=== PATIENT | male | born 1935 | race Two or more races ===

== ENCOUNTER 2018-10-06 19:01 | Inpatient (IN) | payer MEDICARE, MEDICAID ==
[~2018-10-06] VITALS: Ht 182.9 cm; Wt 74.4 kg
--- NOTE | 2018-10-06 19:19 | NUR ---
ED Nurse Note: PAtient BIBA from SNF, with complaints of low HGB.
[2018-10-06] MEDS ORDERED: DEPAKOTE250 MG PO (19:25)
[2018-10-06] MEDS ORDERED: CYMBALTA60 MG ORAL (19:25)
[2018-10-06] MEDS ORDERED: CATAPRES0.1 MG ORAL (19:25)
[2018-10-06] MEDS ORDERED: LEVOTHYROXINE125 MCG ORAL (19:25)
[2018-10-06] MEDS ORDERED: SALINE NOSE SPR45 ML NASAL (19:25)
[2018-10-06] MEDS ORDERED: LOSARTAN POTASS50 MG ORAL (19:25)
[2018-10-06] MEDS ORDERED: DOCUSIL100 M1 ORAL (19:25)
[2018-10-06] MEDS ORDERED: MIRALAX17 G2 ORAL (19:25)
[2018-10-06] MEDS ORDERED: VITAMIN D-32000 UNI1 PO (19:25)
[2018-10-06 19:42] LABS: HEMATOCRIT 17.7 % (42.0-52.0); MEAN CORPUSCULAR VOLUME 75 FL (80-99); PLATELET COUNT 270 K/UL (150-450); RED BLOOD COUNT 2.36 M/UL (4.70-6.10); RED CELL DISTRIBUTION WIDTH 16.3 % (11.6-14.8); WHITE BLOOD COUNT 5.1 K/UL (4.8-10.8)
[2018-10-06 19:52] LABS: HEMOGLOBIN 5.5 G/DL (14.2-18.0)
[2018-10-06 19:54] LABS: ANION GAP 7 mmol/L (5-15); BLOOD UREA NITROGEN 22 mg/dL (7-18); CALCIUM 8.3 MG/DL (8.5-10.1); CARBON DIOXIDE 29 MMOL/L (21-32); CHLORIDE 104 MMOL/L (98-107); CREATININE 0.7 MG/DL (0.55-1.30); SODIUM 140 MMOL/L (136-145)
[2018-10-06 19:58] LABS: ALANINE AMINOTRANSFERASE 34 U/L (12-78); ALBUMIN 2.7 G/DL (3.4-5.0); ALBUMIN/GLOBULIN RATIO 0.8 (1.0-2.7); ALKALINE PHOSPHATASE 77 U/L (46-116); ASPARTATE AMINO TRANSFERASE 30 U/L (15-37); BILIRUBIN,TOTAL 0.2 MG/DL (0.2-1.0)
[2018-10-06 20:01] VITALS: BP 124/62
--- NOTE | 2018-10-06 20:19 | NUR ---
ED Nurse Note: PATIENT RELAXING, APPEARS PALE, WITH LITTLE ENERGY. VITAL SIGNS STABLE.
[2018-10-06 20:23] LABS: % IRON SATURATION 3 % (15-50); IRON 12 ug/dL (50-175); TOTAL IRON BINDING CAPACITY 350 ug/dL (250-450)
[2018-10-06 20:38] LABS: FERRITIN 5 NG/ML (8-388)
--- NOTE | 2018-10-06 21:36 | Emergency Room Report ---
History of Present Illness General Chief Complaint: Abnormal Labs Source: Patient Present Illness HPI 83-year-old male presents ED for evaluation. Brought in by EMS from long term facility for abnormal labs. Noted to have low hemoglobin on recent lab draw. Patient has history of prostate problems and is says he is having profound hematuria. Denies fevers or chills. States he feels weak. Denies blood in stool. Denies any blood thinners. No other aggravating relieving factors. Denies any other associated symptoms Allergies: Coded Allergies: No Known Allergies (Unverified , 10/06/18) Patient History Past Medical History: HTN Past Surgical History: none Pertinent Family History: none Social History: Denies: smoking, alcohol use, drug use Immunizations: UTD Reviewed Nursing Documentation: PMH: Agreed; PSxH: Agreed Nursing Documentation-PMH Hx Hypertension: Yes Review of Systems All Other Systems: negative except mentioned in HPI Physical Exam Vital Signs Date Time Temp Pulse Resp B/P (MAP) Pulse Ox O2 Delivery O2 Flow Rate FiO2 10/06/18 19:09 98.2 75 24 132/72 (92) 94 Room Air Sp02 EP Interpretation: reviewed, normal General Appearance: cachetic, thin Head: normocephalic, atraumatic Eyes: bilateral eye normal inspection, bilateral eye PERRL ENT: hearing grossly normal, normal pharynx, no angioedema, normal voice Neck: full range of motion, supple/symm/no masses Respiratory: chest non-tender, lungs clear, normal breath sounds, speaking full sentences Cardiovascular #1: regular rate, rhythm, no edema Cardiovascular #2: 2+ carotid (R), 2+ carotid (L), 2+ radial (R), 2+ radial (L) , 2+ dorsalis pedis (R), 2+ dorsalis pedis (L) Gastrointestinal: normal bowel sounds, non tender, soft, non-distended, no guarding, no rebound Rectal: deferred Genitourinary: normal inspection, no CVA tenderness Musculoskeletal: back normal, gait/station normal, normal range of motion, non- tender Neurologic: alert, oriented x3, responsive, motor strength/tone normal, sensory intact, speech normal Psychiatric: judgement/insight normal, memory normal, mood/affect normal, no suicidal/homicidal ideation Reflexes: 3+ bicep (R), 3+ bicep (L), 3+ tricep (R), 3+ tricep (L), 3+ knee (R) , 3+ knee (L) Skin: no rash, warm/dry, well hydrated, pallor Lymphatic: no adenopathy Medical Decision Making Diagnostic Impression: Primary Impression: Hematuria Qualified Codes: R31.9 - Hematuria, unspecified Additional Impression: Anemia Qualified Codes: D64.9 - Anemia, unspecified ER Course Hospital Course 83 yo M presents to ED for continued hematuria. low hb on recent labs. Differential diagnoses include: anemia requiring transfusion, microcytic anemia , macrocytic anemia, heavy blood loss Clinical course Patient placed on stretcher. After initial history and physical I ordered labs including CBC and type and screen. Labs- hemoglobin/hematocrit 5.5/17.7. Electrolytes okay, no leukocytosis. coags ok 2 units PRBCs ordered. patient will be admitted to Dr Temple for further care and support Diagnosis - hematuria, anemia Admitted to floor in serious condition Labs Test 10/06/18 19:20 White Blood Count 5.1 K/UL (4.8-10.8) Red Blood Count 2.36 M/UL (4.70-6.10) Hemoglobin 5.5 G/DL (14.2-18.0) Hematocrit 17.7 % (42.0-52.0) Mean Corpuscular Volume 75 FL (80-99) Mean Corpuscular Hemoglobin 23.3 PG (27.0-31.0) Mean Corpuscular Hemoglobin Concent 31.1 G/DL (32.0-36.0) Red Cell Distribution Width 16.3 % (11.6-14.8) Platelet Count 270 K/UL (150-450) Mean Platelet Volume 4.9 FL (6.5-10.1) Neutrophils (%) (Auto) % (45.0-75.0) Lymphocytes (%) (Auto) % (20.0-45.0) Monocytes (%) (Auto) % (1.0-10.0) Eosinophils (%) (Auto) % (0.0-3.0) Basophils (%) (Auto) % (0.0-2.0) Differential Total Cells Counted 100 Neutrophils % (Manual) 68 % (45-75) Lymphocytes % (Manual) 30 % (20-45) Monocytes % (Manual) 1 % (1-10) Eosinophils % (Manual) 1 % (0-3) Basophils % (Manual) 0 % (0-2) Band Neutrophils 0 % (0-8) Platelet Estimate Adequate Platelet Morphology Normal Hypochromasia 3+ Anisocytosis 1+ Prothrombin Time 10.6 SEC (9.30-11.50) Prothromb Time International Ratio 1.0 (0.9-1.1) Activated Partial Thromboplast Time 22 SEC (23-33) Sodium Level 140 MMOL/L (136-145) Potassium Level 4.0 MMOL/L (3.5-5.1) Chloride Level 104 MMOL/L (98-107) Carbon Dioxide Level 29 MMOL/L (21-32) Anion Gap 7 mmol/L (5-15) Blood Urea Nitrogen 22 mg/dL (7-18) Creatinine 0.7 MG/DL (0.55-1.30) Estimat Glomerular Filtration Rate mL/min (>60) Glucose Level 113 MG/DL (74-106) Calcium Level 8.3 MG/DL (8.5-10.1) Iron Level 12 ug/dL (50-175) Total Iron Binding Capacity 350 ug/dL (250-450) Percent Iron Saturation 3 % (15-50) Unsaturated Iron Binding 338 ug/dL (112-346) Ferritin 5 NG/ML (8-388) Total Bilirubin 0.2 MG/DL (0.2-1.0) Aspartate Amino Transf (AST/SGOT) 30 U/L (15-37) Alanine Aminotransferase (ALT/SGPT) 34 U/L (12-78) Alkaline Phosphatase 77 U/L (46-116) Total Protein 6.1 G/DL (6.4-8.2) Albumin 2.7 G/DL (3.4-5.0) Globulin 3.4 g/dL Albumin/Globulin Ratio 0.8 (1.0-2.7) Lipase 202 U/L (73-393) Last Vital Signs Date Time Temp Pulse Resp B/P (MAP) Pulse Ox O2 Delivery O2 Flow Rate FiO2 10/06/18 20:01 98.2 75 28 124/62 94 Room Air Status: improved Disposition: ADMITTED INPATIENT Condition: Serious Referrals: Alban Temple MD (PCP) Mariano Sykes MD October 06, 2018 21:35
[2018-10-06 22:18] VITALS: BP 150/65
--- NOTE | 2018-10-06 22:18 | NUR ---
ED Nurse Note: PATIENT BEGINNING BLOOD TRANSFUSION AT THIS TIME. VITAL SIGNS STABLE PATIENT HAS NO COMPLAINTS.
[2018-10-06 22:33] VITALS: BP 129/49
--- NOTE | 2018-10-07 00:35 | NUR ---
ED Nurse Note: Patient ready for transport to floor following transfusion of PRBCs. Patient A&Ox4, no s/s of transfusion reaction. [facility]
[2018-10-07 01:00] VITALS: BP 198/88
--- NOTE | 2018-10-07 01:00 | NUR ---
NURSE NOTES: received pt from ER, pt AOx4, no acute distress noted, pt with BP 198/88, will call dr miles for BP prn. bed locked and lowest position, bed side rail upx2. call light within reach. will continue to monitor for any change in condition.
[2018-10-07] MEDS ORDERED: Ocean Nasal Spray 45ml NASAL PRN (02:00)
--- NOTE | 2018-10-07 02:30 | NUR ---
NURSE NOTES: received Dr miles orders, orders noted and carried out. pt in bed resting comfortable.
--- NOTE | 2018-10-07 02:35 | History & Physical ---
History and Physical History & Physicial Date of Admission: October 06, 2018. Seen in Emergency Department, 20:00, October 06, 2018. Patient Identification: Mr. Gipson is an 83-year-old gentleman with persistent hematuria who was found to have a hematocrit of 17% at his shelter facility. He was transferred to [facility] for further evaluation and treatment and is being admitted to the medical floor for transfusion and work-up. History of Present Illness: Mr. Gipson was admitted to the [facility] in the latter part of 2017 after hospitalization for altered mental status and adult failure to thrive. The details of his history and physical examination were not available because of his poor history and limited medical records. Patient himself gives a history of prostate cancer and back pain, but his mental status prevented him from naming his physicians and what type of care he had received previously. 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 While at the [facility], the benzodiazepines and narcotics were tapered, the patient was started on Cymbalta for neuropathic chronic pain symptoms, and the patient was stabilized on appropriate diet. He also received physical therapy to initiate remobilization. Patient improved somewhat, and then was transferred to [facility] for [facility] reasons, in May of this year. His medications were further titrated and the patient continued to improve, with clearer mentation, more consistent oral intake, as well as the ability to ambulate with a walker and self propel in a wheelchair for significant distances. Despite these improvements, Mr. Gipson continued to exhibit evidence of patchy cognitive loss, including amnestic deficits, and poor judgment. He continued to wish to return to his own apartment, which was precluded by his inability to actually safely care for himself. His son Ender Gipson is his surrogate decision maker at this time, although the patient episodically disputes his need for such surrogacy. Patient was known to have a history of prostate cancer with metastases, and apparently has had some radiation therapy and/or hormonal manipulation, although the details are uncertain. When he was first admitted to [facility], he had an indwelling Bray catheter, with episodic hematuria. As the patient's mobility improved it was determined that he did not appear to have urinary retention. The Bray catheter was removed and the hematuria appeared to resolve. Over the last 4 to 6 weeks, the patient has developed persistent hematuria. Initial urinalysis and culture failed to provide evidence for an underlying urinary tract infection. The patient was referred to his urologist at [facility], who apparently placed the patient on empiric antibiotics for a 2-week. It is uncertain but it does not appear that cystoscopic evaluation was done to evaluate the cause of the bleeding. As the hematuria persisted the urologist apparently referred the patient to an oncologist who would seen the patient previously. However this appointment was scheduled for the middle of October. Attempts to get phone contact with either the urologist or the oncologist have been unsuccessful. The patient's son was able to get a minimal amount of records from [facility]. These included blood work from August 02 of this year which included a white count of 4.95, hematocrit of 39.6%, MCV of 83.5, platelet count 318, BUN of 20, creatinine of 0.7, PSA of 6.36, and total testosterone of 48. CT of abdomen pelvis done same day revealed a small hypodensity in segment 7 of the liver felt to be an unchanged hemangioma as well as a few unchanged left hepatic cysts, a 1.9 cm left adrenal nodule unchanged, bilateral small renal cysts and tiny nonspecific hypodense lesions, diffuse gallbladder thickening as before, a heterogeneous prostate not significantly enlarged, diffuse osteopenia with a severe compression fracture of L4, a fracture deformity the right each and S3 vertebral body fracture, all of which were new from August 2015 which appeared to be old healed fractures, there was also a left external iliac 10 mm lymph node and severe atherosclerotic changes of the aorta and branches. A CT of the chest revealed severe aortic valve leaflet calcifications and moderate left anterior descending coronary calcifications, severe emphysema with diffuse bronchial wall thickening, a 4mm millimeter right middle lobe nodule, left upper lobe micronodules, a 6 mm left basilar nodule, and a 7 mm right lower lobe nodule which all appear to be new since 2013. A few 7 mm peripheral left lower lobe nodules appear to be unchanged. Bone scan revealed a new L4 compression fracture possibly osteoporotic possibly pathological, uptake in multiple bilateral ribs which may correspond to healing fractures but may represent pathologic changes, and focal uptake in the posterior left ninth rib suspicious for metastasis. Because of persistent hematuria, a CBC was ordered today and returned with hematocrit of 17% resulting in his transfer to the emergency department. Currently Mr. Gipson reports that he has back pain, and that he is quite fatigued, otherwise he denies specific complaints including chest pain or shortness of breath. Neither he nor his son, by telephone, are able to provide details of any evaluation done at [facility], or any detailed pathologic information except as described above. DNR/DNI status was confirmed with the patient's son. Past Medical History: 1. Hematuria as described above. 2. Metastatic prostate cancer of uncertain severity with unclear treatment history. 3. Adult failure to thrive due to poor self-care, resolving with shelter facility treatment. 4. 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 5. History of spinal compression fractures, foraminal stenosis, and recurrent complaints of low back pain. 6. Bony pathology suggestive of rib fracture versus pathologic fractures. 7. Chronic pain syndrome. 8. Idiopathic peripheral neuropathy with neuropathic pain. 9. 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 10. Depressive syndrome with anxiety improved after discontinuation of benzodiazepines, narcotics, and initiation of Cymbalta. 11. Resolved encephalopathy associated with inappropriate use of benzodiazepines and narcotics. 12. Status post right lung surgery for cancer. 13. Possible history of cirrhosis. 14. Chronic obstructive lung disease. 15. History of proptosis status post surgery. 16. History of thyrotoxicosis status post radioactive iodine ablation. 17. History of shingles. 18. 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 19. Osteoarthritis. 20. Osteoporosis. Current Medications: 1. Acetaminophen 500 mg every 4 hours as needed. 2. Advair Diskus 100/51 puff twice daily. 3. Aricept 10 mg nightly. 4. Clonidine 0.1 mg every morning. 5. Depakote extended release 250 mg twice daily. 6. Docusate 100 mg twice daily. 7. Levothyroxine 150 mcg daily. 8. Losartan 50 mg daily. 9. MiraLAX 17 g every 24 hours as needed. 10. Saline nasal spray 2 sprays each nostril twice daily as needed. 11. Vitamin D3 3000 units daily. Allergies: NKDA. Social History: Mr. Gipson was living in his own apartment prior to his hospitalization and shelter facility admissions. 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 According to his son he had been uncooperative with attempts to clean the apartment or to have help. Mr. Gipson was previously smoker and may have also consumed alcohol but the details are uncertain. Family History: Noncontributory. Review of Systems: As noted above Mr. Gipson does complain of some low back pain, which she appears to characterize his chronic. He specifically denies shortness of breath or chest pain or palpitations at this time. Otherwise his responses are vague, and at times tangential or confabulatory. He does note fatigue. No other reliable details can be obtained. The shelter facility staff reports that the patient has been functionally relatively stable otherwise. Physical Examination: Blood pressure 124/62, heart rate 75 and regular, respiratory rate 28, temperature 98.2, oxygen saturation 94% on room air. Subsequently on arriving to the medical floor patient was noted to have a systolic blood pressure as high as 190 with otherwise stable vital signs and no evidence of distress. Generally: Patient is lying on his side on the gurney in the emergency department appearing somewhat subdued but in no acute distress. His speech is fluent consistent with his baseline. He does not appear encephalopathic. Head and neck: Sclera and conjunctive are pale. The oropharynx appears slightly dry. No cervical masses are noted. Cervical range of motion appears normal. Chest: Distant breath sounds but clear with no wheezing or rales. Cardiovascular: The rhythm appears to be regular without overt gallops murmurs or rubs. Abdomen: Normal bowel sounds, soft, nontender, without masses or organomegaly apparent. There may be some mild tenderness without guarding or rebound in the suprapubic area. Extremities: Moderate changes of degenerative joint disease. No calf tenderness or edema. Neurologic: Moves all extremities, limited strength testing because of the patient's fatigue. Laboratories: Sodium 140, potassium 4.0, chloride 104, BUN 22, creatinine 0.7, glucose 113, calcium 8.3, total bilirubin 0.2, AST 30, ALT 34, alkaline phosphatase 77, albumin 2.7, lipase 202, iron 12, iron binding capacity 350, ferritin 5. WBC 5.1, hematocrit 17.7%, MCV 75, platelet count 270, unremarkable differential with 3+ hypochromasia 1+ anisocytosis. INR 1.0 PTT 22. Impression/Plan: 1. Mr. Gipson presents with a significant anemia progressive over several months period, associated with gross hematuria. He will require transfusion at least 2 units for cardiovascular stabilization. The blood is been started by Dr. Sykes in the emergency department. Oral consent was obtained from the patient's son Scot over the phone. Given the marked iron deficiency the patient likely would require Venofer infusions as well for further stabilization. 2. The etiology of the hematuria is unclear. Despite the history of metastatic prostate cancer, the available data does not suggest widespread metastases, with the most likely metastatic disease in the bone. Patient has been treated for possible urinary tract infection, but persistent hematuria of this degree seems unlikely from that cause. It is unclear whether the primary pathology involves the prostate the bladder or even the kidneys. A urology consult has been requested from Dr. Mendoza, with the possibility of cystoscopy. In the meantime renal and pelvic ultrasound will be obtained. 3. Patient's electrocardiogram will be rechecked for possible QT interval prolongation because of the significant dose of Cymbalta. 4. If in fact, cystoscopy is to be considered, cardiac echo and possible cardiology evaluation may be warranted. 5. Once the pathology underlying the bleeding is better defined a more definitive decision can be made about the patient's prognosis and the risk benefit of various types of intervention for the prostate cancer. In any event the patient and the patient's son have indicated that palliation is likely the primary goal, so that invasive therapy should be avoided unless there is significant discomfort that can be treated. 6. Repeat laboratory studies including a PSA and thyroid function tests will be obtained. 7. Because of the subsequent elevation in blood pressure on the medical floor a one-time dose of clonidine 0.1 mg is also been ordered. Additional interventions to be considered depending on the patient's initial response to therapy and further diagnostic evaluation. Alban Temple MD October 07, 2018 02:35
[2018-10-07 04:00] VITALS: BP 117/59
--- NOTE | 2018-10-07 04:45 | NUR ---
NURSE NOTES: second unit blood being transfused, VS stable, will continue to monitor for any blood reaction during transfusion.
[2018-10-07] MEDS ORDERED: Levothyroxine 125mcg tab ORAL SCH (06:30)
--- NOTE | 2018-10-07 06:57 | NUR ---
NURSE NOTES: pt receiving blood transfusion, no transfusion reaction, pt remains stable, no change in condition, bed locked and lowest position, bed rail up x2 and padded for seizures precautions. will endorse care to incoming nurse.
--- NOTE | 2018-10-07 07:45 | NUR ---
NURSE NOTES: Report received from Poly RN, rounds made. Patient resting in supine position in bed. Alert, oriented x4, calm. Denies SOB on RA, pain, NV. PRBCs completed, no reaction noted, clamped blood and opened NS to infuse through line via LAC (site asymptomatic). Vitals obtained, stable. T 97.7 P 69 R 18 BP 163/73 mmHg 97% RA. Patient incontinent of urine, bright red urine with small clots noted. Call light in reach, bed in lowest position, will continue to monitor.
--- NOTE | 2018-10-07 07:45 | NUR ---
HAND-OFF: Report given to mercedez Diaz.
[2018-10-07 08:00] VITALS: BP 163/73
[2018-10-07] MEDS: Docusate 100mg cap ORAL SCH ×2 (08:51→17:58)
[2018-10-07] MEDS: Losartan 50mg tab ORAL SCH (08:52)
[2018-10-07] MEDS: Miralax 17gm pkt ORAL SCH (08:52)
--- NOTE | 2018-10-07 10:50 | NUR ---
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 HEMATURIA VS: BP 150/65, P 75, T 98.2, RR 28, SpO2 94 RBC 2.36, H&H 5.5/17.7, BUN 22, IRON 12, %SATURATION 3 IS:NS 500ml IV CLONIDINE 0.1mg TRANSFUSED 1 UNIT OF PRBC MED/SURG STATUS
[2018-10-07] MEDS: Wixela 100/50 Inhaler - 60 dose INH SCH ×2 (11:01→18:00)
[2018-10-07 12:00] VITALS: BP 130/58
--- NOTE | 2018-10-07 12:06 | Cardiology Report ---
APPROVED REPORT EKG Measurement Heart [id number] Normal sinus rhythm Nonspecific ST and T wave abnormality Abnormal ECG
--- NOTE | 2018-10-07 12:15 | Diagnostic Imaging Report ---
Indication: Hematuria, abnormal be within Technique: Grayscale and duplex images of the kidneys, retroperitoneum, and bladder were obtained. Comparison: none Findings: Right kidney measures 11.4 cm in length. Left kidney measures 11.3 cm in length. Both kidneys demonstrate normal echogenicity. No hydronephrosis. There are small cysts bilaterally. Echogenic foci are seen in the renal sinuses bilaterally. Partially obscured inferior vena cava. Bladder is trabeculated and thick-walled there may be some debris. Plaque-like posterior soft tissue probably just represents wall thickening, but mass also possible.. Prostate volume is 15 mL Impression: Abnormal bladder, with trabeculation likely indicating chronic bladder outlet obstruction. Posterior plaque-like soft tissue most likely represents trabeculation but mass also possible. Correlate with clinical findings, consider cystoscopy if indicated Negative for hydronephrosis Incidental finding bilateral renal cysts Echogenic renal sinus foci bilaterally, could indicate nonobstructive calculi. .
[2018-10-07] MEDS ORDERED: Isovue-300 100ml vial INJ PRN (13:15)
--- NOTE | 2018-10-07 14:24 | Anethesia Preoperative Eval ---
Anesthesia Pre-op PMH/ROS General Date of Evaluation: October 07, 2018 Time of Evaluation: 14:46 Anesthesiologist: Hanh ASA Score: ASA 4 Mallampati Score Class I : Soft palate, uvula, fauces, pillars visible Class II: Soft palate, uvula, fauces visible Class III: Soft palate, base of uvula visible Class IV: Only hard plate visible Mallampati Classification: Class III Surgeon: Reji Diagnosis: Hematuria Surgical Procedure: Cystoscopy with Fulgaration , Posssible TURB Anesthesia History: none Family History: no anesthesia problems Allergies: Coded Allergies: No Known Allergies (Unverified , 10/06/18) Medications: see eMAR Patient NPO?: Yes Past Medical History Cardiovascular: Reports: HTN Pulmonary: Reports: COPD Gastrointestinal/Genitourinary: Reports: GERD, other - Prostate CA, Hematuria Neurologic/Psychiatric: Reports: dementia Endocrine: Reports: hypothyroidism Hematology/Immune: Reports: anemia Musculoskeletal/Integumentary: Reports: other - Fracture of 4th Vertebrae Anesthesia Pre-op Phys. Exam Physician Exam Last Vital Signs Date Time Temp Pulse Resp B/P (MAP) Pulse Ox O2 Delivery O2 Flow Rate FiO2 10/07/18 12:00 98.7 61 20 130/58 (82) 94 10/07/18 11:02 Room Air 21 Constitutional: NAD Neurologic: CN 2-12 intact Cardiovascular: RRR Respiratory: CTA Gastrointestinal: S/NT/ND Airway Exam Mallampati Score: Class III MO: limited ROM: limited Teeth: missing Anesthesia Pre-op A/P Labs Hematology Test 10/06/18 19:20 White Blood Count 5.1 K/UL (4.8-10.8) Red Blood Count 2.36 M/UL (4.70-6.10) L Hemoglobin 5.5 G/DL (14.2-18.0) *L Hematocrit 17.7 % (42.0-52.0) L Mean Corpuscular Volume 75 FL (80-99) L Mean Corpuscular Hemoglobin 23.3 PG (27.0-31.0) L Mean Corpuscular Hemoglobin Concent 31.1 G/DL (32.0-36.0) L Red Cell Distribution Width 16.3 % (11.6-14.8) H Platelet Count 270 K/UL (150-450) Mean Platelet Volume 4.9 FL (6.5-10.1) L Neutrophils (%) (Auto) % (45.0-75.0) Lymphocytes (%) (Auto) % (20.0-45.0) Monocytes (%) (Auto) % (1.0-10.0) Eosinophils (%) (Auto) % (0.0-3.0) Basophils (%) (Auto) % (0.0-2.0) Differential Total Cells Counted 100 Neutrophils % (Manual) 68 % (45-75) Lymphocytes % (Manual) 30 % (20-45) Monocytes % (Manual) 1 % (1-10) Eosinophils % (Manual) 1 % (0-3) Basophils % (Manual) 0 % (0-2) Band Neutrophils 0 % (0-8) Platelet Estimate Adequate Platelet Morphology Normal Hypochromasia 3+ Anisocytosis 1+ Coagulation Test 10/06/18 19:20 Prothrombin Time 10.6 SEC (9.30-11.50) Prothromb Time International Ratio 1.0 (0.9-1.1) Activated Partial Thromboplast Time 22 SEC (23-33) L Chemistry Test 10/06/18 19:20 Sodium Level 140 MMOL/L (136-145) Potassium Level 4.0 MMOL/L (3.5-5.1) Chloride Level 104 MMOL/L (98-107) Carbon Dioxide Level 29 MMOL/L (21-32) Anion Gap 7 mmol/L (5-15) Blood Urea Nitrogen 22 mg/dL (7-18) H Creatinine 0.7 MG/DL (0.55-1.30) Estimat Glomerular Filtration Rate mL/min (>60) Glucose Level 113 MG/DL (74-106) H Calcium Level 8.3 MG/DL (8.5-10.1) L Iron Level 12 ug/dL (50-175) L Total Iron Binding Capacity 350 ug/dL (250-450) Percent Iron Saturation 3 % (15-50) L Unsaturated Iron Binding 338 ug/dL (112-346) Ferritin 5 NG/ML (8-388) L Total Bilirubin 0.2 MG/DL (0.2-1.0) Aspartate Amino Transf (AST/SGOT) 30 U/L (15-37) Alanine Aminotransferase (ALT/SGPT) 34 U/L (12-78) Alkaline Phosphatase 77 U/L (46-116) Total Protein 6.1 G/DL (6.4-8.2) L Albumin 2.7 G/DL (3.4-5.0) L Globulin 3.4 g/dL Albumin/Globulin Ratio 0.8 (1.0-2.7) L Lipase 202 U/L (73-393) Risk Assessment & Plan Assessment: ASA 4 Plan: GA Status Change Before Surgery: No Pre-Antibiotics Drug: Dyllan Westbrook MD October 07, 2018 14:24
--- NOTE | 2018-10-07 14:33 | NUR ---
CT abdomen/pelvis w/wo completed.
[2018-10-07] MEDS: cefTRIAXone 1gm/D5W 55ml IVPB SCH ×2 (15:34)
[2018-10-07 16:00] VITALS: BP 141/64
--- NOTE | 2018-10-07 16:26 | Diagnostic Imaging Report ---
Indication: Hematuria Technique: Precontrast spiral acquisitions obtained through the abdomen and pelvis. IV administration nonionic contrast. Multiphasic spiral acquisitions obtained through the abdomen and pelvis Multiplanar reconstructions were generated. Total dose length product 2530 mGycm. CTDIvol(s) 13, 8, 113, 13, 13, 13 mGy. Radiation dose was minimized using automated exposure control Comparison: No comparison CT scans. Reference made to renal and bladder of earlier the same day Findings: In the posterior aspect of the bladder lumen, there is an irregular polypoid appearing lesion which measures 3.6 cm transverse by 1.2 cm AP by 3.5 cm craniocaudad. This corresponds to the plaque-like abnormality described on recent ultrasound, appears much more polypoid on the current CT. The lesion is endophytic, and there is not appear to be invasion of the perivesical fat. No retroperitoneal lymphadenopathy. There is a single prominent left iliac chain node which measures 15 mm long axis dimension. The remainder of the bladder wall is somewhat irregular and trabeculated, borderline thickened. There is a cyst in the lower pole right kidney. There are bilateral subcentimeter low-attenuation renal lesions which are too small to characterize. No definite solid renal mass. There is a retroaortic left renal vein incidentally noted. No renal or ureteral calculi, hydronephrosis, or hydroureter demonstrated. On the delayed phase images, the collecting systems and ureters appear unremarkable, and a small amount of contrast is seen in the posterior bladder lumen. The liver demonstrates what appears to be a very small left hepatic lobe. No surgical clips are evident, however. Multiple cysts are seen in the liver, as well as subcentimeter low-attenuation lesions which are too small to characterize. The gallbladder is unremarkable. There is dilatation of the extra hepatic bile ducts, common bile duct measuring up to 12 mm in diameter. No definite downstream obstructive lesion is demonstrated. The pancreas and spleen are unremarkable. The right adrenal is unremarkable. The left adrenal demonstrates a 17 mm diameter mass. This demonstrates nonspecific soft tissue attenuation and nonspecific contrast opacification and washout characteristics. No retroperitoneal or mesenteric mass or adenopathy. No pelvic mass or adenopathy. The appendix is not definitely demonstrated, but no findings to suggest acute appendicitis are evident. There is no evidence of diverticulosis or diverticulitis. Moderate amount of retained stool is seen distally in the colon. Small bowel loops are prominent, nonspecifically fluid-filled. The distal esophagus, stomach, duodenum are unremarkable. There is a vertebra plana burst/compression fracture deformity of the L4 vertebral body, with approximately 70% height loss centrally. There is slight posterior retropulsion. There is what is probably a large hemangioma within the T11 vertebral body. The included lung bases demonstrate extensive bullous changes, hyperinflation, and scarring. There is some posterior compressive atelectasis or cicatrization of the right lower lobe, with some associated calcification. A calcified pleural plaque is seen over the dome of the right hemidiaphragm. 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 No evidence of extravesicular invasion Single prominent 15 mm left iliac chain node, nonspecific Bilateral renal cysts. No definite solid renal mass Unusually small left hepatic lobe. Possibly developmental, but could also indicate prior partial left hepatectomy. Correlate with surgical history. Extra hepatic biliary ductal dilatation, without downstream obstructing lesion. Likely on the basis of senescent changes, but occult downstream obstructive lesion not completely excludable. Correlate with liver function tests, consider MRCP if clinically indicated 17 mm left adrenal nodule. This demonstrates nonspecific contrast enhancement and attenuation; statistically most likely benign adenoma but malignancy also possible. Possibilities for follow-up include short interval follow-up imaging, biopsy, or PET/CT, dependent on clinical/oncological considerations Vertebra plana burst/compression fracture deformity of the L4 vertebral body. Age indeterminate although suspect old. Consider MRI for better characterization if clinically relevant Evidence of bullous COPD. Calcified pleural plaque and parenchymal calcification also noted on the right Incidental finding of hepatic cysts The CT scanner at [facility] is accredited by the [employer] and the scans are performed using protocols designed to limit radiation exposure to as low as reasonably achievable to attain images of sufficient resolution adequate for diagnostic evaluation.
--- NOTE | 2018-10-07 16:57 | Geriatric Progress Note ---
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 Likely will require additional rbc or Venofer, await repeat labs. Mobilize with P.T. Await CT results, cystoscopy to determine future intervention. Given lack of severe neuropathic sxs, maintain present Cymbalta dose. Discussed with: patient, hospital staff Subjective Interval Events Patient appears to be lying comfortably in bed, equivocates when asked if he is feeling OK, but without specific sxs. Staff reports no specific new issues. Tolerated transfusion, but repeat labs not done this am, so post transfusion Hct not available. Apparently seen by Dr. Mendoza in interim, started on Tamsulosin, Finasteride, empiric Ceftriaxone. Cystoscopy scheduled for am. Staff reports procedure discussed by Dr. Mendoza with son. U/s with evidence of suspicious bladder area, ? renal stones, but no definite etiology for bleeding. CT abd/pelvis done per Dr. Mendoza, but results not available at this time. Patient reports numbness to feet, but does not endorse definite discomfort. Constitutional: Denies: chills, sweats, fever Respiratory: Denies: cough, shortness of breath Cardiovascular: Denies: chest pain, palpitations Gastrointestinal/Abdominal: Denies: abdominal pain Genitourinary: Denies: dysuria Musculoskeletal: Reports: back pain Geriatric Geriatric Last 24 Hour Vital Signs Date Time Temp Pulse Resp B/P (MAP) Pulse Ox O2 Delivery O2 Flow Rate FiO2 10/07/18 12:00 98.7 61 20 130/58 (82) 94 10/07/18 11:02 67 16 97 Room Air 21 10/07/18 11:01 66 15 97 Room Air 21 10/07/18 09:00 Room Air 10/07/18 08:52 163/73 10/07/18 08:52 163/73 10/07/18 08:00 97.7 69 18 163/73 (103) 97 10/07/18 04:00 98.4 78 20 117/59 (78) 98 10/07/18 02:00 198/88 5/30/19 01:10 Room Air 10/07/18 01:00 98.0 72 20 198/88 (124) 95 10/07/18 00:35 97.4 64 15 129/49 95 Room Air 10/06/18 22:33 97.4 64 16 10/06/18 22:33 97.4 64 15 129/49 95 Room Air 10/06/18 22:18 97.4 70 18 150/65 96 Room Air 10/06/18 22:18 97.9 70 15 10/06/18 20:01 98.2 75 28 124/62 94 Room Air 10/06/18 19:09 98.2 75 24 132/72 (92) 94 Room Air Intake and Output 10/06/18 10/07/18 19:00 07:00 Intake Total 250 ml Balance 250 ml Intake Oral 0 ml Blood Product 250 ml # Voids 1 Laboratory Tests Test 10/06/18 19:20 White Blood Count 5.1 K/UL (4.8-10.8) Red Blood Count 2.36 M/UL (4.70-6.10) L Hemoglobin 5.5 G/DL (14.2-18.0) *L Hematocrit 17.7 % (42.0-52.0) L Mean Corpuscular Volume 75 FL (80-99) L Mean Corpuscular Hemoglobin 23.3 PG (27.0-31.0) L Mean Corpuscular Hemoglobin Concent 31.1 G/DL (32.0-36.0) L Red Cell Distribution Width 16.3 % (11.6-14.8) H Platelet Count 270 K/UL (150-450) Mean Platelet Volume 4.9 FL (6.5-10.1) L Neutrophils (%) (Auto) % (45.0-75.0) Lymphocytes (%) (Auto) % (20.0-45.0) Monocytes (%) (Auto) % (1.0-10.0) Eosinophils (%) (Auto) % (0.0-3.0) Basophils (%) (Auto) % (0.0-2.0) Differential Total Cells Counted 100 Neutrophils % (Manual) 68 % (45-75) Lymphocytes % (Manual) 30 % (20-45) Monocytes % (Manual) 1 % (1-10) Eosinophils % (Manual) 1 % (0-3) Basophils % (Manual) 0 % (0-2) Band Neutrophils 0 % (0-8) Platelet Estimate Adequate Platelet Morphology Normal Hypochromasia 3+ Anisocytosis 1+ Prothrombin Time 10.6 SEC (9.30-11.50) Prothromb Time International Ratio 1.0 (0.9-1.1) Activated Partial Thromboplast Time 22 SEC (23-33) L Sodium Level 140 MMOL/L (136-145) Potassium Level 4.0 MMOL/L (3.5-5.1) Chloride Level 104 MMOL/L (98-107) Carbon Dioxide Level 29 MMOL/L (21-32) Anion Gap 7 mmol/L (5-15) Blood Urea Nitrogen 22 mg/dL (7-18) H Creatinine 0.7 MG/DL (0.55-1.30) Estimat Glomerular Filtration Rate mL/min (>60) Glucose Level 113 MG/DL (74-106) H Calcium Level 8.3 MG/DL (8.5-10.1) L Iron Level 12 ug/dL (50-175) L Total Iron Binding Capacity 350 ug/dL (250-450) Percent Iron Saturation 3 % (15-50) L Unsaturated Iron Binding 338 ug/dL (112-346) Ferritin 5 NG/ML (8-388) L Total Bilirubin 0.2 MG/DL (0.2-1.0) Aspartate Amino Transf (AST/SGOT) 30 U/L (15-37) Alanine Aminotransferase (ALT/SGPT) 34 U/L (12-78) Alkaline Phosphatase 77 U/L (46-116) Total Protein 6.1 G/DL (6.4-8.2) L Albumin 2.7 G/DL (3.4-5.0) L Globulin 3.4 g/dL Albumin/Globulin Ratio 0.8 (1.0-2.7) L Lipase 202 U/L (73-393) Current Medications Medications (Trade) Dose Ordered Sig/Alecia Route PRN Reason Start Time Stop Time Status Last Admin Dose Admin Acetaminophen (Tylenol) 500 mg Q4H PRN ORAL For Pain Level <=5 10/07/18 02:30 11/06/18 02:29 Ceftriaxone Sodium 1 gm/ Dextrose 55 ml @ 110 mls/hr Q24H IVPB 10/07/18 15:00 10/14/18 14:59 10/07/18 15:34 Clonidine HCl (Catapres Tab) 0.1 mg DAILY ORAL 10/07/18 09:00 11/06/18 08:59 10/07/18 08:52 Divalproex Sodium (Depakote) 250 mg Q12HR ORAL 10/07/18 09:00 11/06/18 08:59 10/07/18 08:51 Docusate Sodium (Colace) 100 mg TWICE A DAY ORAL 10/07/18 09:00 11/06/18 08:59 10/07/18 08:51 Donepezil HCl (Aricept) 10 mg QHS ORAL 10/07/18 21:00 11/06/18 20:59 Duloxetine HCl (Cymbalta) 80 mg DAILY ORAL 10/07/18 09:00 11/06/18 08:59 10/07/18 08:51 Finasteride (Proscar) 5 mg DAILY ORAL 10/07/18 13:15 11/06/18 13:14 10/07/18 13:55 Iopamidol (Isovue-300 100ml) 100 ml NOW PRN INJ Radiology Procedure 10/07/18 13:15 10/08/18 23:59 Levothyroxine Sodium (Synthroid) 150 mcg DAILY@0630 ORAL 10/07/18 06:30 11/06/18 06:29 10/07/18 06:36 Losartan Potassium (Cozaar) 50 mg DAILY ORAL 10/07/18 09:00 11/06/18 08:59 10/07/18 08:52 Polyethylene Glycol (Miralax) 17 gm DAILY ORAL 10/07/18 09:00 11/06/18 08:59 10/07/18 08:52 Salmeterol Xinafoate/ Fluticasone (Advair 100/50 Diskus) 1 puffs TWICE A DAY INH 10/07/18 09:00 11/06/18 08:59 10/07/18 11:01 Sodium Chloride (Weld Nasal [place]) 2 spray DAILY PRN NASAL Dryness 10/07/18 02:00 11/06/18 01:59 Tamsulosin HCl (Flomax) 0.4 mg BEDTIME ORAL 10/07/18 21:00 11/06/18 20:59 Height (Feet): 6 Weight (Pounds): 145 General Appearance: no apparent distress, alert, non-toxic Head: normocephalic, atraumatic Eyes: bilateral anicteric ENT: normal voice Neck: full range of motion, no mass Respiratory: lungs clear, decreased breath sounds Cardiovascular: regular rate, rhythm Gastrointestinal: normal bowel sounds, non tender, soft, no mass, no organomegaly, non-distended Musculoskeletal: no calf tenderness Edema: no edema noted Generalized Neurologic: alert, responsive, no new focality Alban Temple MD October 07, 2018 16:57
--- NOTE | 2018-10-07 17:00 | NUR ---
NURSE NOTES: Reviewed consent and plans for OR with patient, informed of NPO after MDN. Consent signed. Dr. Mendoza discussed Plan of Care with patient's son.
[2018-10-07 17:24] LABS: HEMATOCRIT 20.9 % (42.0-52.0); MEAN CORPUSCULAR VOLUME 77 FL (80-99); PLATELET COUNT 208 K/UL (150-450); RED BLOOD COUNT 2.71 M/UL (4.70-6.10); RED CELL DISTRIBUTION WIDTH 15.7 % (11.6-14.8); WHITE BLOOD COUNT 4.8 K/UL (4.8-10.8)
[2018-10-07 17:26] LABS: HEMOGLOBIN 6.9 G/DL (14.2-18.0)
[2018-10-07 17:40] LABS: ANION GAP 6 mmol/L (5-15); BLOOD UREA NITROGEN 20 mg/dL (7-18); CALCIUM 8.1 MG/DL (8.5-10.1); CARBON DIOXIDE 27 MMOL/L (21-32); CHLORIDE 106 MMOL/L (98-107); CREATININE 0.7 MG/DL (0.55-1.30); POTASSIUM 4.1 MMOL/L (3.5-5.1); SODIUM 139 MMOL/L (136-145)
[2018-10-07 18:01] LABS: ALANINE AMINOTRANSFERASE 31 U/L (12-78); ALBUMIN 2.5 G/DL (3.4-5.0); ALBUMIN/GLOBULIN RATIO 0.8 (1.0-2.7); ALKALINE PHOSPHATASE 70 U/L (46-116); ASPARTATE AMINO TRANSFERASE 24 U/L (15-37); BILIRUBIN,TOTAL 0.3 MG/DL (0.2-1.0)
--- NOTE | 2018-10-07 18:15 | Consultation ---
DATE OF CONSULTATION: 10/07/2018 UROLOGY CONSULTATION ATTENDING/CONSULTING PHYSICIAN: Alban Temple M.D. CHIEF COMPLAINT/HISTORY OF PRESENT ILLNESS: I was asked asked by Dr. Temple to evaluate this 83-year-old gentleman regarding a history of ongoing gross hematuria. Briefly, the patient has a history of prostate cancer. He has previously received treatment for the same with radiation therapy and androgen deprivation. Apparently, he also has a history of metastasis for the same. He has been followed at [facility] for some intermittent episodic hematuria. More recently, he developed ongoing hematuria despite a course of extensive antibiotics. It does not appear that cystoscopy was done to evaluate the same. The patient was brought to the hospital for transfusion and further evaluation of the same. His most recent PSA was 6.3 in July of this year. A CT scan of the abdomen and pelvis done elsewhere, heterogenous prostate, but no evidence of significant renal masses or other sources of bleeding. There was evidence of compression fractures of the spine perhaps consistent with his history of metastatic prostate cancer. Given the above, I was asked to evaluate the patient. PAST MEDICAL HISTORY: 1. Metastatic prostate cancer. 2. Gross hematuria. 3. Mild dementia. 4. Peripheral neuropathy. 5. Chronic obstructive pulmonary disease. 6. Thyrotoxicosis. 7. Proptosis. 8. Shingles. 9. Osteoarthritis. 10. Osteoporosis. 11. Chronic pain syndrome. PAST SURGICAL HISTORY: 1. Prostate needle biopsy. 2. Surgery for proptosis. 3. Radioactive iodine ablation for thyrotoxicosis. MEDICATIONS: Please see the chart for current medications and administration details. ALLERGIES: No known drug allergies. SOCIAL HISTORY: Unremarkable for current tobacco, alcohol, or drug use. He apparently used to smoke and may have consumed alcohol in a significant fashion in the past. PAST FAMILY HISTORY: Noncontributory. REVIEW OF SYSTEMS: A 14-system review of systems was difficult to do as the patient cannot cooperate fully with questioning. PHYSICAL EXAMINATION: GENERAL: The patient is an older gentleman, awake and alert, not fully oriented, in no obvious distress. HEENT: NC/AT. Neck is supple. Oropharynx clear. CHEST: Within normal limits. ABDOMEN: Soft, nontender, and nondistended. EXTREMITIES: Warm and well perfused. No cyanosis, clubbing, or edema. BACK: No CVA tenderness to percussion. NEUROLOGIC: Notable for mild cognitive impairment. The remainder of the exam is grossly nonfocal. LABORATORY DATA: Sodium 140, potassium 4.0, chloride 104, bicarbonate 29, BUN 22, creatinine 0.7, and glucose 113. Calcium 8.3. LFTs within normal limits. PT 10.6, INR 1.0, and PTT 22. White blood cell count 5.1, hematocrit 17.7, and platelets 270,000. DIAGNOSTIC IMAGING: Renal ultrasound with abnormal bladder and trabeculation. There is a posterior plaque like soft tissue, which may represent trabeculation but a mass is also possible. There is no evidence of hydronephrosis. There is incidental bilateral renal cysts. ASSESSMENT AND PLAN: In summary, the patient is an 83-year-old with a history of metastatic prostate cancer. He also has developed gross hematuria, which has been intermittent and episodic but which is worsening. The patient has been brought in for transfusion and evaluation of the same. Physical exam reveals an elderly debilitated gentleman, who is awake and alert, but not fully oriented. Laboratory data is notable for significant anemia. Diagnostic imaging with ultrasound is notable for possible bladder mass. I am going to order a repeat CT urogram on this patient in order to better assess for a possible source of upper tract bleeding. Additionally, we will plan for possible cystoscopy with fulguration of bleeding to evaluate additional sources of the same. The patient will be kept NPO past midnight in anticipation of going to the operating room tomorrow for the same. I will discuss it with his son, who is the power of party coordinator to obtain informed consent. Thank you for allowing me to participate in the care of this unfortunate gentleman. Please do not hesitate to contact me for any questions that you may further have regarding his care. I will see him with you as needed. Kulwant Mendoza M.D. DR: PAULINA JOB#: [id number] CC:
[2018-10-07] MEDS: Acetaminophen 650mg/20.3ml ORAL PRN ×2 (18:27→23:29)
--- NOTE | 2018-10-07 19:15 | NUR ---
NURSE NOTES: One unit PRBCs started at 1900. Pre-transfusion vitals obtained, 1850 T 97.6 P 64 R 18 BP 149/73 95%RA. Patient asymptomatic, no SOB, no fever. Vitals 15 mins after transfusion started obtained, 1915 T 97.7 P 61 R 17 BP 150/73 94% RA. Call light in reach, will continue to monitor.
[2018-10-07] MEDS ORDERED: VITAMIN D1000 UNI1 ORAL (19:24)
[2018-10-07] MEDS ORDERED: DONEPEZIL HCL10 MG ORAL (19:24)
[2018-10-07] MEDS ORDERED: ASPIRIN EC81 MG ORAL (19:24)
[2018-10-07] MEDS ORDERED: ACETAMINOPHEN500 M5 ORAL (19:24)
[2018-10-07] MEDS ORDERED: SYNTHROID150 MCG ORAL (19:24)
[2018-10-07] MEDS ORDERED: ADVAIR 100-501 EACH INH (19:24)
[2018-10-07] MEDS ORDERED: CYMBALTA20 MG ORAL (19:24)
--- NOTE | 2018-10-07 19:40 | NUR ---
HAND-OFF: Report given to Emperatriz RN.
--- NOTE | 2018-10-07 19:45 | NUR ---
NURSE NOTES: RECEIVED PT FROM LONNIE ESPINOZA. PT IS AWAKE, AAO X4. PT IS CURRENTLY RECEIVING PACKED RBC. NO REACTIONS OR ACUTE DISTRESS NOTED. PT DENIES PAIN AT THE MOMENT. REINFORCED TEACHING ABOUT NPO ORDER AT MIDNIGHT. PT VERBALIZED UNDERSTANDING. IV ON L FA 18G IS INTACT AND PATENT. BED IS LOCKED AT THE LOWEST POSITION, BED ALARMS ACTIVE, SIDE RAILS UP X2 AND CALL LIGHT IS WITHIN REACH. WILL CONTINUE TO MONITOR.
[2018-10-07 20:00] VITALS: BP 149/74
[2018-10-07] MEDS: Tamsulosin 0.4mg cap ORAL SCH (22:14)
[2018-10-07] MEDS: Donepezil 10mg tab ORAL SCH (22:15)
--- NOTE | 2018-10-07 23:30 | NUR ---
NURSE NOTES: Pt is received from Emperatriz, RN in stable condition. Vitals stable. 2 unit of PRBC given during last shift. Pt signed consent for procedure tomorrow. Pt is to be NPO after midnight;pt instructed. Bed locked low in position, side rails up, call light within reach. Bed alarm on. Fall precaution implemented. Pt instructed to call before getting out of bed.
--- NOTE | 2018-10-07 23:30 | NUR ---
HAND-OFF: REPORT GIVEN TO LONNIE ROCHA. PT IS IN STABLE CONDITION. BLOOD INFUSION COMPLETED, NO REACTION NOTED. ENDORSE TO LONNIE ROCHA ABOUT NPO ORDER FOR PROCEDURE IN AM.
[2018-10-08] VITALS (13 sets, daily range): BP systolic 146–192; BP diastolic 73–103
--- NOTE | 2018-10-08 05:32 | NUR ---
NURSE NOTES: Pt is in bed. asleep. No acute distress noted. Pt is currently NPO.
--- NOTE | 2018-10-08 07:30 | NUR ---
HAND-OFF: Report given to Gricel Ayala RN.Informed to keep pt NPO for procedure.
--- NOTE | 2018-10-08 07:56 | NUR ---
NURSE NOTES: Pt NPO at this time , procedure pending. Pt in stable condition, bed in low position, call light in reach
[2018-10-08 07:58] LABS: BASOPHILS % (AUTO) 1.6 % (0.0-2.0); HEMATOCRIT 25.9 % (42.0-52.0); HEMOGLOBIN 8.5 G/DL (14.2-18.0); LYMPHOCYTES % (AUTO) 22.1 % (20.0-45.0); MEAN CORPUSCULAR VOLUME 79 FL (80-99); NEUTROPHILS % (AUTO) 59.4 % (45.0-75.0); PLATELET COUNT 195 K/UL (150-450); RED BLOOD COUNT 3.27 M/UL (4.70-6.10); RED CELL DISTRIBUTION WIDTH 16.9 % (11.6-14.8); WHITE BLOOD COUNT 3.9 K/UL (4.8-10.8)
[2018-10-08 08:11] LABS: ANION GAP 7 mmol/L (5-15); BLOOD UREA NITROGEN 15 mg/dL (7-18); CALCIUM 8.3 MG/DL (8.5-10.1); CARBON DIOXIDE 29 MMOL/L (21-32); CHLORIDE 106 MMOL/L (98-107); CREATININE 0.7 MG/DL (0.55-1.30); SODIUM 142 MMOL/L (136-145)
[2018-10-08] MEDS: Docusate 100mg cap ORAL SCH ×2 (09:00→16:52)
[2018-10-08] MEDS: Losartan 50mg tab ORAL SCH (09:00)
[2018-10-08] MEDS: Miralax 17gm pkt ORAL SCH (09:00)
[2018-10-08] MEDS: Wixela 100/50 Inhaler - 60 dose INH SCH ×2 (09:09→20:20)
--- NOTE | 2018-10-08 09:58 | NUR ---
P.T NOTE: P.T EVALUATION COMPLETED AND TREATMENT INITIATED. PLEASE REFER TO P.T EVALUATION FOR CURRENT FUNCTIONAL STATUS. PATIENT IS ALERT, 0 X4 AND COOPERATIVE. PATIENT C/O LOWER BACK PAIN AND BURNING SENSATION WHEN URINATING : UNABLE RATE PAIN. PATIENT PRESENTED, NUMBNESS OF B FEET, GENERALIZED WEAKNESS AND MUSCLE FATIGUE AFFECTING OVERALL FUNCTIONAL MOBILITY INDEPENDENCE AND SAFETY. MIN A X 1 FOR BED MOBILITY, TRANSFERS AND GAIT WITH [facility]. SKILLED P.T SERVICE IS WARRANTED TO IMPROVE STRENGTH, BALANCE AND ENDURANCE TO INCREASE FUNCTIONAL MOBILITY INDEPENDENCE AND SAFETY. RECOMMEND RETURN TO PRIOR LIVING ARRANGEMENT ( SNF) WITH CONTINUED REHAB AT [facility].THANK YOU FOR THIS REFERRAL.
--- NOTE | 2018-10-08 11:09 | Geriatric Progress Note ---
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 NPO now for ~12 hrs. Will start IVF pending surgery. PSA only minimally elevated, suggesting relatively well controlled disease. Unclear what element of bony disease is due to mets vs. degenerative and osteoporotic changes. Will give additional Venofer given severity of Fe deficiency. Continue to monitor labs. Await surgical findings to guide future therapy. Discussed with: patient, hospital staff Subjective Interval Events Patient resting in bed. Scheduled for cystoscopy in am, but still not called. C/o being hungry, back pain as before. Staff reports no new issues. Hct now 25% after 3u prbc. Azotemia resolved. Appears optimized for cystoscopy with possible fulguration. Constitutional: Denies: chills, sweats, fever Respiratory: Denies: shortness of breath Cardiovascular: Denies: chest pain, palpitations Genitourinary: Denies: dysuria Geriatric Geriatric Last 24 Hour Vital Signs Date Time Temp Pulse Resp B/P (MAP) Pulse Ox O2 Delivery O2 Flow Rate FiO2 10/08/18 09:12 67 20 97 Room Air 21 10/08/18 09:11 68 20 97 Room Air 21 10/08/18 04:00 97.8 68 18 146/73 (97) 96 10/08/18 00:00 97.5 66 18 159/78 (105) 95 10/07/18 21:00 Room Air 10/07/18 20:22 61 20 96 Room Air 21 10/07/18 20:21 60 20 95 Room Air 21 10/07/18 20:00 98.5 61 18 149/74 (99) 96 10/07/18 16:00 98.1 64 20 141/64 (89) 98 10/07/18 12:00 98.7 61 20 130/58 (82) 94 10/07/18 11:02 67 16 97 Room Air 21 Intake and Output 10/07/18 10/08/18 19:00 07:00 Intake Total 1004 ml Balance 1004 ml Intake Oral 720 ml Blood Product 284 ml # Voids 3 5 # Bowel Movements 1 Laboratory Tests Test 10/07/18 16:50 10/08/18 07:37 White Blood Count 4.8 K/UL (4.8-10.8) 3.9 K/UL (4.8-10.8) L Red Blood Count 2.71 M/UL (4.70-6.10) L 3.27 M/UL (4.70-6.10) L Hemoglobin 6.9 G/DL (14.2-18.0) *L 8.5 G/DL (14.2-18.0) L Hematocrit 20.9 % (42.0-52.0) L 25.9 % (42.0-52.0) L Mean Corpuscular Volume 77 FL (80-99) L 79 FL (80-99) L Mean Corpuscular Hemoglobin 25.3 PG (27.0-31.0) L 25.9 PG (27.0-31.0) L Mean Corpuscular Hemoglobin Concent 32.8 G/DL (32.0-36.0) 32.7 G/DL (32.0-36.0) Red Cell Distribution Width 15.7 % (11.6-14.8) H 16.9 % (11.6-14.8) H Platelet Count 208 K/UL (150-450) 195 K/UL (150-450) Mean Platelet Volume 4.4 FL (6.5-10.1) L 5.0 FL (6.5-10.1) L Neutrophils (%) (Auto) % (45.0-75.0) 59.4 % (45.0-75.0) Lymphocytes (%) (Auto) % (20.0-45.0) 22.1 % (20.0-45.0) Monocytes (%) (Auto) % (1.0-10.0) 12.0 % (1.0-10.0) H Eosinophils (%) (Auto) % (0.0-3.0) 5.0 % (0.0-3.0) H Basophils (%) (Auto) % (0.0-2.0) 1.6 % (0.0-2.0) Differential Total Cells Counted 100 Neutrophils % (Manual) 68 % (45-75) Lymphocytes % (Manual) 22 % (20-45) Monocytes % (Manual) 7 % (1-10) Eosinophils % (Manual) 2 % (0-3) Basophils % (Manual) 1 % (0-2) Band Neutrophils 0 % (0-8) Nucleated Red Blood Cells 4 /100 WBC Platelet Estimate Adequate Platelet Morphology Normal Polychromasia 1+ Anisocytosis 1+ Microcytosis 2+ Sodium Level 139 MMOL/L (136-145) 142 MMOL/L (136-145) Potassium Level 4.1 MMOL/L (3.5-5.1) 4.0 MMOL/L (3.5-5.1) Chloride Level 106 MMOL/L (98-107) 106 MMOL/L (98-107) Carbon Dioxide Level 27 MMOL/L (21-32) 29 MMOL/L (21-32) Anion Gap 6 mmol/L (5-15) 7 mmol/L (5-15) Blood Urea Nitrogen 20 mg/dL (7-18) H 15 mg/dL (7-18) Creatinine 0.7 MG/DL (0.55-1.30) 0.7 MG/DL (0.55-1.30) Estimat Glomerular Filtration Rate mL/min (>60) mL/min (>60) Glucose Level 106 MG/DL (74-106) 100 MG/DL (74-106) Calcium Level 8.1 MG/DL (8.5-10.1) L 8.3 MG/DL (8.5-10.1) L Magnesium Level 1.9 MG/DL (1.8-2.4) Total Bilirubin 0.3 MG/DL (0.2-1.0) Aspartate Amino Transf (AST/SGOT) 24 U/L (15-37) Alanine Aminotransferase (ALT/SGPT) 31 U/L (12-78) Alkaline Phosphatase 70 U/L (46-116) Total Protein 5.7 G/DL (6.4-8.2) L Albumin 2.5 G/DL (3.4-5.0) L Globulin 3.2 g/dL Albumin/Globulin Ratio 0.8 (1.0-2.7) L Prostate Specific Antigen 6.35 ng/mL (0.13-4.0) H Thyroid Stimulating Hormone (TSH) 0.223 uiU/mL (0.358-3.740) Free Thyroxine 1.21 NG/DL (0.76-1.46) Current Medications Medications (Trade) Dose Ordered Sig/Alecia Route PRN Reason Start Time Stop Time Status Last Admin Dose Admin Acetaminophen (Tylenol) 500 mg Q4H PRN ORAL For Pain Level <=5 10/07/18 02:30 11/06/18 02:29 10/07/18 23:29 Ceftriaxone Sodium 1 gm/ Dextrose 55 ml @ 110 mls/hr Q24H IVPB 10/07/18 15:00 10/14/18 14:59 10/07/18 15:34 Clonidine HCl (Catapres Tab) 0.1 mg DAILY ORAL 10/07/18 09:00 11/06/18 08:59 10/07/18 08:52 Dextrose/ Electrolytes 1,000 ml @ 75 mls/hr [id number] IV 10/08/18 11:00 11/07/18 10:59 UNV Divalproex Sodium (Depakote) 250 mg Q12HR ORAL 10/07/18 09:00 11/06/18 08:59 10/07/18 22:15 Docusate Sodium (Colace) 100 mg TWICE A DAY ORAL 10/07/18 09:00 11/06/18 08:59 10/07/18 17:58 Donepezil HCl (Aricept) 10 mg QHS ORAL 10/07/18 21:00 11/06/18 20:59 10/07/18 22:15 Duloxetine HCl (Cymbalta) 80 mg DAILY ORAL 10/07/18 09:00 11/06/18 08:59 10/07/18 08:51 Finasteride (Proscar) 5 mg DAILY ORAL 10/07/18 13:15 11/06/18 13:14 10/07/18 13:55 Iopamidol (Isovue-300 100ml) 100 ml NOW PRN INJ Radiology Procedure 10/07/18 13:15 10/08/18 23:59 Levothyroxine Sodium (Synthroid) 150 mcg DAILY@0630 ORAL 10/07/18 06:30 11/06/18 06:29 10/07/18 06:36 Losartan Potassium (Cozaar) 50 mg DAILY ORAL 10/07/18 09:00 11/06/18 08:59 10/07/18 08:52 Polyethylene Glycol (Miralax) 17 gm DAILY ORAL 10/07/18 09:00 11/06/18 08:59 10/07/18 08:52 Salmeterol Xinafoate/ Fluticasone (Advair 100/50 Diskus) 1 puffs TWICE A DAY INH 10/07/18 09:00 11/06/18 08:59 10/08/18 09:09 Sodium Chloride ([place] Nasal [place]) 2 spray DAILY PRN NASAL Dryness 10/07/18 02:00 11/06/18 01:59 Tamsulosin HCl (Flomax) 0.4 mg BEDTIME ORAL 10/07/18 21:00 11/06/18 20:59 10/07/18 22:14 Height (Feet): 6 Weight (Pounds): 145 General Appearance: no apparent distress, alert, non-toxic Head: normocephalic, atraumatic Eyes: bilateral anicteric ENT: normal voice Neck: full range of motion, no mass Respiratory: lungs clear, decreased breath sounds Cardiovascular: regular rate, rhythm Gastrointestinal: normal bowel sounds, non tender, soft, no mass, no organomegaly, non-distended Musculoskeletal: no calf tenderness Edema: no edema noted Generalized Neurologic: no new focality Alban Temple MD October 08, 2018 11:09
--- NOTE | 2018-10-08 11:18 | NUR ---
NURSE NOTES: Pt remains NPO for procedure up with physical therapy. Report given to Mary Jo , made aware of pending procedure
--- NOTE | 2018-10-08 11:19 | NUR ---
HAND-OFF: Report given to Mary Jo FLEMING.
[2018-10-08] MEDS ORDERED: D5 1/2NS w/KCl 20mEq 1,000 ML IV SCH (11:30)
[2018-10-08] MEDS ORDERED: Sterile Water Irrig 1000ml IRRIG ONE (13:00)
[2018-10-08] MEDS ORDERED: LR 1000ml ONE (13:00)
--- NOTE | 2018-10-08 13:12 | Pre-Procedure Note/Attestation ---
Pre-Procedure Note/Attestation Complete Prior to Procedure Planned Procedure: not applicable Procedure Narrative: cystoscopy, possible fulguration of bleeding, possible TURBT Indications for Procedure Pre-Operative Diagnosis: Gross hematuria. Attestation I attest that I discussed the nature of the procedure; its benefits; risks and complications; and alternatives (and the risks and benefits of such alternatives ), prior to the procedure, with the patient (or the patient's legal solar manufacturer's representative). I attest that, if there was a reasonable possibility of needing a blood transfusion, the patient (or the patient's legal solar manufacturer's representative) was given the [facility] standardized written summary, pursuant to the Alexy Ever Blood Safety Act ([place] Health and Safety Code # 1645, as amended). I attest that I re-evaluated the patient just prior to the surgery and that there has been no change in the patient's H&P, except as documented below: Kulwant Mendoza M.D. October 08, 2018 13:12
[2018-10-08] MEDS ORDERED: Propofol 200mg/20ml IV ONE (13:15)
[2018-10-08] MEDS ORDERED: Lidocaine 1% MPF 10mg/ml 5ml ONE (13:15)
[2018-10-08] MEDS ORDERED: fentaNYL 100 mcg/2 mL IV ONE (13:16)
[2018-10-08] MEDS ORDERED: Ketamine 500mg Inj ONE (13:16)
[2018-10-08] MEDS ORDERED: NS Irrig 4000ml IRRIG ONE (13:40)
[2018-10-08] MEDS ORDERED: Sterile Water For Irrig 2000ml IRRIG ONE (13:40)
--- NOTE | 2018-10-08 13:47 | Anethesia Preoperative Eval ---
Anesthesia Pre-op PMH/ROS General Date of Evaluation: October 08, 2018 Time of Evaluation: 12:00 ASA Score: ASA 3 Mallampati Score Class I : Soft palate, uvula, fauces, pillars visible Class II: Soft palate, uvula, fauces visible Class III: Soft palate, base of uvula visible Class IV: Only hard plate visible Mallampati Classification: Class III Allergies: Coded Allergies: No Known Allergies (Unverified , 10/06/18) Patient NPO?: Yes Anesthesia Pre-op Phys. Exam Physician Exam Last Vital Signs Date Time Temp Pulse Resp B/P (MAP) Pulse Ox O2 Delivery O2 Flow Rate FiO2 10/08/18 12:00 97.8 67 18 149/73 (98) 97 10/08/18 09:12 Room Air 21 Airway Exam Mallampati Score: Class III Anesthesia Pre-op A/P Labs Hematology Test 10/07/18 16:50 10/08/18 07:37 White Blood Count 4.8 K/UL (4.8-10.8) 3.9 K/UL (4.8-10.8) L Red Blood Count 2.71 M/UL (4.70-6.10) L 3.27 M/UL (4.70-6.10) L Hemoglobin 6.9 G/DL (14.2-18.0) *L 8.5 G/DL (14.2-18.0) L Hematocrit 20.9 % (42.0-52.0) L 25.9 % (42.0-52.0) L Mean Corpuscular Volume 77 FL (80-99) L 79 FL (80-99) L Mean Corpuscular Hemoglobin 25.3 PG (27.0-31.0) L 25.9 PG (27.0-31.0) L Mean Corpuscular Hemoglobin Concent 32.8 G/DL (32.0-36.0) 32.7 G/DL (32.0-36.0) Red Cell Distribution Width 15.7 % (11.6-14.8) H 16.9 % (11.6-14.8) H Platelet Count 208 K/UL (150-450) 195 K/UL (150-450) Mean Platelet Volume 4.4 FL (6.5-10.1) L 5.0 FL (6.5-10.1) L Neutrophils (%) (Auto) % (45.0-75.0) 59.4 % (45.0-75.0) Lymphocytes (%) (Auto) % (20.0-45.0) 22.1 % (20.0-45.0) Monocytes (%) (Auto) % (1.0-10.0) 12.0 % (1.0-10.0) H Eosinophils (%) (Auto) % (0.0-3.0) 5.0 % (0.0-3.0) H Basophils (%) (Auto) % (0.0-2.0) 1.6 % (0.0-2.0) Differential Total Cells Counted 100 Neutrophils % (Manual) 68 % (45-75) Lymphocytes % (Manual) 22 % (20-45) Monocytes % (Manual) 7 % (1-10) Eosinophils % (Manual) 2 % (0-3) Basophils % (Manual) 1 % (0-2) Band Neutrophils 0 % (0-8) Nucleated Red Blood Cells 4 /100 WBC Platelet Estimate Adequate Platelet Morphology Normal Polychromasia 1+ Anisocytosis 1+ Microcytosis 2+ Chemistry Test 10/07/18 16:50 10/08/18 07:37 Sodium Level 139 MMOL/L (136-145) 142 MMOL/L (136-145) Potassium Level 4.1 MMOL/L (3.5-5.1) 4.0 MMOL/L (3.5-5.1) Chloride Level 106 MMOL/L (98-107) 106 MMOL/L (98-107) Carbon Dioxide Level 27 MMOL/L (21-32) 29 MMOL/L (21-32) Anion Gap 6 mmol/L (5-15) 7 mmol/L (5-15) Blood Urea Nitrogen 20 mg/dL (7-18) H 15 mg/dL (7-18) Creatinine 0.7 MG/DL (0.55-1.30) 0.7 MG/DL (0.55-1.30) Estimat Glomerular Filtration Rate mL/min (>60) mL/min (>60) Glucose Level 106 MG/DL (74-106) 100 MG/DL (74-106) Calcium Level 8.1 MG/DL (8.5-10.1) L 8.3 MG/DL (8.5-10.1) L Magnesium Level 1.9 MG/DL (1.8-2.4) Total Bilirubin 0.3 MG/DL (0.2-1.0) Aspartate Amino Transf (AST/SGOT) 24 U/L (15-37) Alanine Aminotransferase (ALT/SGPT) 31 U/L (12-78) Alkaline Phosphatase 70 U/L (46-116) Total Protein 5.7 G/DL (6.4-8.2) L Albumin 2.5 G/DL (3.4-5.0) L Globulin 3.2 g/dL Albumin/Globulin Ratio 0.8 (1.0-2.7) L Prostate Specific Antigen 6.35 ng/mL (0.13-4.0) H Thyroid Stimulating Hormone (TSH) 0.223 uiU/mL (0.358-3.740) Free Thyroxine 1.21 NG/DL (0.76-1.46) Jonas Reis MD October 08, 2018 13:47
[2018-10-08] MEDS ORDERED: fentaNYL 100 mcg/2 mL IV PRN (14:00)
--- NOTE | 2018-10-08 14:12 | Immediate Post-Op Evaluation ---
Immediate Post-Op Evalulation Immediate Post-Op Evalulation Procedure: cystoscopy Date of Evaluation: October 08, 2018 Time of Evaluation: 14:11 Nausea: No Vomiting: No Jonas Reis MD October 08, 2018 14:12
--- NOTE | 2018-10-08 16:00 | NUR ---
NURSE NOTES: pt back from s/p cysoscopy with preciado catheter in placed. noted with hematuria in preciado bag. denies any pain nor discomfort. will continue to monitor
[2018-10-08] MEDS: cefTRIAXone 1gm/D5W 55ml IVPB SCH ×2 (16:52)
--- NOTE | 2018-10-08 17:26 | 48 Hour Post Anesthesia Eval ---
Post Anesthesia Evaluation Procedure: cystoscopy Date of Evaluation: October 08, 2018 Time of Evaluation: 17:25 Blood Pressure Systolic: 152 0: 87 Pulse Rate: 79 Respiratory Rate: 18 Temperature (Fahrenheit): 98.4 O2 Sat by Pulse Oximetry: 97 Airway: patent Nausea: No Vomiting: No Pain Intensity: 1 Hydration Status: adequate Cardiopulmonary Status: Stable Mental Status/LOC: patient returned to baseline Follow-up Care/Observations: 0 Post-Anesthesia Complications: 0 Follow-up care needed: N/A Dyllan Schafer MD October 08, 2018 17:26
[2018-10-08] MEDS ORDERED: Tubing Blood Filter IV ONE (18:20)
[2018-10-08] MEDS ORDERED: NS 500ML ONE (18:20)
[2018-10-08] MEDS ORDERED: Tubing IV Secondary IV ONE (18:20)
[2018-10-08] MEDS ORDERED: NS 275ml ONE (18:20)
--- NOTE | 2018-10-08 19:01 | Procedure Note ---
DATE OF PROCEDURE: 10/08/2018 UROLOGY OPERATIVE NOTE: PREOPERATIVE DIAGNOSIS: Persistent gross hematuria. POSTOPERATIVE DIAGNOSIS: Persistent gross hematuria. PROCEDURE PERFORMED: Cystoscopy with fulguration of bleeding and bladder irrigation with evacuation of clot. SURGEON: Kulwant Mendoza M.D. ANESTHESIA: General/LMA. ANESTHESIOLOGIST: Jonas Reis M.D., attending. ESTIMATED BLOOD LOSS: None. IV FLUIDS: IV crystalloid only. DRAINS, TUBES, AND CATHETERS: A 16[place] Bray catheter to gravity drainage. SPECIMENS: None. COMPLICATIONS: None. OPERATIVE INDICATION: The patient is an 83-year-old gentleman with a history of metastatic prostate cancer. He has also had intermittent continuous gross hematuria for the last several weeks. This is felt to resolve on antibiotics. Such he and his son were counseled and elected for him to undergo the procedure described above. Once medical clearance was obtained, he was scheduled for this procedure at [facility] on 10/08/2018. OPERATIVE NOTE IN DETAIL: The patient was brought to the operating room and placed on the table in supine position. General anesthesia was then induced. Once the patient had his LMA in place, he was repositioned in dorsal lithotomy, draped and prepped in the usual sterile fashion. Using a 24[place] resectoscope sheath, the urethral meatus was calibrated. The scope was passed along the length of the urethra. The urethra was within normal limits. The prostate was then entered and inspected. There was evidence of bleeding from a couple of veins in the prostate, which appeared to be active. The bladder was then entered and inspected. There was some trabeculation, but no evidence of active bleeding in the bladder. Both ureteral orifices were identified. There was no evidence of mass, tumor, stone, or other abnormality. The scope was brought back into the prostate and the button was introduced into the field of view. I then used the cautery function of the button to cauterize the bleeding blood vessels and any large prominent vessels that looked like they were on the ridge of bleeding. At the conclusion of the fulguration, there was no active bleeding and I could see from the verumontanum into the bladder with no significant bleeding or enlarging blood vessel. The bladder was left full and it remained clear off irrigation. The scope was then removed. A 16[place] Bray catheter was inserted, inflated, and left to gravity drainage. The patient was then taken out of dorsal lithotomy and placed back in supine position. He was cleaned, dried, and dressed. He was awake and extubated without difficulty and transported to recovery in stable condition. I was present and scrubbed for the entire duration of this case. All needle, sponge, and instrument counts were reported correct. Kulwant Mendoza M.D. DR: TEE JOB#: [id number] CC:
--- NOTE | 2018-10-08 19:09 | NUR ---
HAND-OFF: Report given to LONNIE Green Left a msg with Dr. Temple regarding pt's request of sleeping pills.
[2018-10-08] MEDS ORDERED: Iron Sucrose 100 MG in NS 55 ML IV SCH (21:00)
[2018-10-08] MEDS: Tamsulosin 0.4mg cap ORAL SCH ×3 (21:00→21:45)
[2018-10-08] MEDS ORDERED: HYDROcodone/Acetamin 5/325 tab ORAL SCH (21:00)
[2018-10-08] MEDS: Donepezil 10mg tab ORAL SCH (21:20)
[2018-10-08] MEDS: Ramelteon 8mg tab (Approved for Delirium use only) ORAL SCH (21:20)
[2018-10-08] MEDS: Phenazopyridine 200mg tab ORAL SCH (21:20)
[2018-10-09] VITALS (7 sets, daily range): BP systolic 108–172; BP diastolic 57–107
--- NOTE | 2018-10-09 00:50 | NUR ---
NURSE NOTES: Pt received in bed asleep, no c/o pain or signs of distress, call light within reach, able to make needs known, will continue to monitor.
[2018-10-09] MEDS: Acetaminophen 650mg/20.3ml ORAL PRN ×3 (01:41→22:12)
[2018-10-09 06:46] LABS: BASOPHILS % (AUTO) 0.6 % (0.0-2.0); EOSINOPHILS % (AUTO) 2.6 % (0.0-3.0); HEMATOCRIT 25.1 % (42.0-52.0); HEMOGLOBIN 8.3 G/DL (14.2-18.0); LYMPHOCYTES % (AUTO) 15.7 % (20.0-45.0); MEAN CORPUSCULAR VOLUME 80 FL (80-99); MONOCYTES % (AUTO) 12.7 % (1.0-10.0); NEUTROPHILS % (AUTO) 68.4 % (45.0-75.0); PLATELET COUNT 232 K/UL (150-450); RED BLOOD COUNT 3.15 M/UL (4.70-6.10); RED CELL DISTRIBUTION WIDTH 17.7 % (11.6-14.8); WHITE BLOOD COUNT 5.9 K/UL (4.8-10.8)
[2018-10-09 06:54] LABS: ANION GAP 5 mmol/L (5-15); BLOOD UREA NITROGEN 12 mg/dL (7-18); CALCIUM 8.1 MG/DL (8.5-10.1); CARBON DIOXIDE 28 MMOL/L (21-32); CHLORIDE 104 MMOL/L (98-107); CREATININE 0.8 MG/DL (0.55-1.30); POTASSIUM 3.7 MMOL/L (3.5-5.1); SODIUM 137 MMOL/L (136-145)
--- NOTE | 2018-10-09 06:55 | NUR ---
HAND-OFF: Report given to LONNIE Daly.
--- NOTE | 2018-10-09 08:17 | NUR ---
NURSE NOTES: PT AXOX3, ABLE TO MAKE NEEDS KNOWN. STATES BURNING SENSATION FROM CATHETER. PT WITH ROCHA CATH, DRAINING RED/MAROON COLOR URINE. PT EDUCATED ON IMPORTANCE OF CATHETER TO MONITOR URINE COLOR AND OUTPUT. IN NO APPARENT DISTRESS AT THIS TIME. SITTING IN HIGH-CROCKETT'S POSITION EATING BREAKFAST IN BED. BED ALARM ON. BED IN LOWEST POSITION WITH BEDSIDE RAILS X3 RAISED. CALL LIGHT WITHIN REACH.
[2018-10-09] MEDS: Miralax 17gm pkt ORAL SCH ×2 (08:52→09:00)
[2018-10-09] MEDS: Docusate 100mg cap ORAL SCH ×3 (08:52→17:24)
[2018-10-09] MEDS: Losartan 50mg tab ORAL SCH (08:52)
[2018-10-09] MEDS: Phenazopyridine 200mg tab ORAL SCH ×3 (08:52→17:24)
--- NOTE | 2018-10-09 09:00 | NUR ---
NURSE NOTES: RN SPOKE TO DR BARNETT AND REASD RESULTS OF CT ABDOMEN/PELVIS. MADE AWARE OF LESION OF BLADDER. MADE AWARE OF TAVERAS COLORED URINE DRAINING FROM ROCHA CATH. NO NEW ORDERS.
[2018-10-09] MEDS: Wixela 100/50 Inhaler - 60 dose INH SCH ×2 (09:12→18:00)
[2018-10-09] MEDS: cefTRIAXone 1gm/D5W 55ml IVPB SCH ×2 (14:28)
--- NOTE | 2018-10-09 16:00 | NUR ---
NURSE NOTES: DR WEBB CALLED RN, STATED PT CALLED MD AND REQUESTED TO HAVE ROCHA CATH TAKEN OUT. DR WEBB MADE AWARE PT HAS BEEN REQUESTING TO TAKE OUT ROCHA CATH ALL DAY, EVEN THOUGH RN EDUCATED ON PURPOSE OF ROCHA CATH. NO NEW ORDERS.
--- NOTE | 2018-10-09 19:12 | NUR ---
HAND-OFF: Report given to Yusef WATKINS RN.
--- NOTE | 2018-10-09 19:27 | NUR ---
Nurse's notes: Received patient awake and alert, denies any pain or any other distress. Still with a preciado cath draining dark red urine; flowing freely, no kinks; noted some leaking from the penis. call light within reach; bed at lowest position; bed alarm on. no s/s of phlebitis or infiltration of left forearm iv access. will continue plan of care
--- NOTE | 2018-10-09 20:45 | Geriatric Progress Note ---
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 Continue with Bray, observation, f/u per Dr. Mendoza. Given sxs, asked nursing to check bladder scan for possibility of obstruction due to clots in Bray, despite lack of distention appreciated. Continue other tx, recheck labs. Mobilize as tolerated. Discussed with: patient, hospital staff Subjective Interval Events Patient argumentative, reports Bray is blocking his ability to urinate, despite Bray bag filling. Reports discomfort when trying to urinate. Also he is convinced he is bleeding from some other site, despite explanation of his underlying pathology. Despite these c/o actually appeared comfortable on first entering room, was joking. Oral intake good, labs with stable Hct, improved azotemia. Yesterday, on cystoscopy per Dr. Mendoza, evidence of venous bleeding from prostate. Area fulgurated, Bray placed to help tamponade. Last p.m. demanded morphine. Was given [place] one time and started on two days Pyridium. Despite c/o, analgesia actually appears adequate. Bray bag contents with darkening due to Pyridium, but also evidence of fresh blood and some clots. No other specific issues. Remains on Ceftriaxone. Started last p.m. on Rozerem given his increased agitation possibly representing element of post- operative delirium. Constitutional: Denies: chills, sweats, fever Respiratory: Denies: cough, orthopnea, shortness of breath Cardiovascular: Denies: chest pain, palpitations Gastrointestinal/Abdominal: Denies: abdominal pain Genitourinary: Reports: dysuria Musculoskeletal: Reports: back pain Geriatric Geriatric Last 24 Hour Vital Signs Date Time Temp Pulse Resp B/P (MAP) Pulse Ox O2 Delivery O2 Flow Rate FiO2 10/09/18 20:00 98.4 95 18 108/73 (85) 96 10/09/18 19:21 62 16 97 Room Air 21 10/09/18 19:21 62 16 98 Room Air 21 10/09/18 16:00 97.5 76 19 124/62 (82) 96 10/09/18 12:00 97.8 74 18 121/63 (82) 95 10/09/18 11:15 71 125/58 (80) 10/09/18 09:00 Room Air 10/09/18 08:52 172/107 10/09/18 08:52 172/107 10/09/18 08:44 81 16 96 Room Air 21 10/09/18 08:42 68 20 97 Room Air 21 10/09/18 08:00 98.9 90 19 172/107 (128) 95 10/09/18 04:00 98.6 74 19 138/57 (84) 95 10/09/18 00:00 99.1 80 19 130/64 (86) 94 10/08/18 21:00 Room Air Intake and Output 10/08/18 10/09/18 19:00 07:00 Intake Total 830 ml Output Total 420 ml 1200 ml Balance 410 ml -1200 ml IV Total 830 ml Output Urine Total 400 ml 1200 ml Estimated Blood Loss 20 ml # Voids 1 Laboratory Tests Test 10/09/18 05:05 White Blood Count 5.9 K/UL (4.8-10.8) # Red Blood Count 3.15 M/UL (4.70-6.10) L Hemoglobin 8.3 G/DL (14.2-18.0) L Hematocrit 25.1 % (42.0-52.0) L Mean Corpuscular Volume 80 FL (80-99) Mean Corpuscular Hemoglobin 26.3 PG (27.0-31.0) L Mean Corpuscular Hemoglobin Concent 32.9 G/DL (32.0-36.0) Red Cell Distribution Width 17.7 % (11.6-14.8) H Platelet Count 232 K/UL (150-450) Mean Platelet Volume 6.2 FL (6.5-10.1) L Neutrophils (%) (Auto) 68.4 % (45.0-75.0) Lymphocytes (%) (Auto) 15.7 % (20.0-45.0) L Monocytes (%) (Auto) 12.7 % (1.0-10.0) H Eosinophils (%) (Auto) 2.6 % (0.0-3.0) Basophils (%) (Auto) 0.6 % (0.0-2.0) Sodium Level 137 MMOL/L (136-145) Potassium Level 3.7 MMOL/L (3.5-5.1) Chloride Level 104 MMOL/L (98-107) Carbon Dioxide Level 28 MMOL/L (21-32) Anion Gap 5 mmol/L (5-15) Blood Urea Nitrogen 12 mg/dL (7-18) Creatinine 0.8 MG/DL (0.55-1.30) Estimat Glomerular Filtration Rate mL/min (>60) Glucose Level 98 MG/DL (74-106) Calcium Level 8.1 MG/DL (8.5-10.1) L Current Medications Medications (Trade) Dose Ordered Sig/Alecia Route PRN Reason Start Time Stop Time Status Last Admin Dose Admin Acetaminophen (Tylenol) 500 mg Q4H PRN ORAL For Pain Level <=5 10/07/18 02:30 11/06/18 02:29 10/09/18 08:54 Ceftriaxone Sodium 1 gm/ Dextrose 55 ml @ 110 mls/hr Q24H IVPB 10/07/18 15:00 10/14/18 14:59 10/09/18 14:28 Clonidine HCl (Catapres Tab) 0.1 mg DAILY ORAL 10/07/18 09:00 11/06/18 08:59 10/09/18 08:52 Divalproex Sodium (Depakote) 250 mg Q12HR ORAL 10/07/18 09:00 11/06/18 08:59 10/09/18 08:52 Docusate Sodium (Colace) 100 mg TWICE A DAY ORAL 10/07/18 09:00 11/06/18 08:59 10/08/18 16:52 Donepezil HCl (Aricept) 10 mg QHS ORAL 10/07/18 21:00 11/06/18 20:59 10/08/18 21:20 Duloxetine HCl (Cymbalta) 80 mg DAILY ORAL 10/07/18 09:00 11/06/18 08:59 10/09/18 08:53 Finasteride (Proscar) 5 mg DAILY ORAL 10/08/18 14:15 11/07/18 14:14 10/09/18 08:52 Levothyroxine Sodium (Synthroid) 150 mcg DAILY@0630 ORAL 10/07/18 06:30 11/06/18 06:29 10/09/18 06:03 Losartan Potassium (Cozaar) 50 mg DAILY ORAL 10/07/18 09:00 11/06/18 08:59 10/09/18 08:52 Phenazopyridine HCl (Pyridium) 200 mg THREE TIMES A DAY ORAL 10/08/18 21:00 11/07/18 20:59 10/09/18 17:24 Polyethylene Glycol (Miralax) 17 gm DAILY ORAL 10/07/18 09:00 11/06/18 08:59 10/07/18 08:52 Ramelteon (Rozerem) 8 mg QHS ORAL 10/08/18 21:00 11/07/18 20:59 10/08/18 21:20 Salmeterol Xinafoate/ Fluticasone (Advair 100/50 Diskus) 1 puffs TWICE A DAY INH 10/07/18 09:00 11/06/18 08:59 10/09/18 18:00 Sodium Chloride ([place] Nasal [place]) 2 spray DAILY PRN NASAL Dryness 10/07/18 02:00 11/06/18 01:59 Tamsulosin HCl (Flomax) 0.4 mg BEDTIME ORAL 10/07/18 21:00 11/06/18 20:59 10/07/18 22:14 Height (Feet): 6 Height (Inches): 0.00 Weight (Pounds): 145 General Appearance: no apparent distress, alert Head: normocephalic, atraumatic Eyes: bilateral anicteric ENT: normal voice Neck: full range of motion, no mass Respiratory: lungs clear, decreased breath sounds Cardiovascular: regular rate, rhythm Gastrointestinal: normal bowel sounds, non tender, soft, no mass, no organomegaly, non-distended Musculoskeletal: no calf tenderness Edema: no edema noted Generalized Neurologic: no new focality Psychiatric: other - irritable Alban Temple MD Oct 09, 2018 20:45
--- NOTE | 2018-10-09 20:56 | NUR ---
nurse's notes: dr. miles was here to see patient. requested this rn to perform bladder scan that revealed 33ml of urine in bladder. preciado cath secured with leg anchor; very minimal leakage from penis.
[2018-10-09] MEDS: Donepezil 10mg tab ORAL SCH (21:03)
[2018-10-09] MEDS: Tamsulosin 0.4mg cap ORAL SCH (21:04)
[2018-10-09] MEDS: Ramelteon 8mg tab (Approved for Delirium use only) ORAL SCH (21:05)
[2018-10-10] VITALS: BP 105/63
[2018-10-10 04:00] VITALS: BP 164/60
--- NOTE | 2018-10-10 06:27 | NUR ---
nurse's notes: no significant changes noted as of this time. pain managed well with liquid tylenol with good effect. noted very minimal bloody leakage from the penis, however, urine still dark red in color; preciado cath in place, no kinks. total bed care performed; no bm this shift. patient in no apparent distress. will continue to monitor.
[2018-10-10 06:48] LABS: HEMATOCRIT 24.3 % (42.0-52.0); HEMOGLOBIN 7.9 G/DL (14.2-18.0); MEAN CORPUSCULAR VOLUME 80 FL (80-99); PLATELET COUNT 220 K/UL (150-450); RED BLOOD COUNT 3.03 M/UL (4.70-6.10); RED CELL DISTRIBUTION WIDTH 18.5 % (11.6-14.8); WHITE BLOOD COUNT 4.9 K/UL (4.8-10.8)
[2018-10-10 07:07] LABS: ANION GAP 7 mmol/L (5-15); BLOOD UREA NITROGEN 11 mg/dL (7-18); CALCIUM 8.3 MG/DL (8.5-10.1); CARBON DIOXIDE 29 MMOL/L (21-32); CHLORIDE 104 MMOL/L (98-107); CREATININE 0.9 MG/DL (0.55-1.30); POTASSIUM 4.1 MMOL/L (3.5-5.1); SODIUM 140 MMOL/L (136-145)
[2018-10-10 08:00] VITALS: BP 111/60
[2018-10-10] MEDS ORDERED: Iron Sucrose 100 MG in NS 55 ML IV ONE (08:00)
--- NOTE | 2018-10-10 08:04 | NUR ---
NURSE NOTES: received report from LONNIE Green. patient in bed. alert. verbally responsive. no respiratory distress noted in room air. no c/o pain at this time.F/C for retention draining. hematuria noted. IV on LA. bed in the lowest position. call light within reach. will continue to monitor.
[2018-10-10] MEDS: Miralax 17gm pkt ORAL SCH ×2 (09:00→09:17)
[2018-10-10] MEDS: Phenazopyridine 200mg tab ORAL SCH ×2 (09:17→13:03)
[2018-10-10] MEDS: Docusate 100mg cap ORAL SCH ×2 (09:17→17:22)
[2018-10-10] MEDS: Losartan 50mg tab ORAL SCH (09:18)
[2018-10-10] MEDS: Wixela 100/50 Inhaler - 60 dose INH SCH ×2 (09:35→19:58)
--- NOTE | 2018-10-10 10:26 | NUR ---
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 ANEMIA VS: BP 111/83, P 68, T 97.5, RR 20, SpO2 95 CA 8.4, RBC 3.03, H&H 7.9/24.3 IS:CEFTRIAXONE 110ml ARICEPT 10mg RAMELTEON 8mg SYNTHROID 150mg COZAAR 50mg CYMBALTA 80mg DEPAKOTE 250mg CLONIDINE 0.1mg MED/SURG STATUS
[2018-10-10] MEDS: Acetaminophen 650mg/20.3ml ORAL PRN ×2 (10:40→22:09)
--- NOTE | 2018-10-10 10:41 | NUR ---
CHARGE NURSE NOTE: H@H .02/01.3. was called, message left.
--- NOTE | 2018-10-10 11:00 | NUR ---
CHARGE NURSE NOTE: Spoke with , notified him about H@h 7.02/01.3. No new orders were given.
[2018-10-10] MEDS: cefTRIAXone 1gm/D5W 55ml IVPB SCH ×2 (14:58)
--- NOTE | 2018-10-10 15:40 | Geriatric Progress Note ---
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 Continue with Bray, observation, f/u per Dr. Mendoza. Given sxs, asked nursing to check bladder scan for possibility of obstruction due to clots in Bray, despite lack of distention appreciated. Continue other tx, recheck labs. Mobilize as tolerated. Subjective Interval Events Patient reports he is unable to urinate, and that a camera in his penis is blocking the urine. He feels tamsulosin is making it worse. He is sure that only blood is in Bray bag. When shown that Bray fluid is mixed, patient denies. Also discounts fact that bladder scan is showing no significant residual. Also c/o severe pain, but without objective correlates. These sxs appear c/w prior c/o back, leg pain for which he requested narcotics but which responded well to Cymbalta. Oral intake is good. Labs with improving renal function. Hct slightly lower today, but acceptable. Otherwise patient appears stable. Constitutional: Denies: sweats, fever Respiratory: Denies: cough, orthopnea, shortness of breath Cardiovascular: Denies: chest pain, edema, palpitations Gastrointestinal/Abdominal: Denies: diarrhea, nausea, vomiting Geriatric Geriatric Last 24 Hour Vital Signs Date Time Temp Pulse Resp B/P (MAP) Pulse Ox O2 Delivery O2 Flow Rate FiO2 10/10/18 09:38 70 18 96 Room Air 21 10/10/18 09:35 70 18 96 Room Air 21 10/10/18 09:18 111/60 10/10/18 09:18 111/60 10/10/18 09:00 Room Air 10/10/18 08:00 97.3 82 20 111/60 (77) 97 10/10/18 04:00 97.9 70 19 164/60 (94) 97 10/10/18 00:00 98.2 98 20 105/63 (77) 94 10/09/18 21:00 Room Air 10/09/18 20:00 98.4 95 18 108/73 (85) 96 10/09/18 19:21 62 16 97 Room Air 21 10/09/18 19:21 62 16 98 Room Air 21 10/09/18 16:00 97.5 76 19 124/62 (82) 96 Intake and Output 10/09/18 10/10/18 19:00 07:00 Intake Total 955 ml 250 ml Output Total 1900 ml 1100 ml Balance -945 ml -850 ml Intake Oral 250 ml IV Total 55 ml Other 900 ml Output Urine Total 1900 ml 1100 ml Laboratory Tests Test 10/10/18 05:10 White Blood Count 4.9 K/UL (4.8-10.8) Red Blood Count 3.03 M/UL (4.70-6.10) L Hemoglobin 7.9 G/DL (14.2-18.0) L Hematocrit 24.3 % (42.0-52.0) L Mean Corpuscular Volume 80 FL (80-99) Mean Corpuscular Hemoglobin 26.0 PG (27.0-31.0) L Mean Corpuscular Hemoglobin Concent 32.4 G/DL (32.0-36.0) Red Cell Distribution Width 18.5 % (11.6-14.8) H Platelet Count 220 K/UL (150-450) Mean Platelet Volume 5.3 FL (6.5-10.1) L Neutrophils (%) (Auto) % (45.0-75.0) Lymphocytes (%) (Auto) % (20.0-45.0) Monocytes (%) (Auto) % (1.0-10.0) Eosinophils (%) (Auto) % (0.0-3.0) Basophils (%) (Auto) % (0.0-2.0) Differential Total Cells Counted 100 Neutrophils % (Manual) 56 % (45-75) Lymphocytes % (Manual) 28 % (20-45) Monocytes % (Manual) 12 % (1-10) H Eosinophils % (Manual) 4 % (0-3) H Basophils % (Manual) 0 % (0-2) Band Neutrophils 0 % (0-8) Platelet Estimate Adequate Platelet Morphology Normal Polychromasia 1+ Hypochromasia 1+ Anisocytosis 1+ Sodium Level 140 MMOL/L (136-145) Potassium Level 4.1 MMOL/L (3.5-5.1) Chloride Level 104 MMOL/L (98-107) Carbon Dioxide Level 29 MMOL/L (21-32) Anion Gap 7 mmol/L (5-15) Blood Urea Nitrogen 11 mg/dL (7-18) Creatinine 0.9 MG/DL (0.55-1.30) Estimat Glomerular Filtration Rate mL/min (>60) Glucose Level 97 MG/DL (74-106) Calcium Level 8.3 MG/DL (8.5-10.1) L Current Medications Medications (Trade) Dose Ordered Sig/Alecia Route PRN Reason Start Time Stop Time Status Last Admin Dose Admin Acetaminophen (Tylenol) 500 mg Q4H PRN ORAL For Pain Level <=5 10/07/18 02:30 11/06/18 02:29 10/10/18 10:40 Ceftriaxone Sodium 1 gm/ Dextrose 55 ml @ 110 mls/hr Q24H IVPB 10/07/18 15:00 10/14/18 14:59 10/10/18 14:58 Clonidine HCl (Catapres Tab) 0.1 mg DAILY ORAL 10/07/18 09:00 11/06/18 08:59 10/10/18 09:18 Dextromethorphan/ Quinidine (Nuedexta Capsule) 1 cap DAILY ORAL 10/10/18 15:30 11/09/18 15:29 UNV Divalproex Sodium (Depakote) 250 mg Q12HR ORAL 10/07/18 09:00 11/06/18 08:59 10/10/18 09:18 Docusate Sodium (Colace) 100 mg TWICE A DAY ORAL 10/07/18 09:00 11/06/18 08:59 10/10/18 09:17 Donepezil HCl (Aricept) 10 mg QHS ORAL 10/07/18 21:00 11/06/18 20:59 10/09/18 21:03 Duloxetine HCl (Cymbalta) 80 mg DAILY ORAL 10/07/18 09:00 11/06/18 08:59 10/10/18 09:17 Finasteride (Proscar) 5 mg DAILY ORAL 10/08/18 14:15 11/07/18 14:14 10/10/18 09:17 Iron Sucrose 100 mg/Sodium Chloride 60 ml @ 240 mls/hr ONCE ONCE IVPB 10/11/18 06:30 10/11/18 06:44 UNV Levothyroxine Sodium (Synthroid) 150 mcg DAILY@0630 ORAL 10/07/18 06:30 11/06/18 06:29 10/10/18 05:43 Losartan Potassium (Cozaar) 50 mg DAILY ORAL 10/07/18 09:00 11/06/18 08:59 10/10/18 09:18 Polyethylene Glycol (Miralax) 17 gm DAILY ORAL 10/07/18 09:00 11/06/18 08:59 10/07/18 08:52 Ramelteon (Rozerem) 8 mg QHS ORAL 10/08/18 21:00 11/07/18 20:59 10/09/18 21:05 Salmeterol Xinafoate/ Fluticasone (Advair 100/50 Diskus) 1 puffs TWICE A DAY INH 10/07/18 09:00 11/06/18 08:59 10/10/18 09:35 Sodium Chloride ([place] Nasal [place]) 2 spray DAILY PRN NASAL Dryness 10/07/18 02:00 11/06/18 01:59 Tamsulosin HCl (Flomax) 0.4 mg BEDTIME ORAL 10/07/18 21:00 11/06/18 20:59 10/09/18 21:04 Height (Feet): 6 Height (Inches): 0.00 Weight (Pounds): 145 General Appearance: alert, non-toxic Head: normocephalic, atraumatic Eyes: bilateral anicteric ENT: normal voice Neck: full range of motion, no mass Respiratory: lungs clear Cardiovascular: regular rate, rhythm Gastrointestinal: normal bowel sounds, non tender, soft, no mass, no organomegaly, non-distended Musculoskeletal: no calf tenderness Edema: no edema noted Generalized Neurologic: no new focality Psychiatric: anxious, other - irritable Alban Temple MD Oct 10, 2018 15:40
[2018-10-10 16:00] VITALS: BP 128/64
[2018-10-10] MEDS: Nuedexta Capsule 20/10mg ORAL SCH (16:43)
--- NOTE | 2018-10-10 17:22 | NUR ---
NURSE NOTES: refused to take DSS 100mg stool softner. explained risks and benefits, still refused.
--- NOTE | 2018-10-10 17:24 | NUR ---
NURSE NOTES: notified dr. miles regarding hematuria. the urine color is very dark. discontinue the pyridium. recommand change the drainage bag and continue to monitor urine color. order noted and carried out.
--- NOTE | 2018-10-10 19:33 | NUR ---
HAND-OFF: Report given to LONNIE Awan.
--- NOTE | 2018-10-10 19:35 | NUR ---
NURSE NOTES: RECEIVED PT FROM LONNIE ROSEN. PT IS AWAKE, RESTING IN BED WATCHING TV. AAOX4, ON ROOM AIR, UNLABORED BREATHING, DENIES SOB AND PAIN AT THE MOMENT. ROCHA IS PATENT AND DRAINING WELL, DARK BROWN URINE NOTED. IV ON L HAND 24G IS INTACT AND PATENT. BED IS LOCKED AT THE LOWEST POSITION, BED ALARMS ACTIVE, SIDE RAILS UP X2, AND CALL LIGHT IS WITHIN REACH. WILL CONTINUE TO MONITOR.
[2018-10-10 20:00] VITALS: BP_SYST 111; BP_SYST 157; BP_DIAS 83; BP_DIAS 86
[2018-10-10] MEDS: Donepezil 10mg tab ORAL SCH (20:39)
[2018-10-10] MEDS: Ramelteon 8mg tab (Approved for Delirium use only) ORAL SCH (20:40)
[2018-10-10] MEDS: Tamsulosin 0.4mg cap ORAL SCH (20:46)
--- NOTE | 2018-10-10 21:30 | NUR ---
NURSE NOTES: PT REFUSED TAMSULOSIN 0.4MG. RN EXPLAINED RISKS AND BENEFITS, PT STILL REFUSED.
[2018-10-11] VITALS: BP 126/75
--- NOTE | 2018-10-11 02:00 | NUR ---
NURSE NOTES: PT HAD 2 LOOSE BM, RESTLESS, CONFUSED AND TRIED TO GET OUT OF BED. FALL RISK IMPLEMENTED. BED ALARMS ACTIVE, SIDE RAILS UP X3, YELLOW SOCKS AND YELLOW GOWN ON. INFORMED . WAITING FOR ORDERS. WILL FOLLOW UP.
[2018-10-11] MEDS: Acetaminophen 650mg/20.3ml ORAL PRN (03:42)
[2018-10-11 04:00] VITALS: BP 134/68
[2018-10-11] MEDS ORDERED: Iron Sucrose 100 MG in NS 55 ML IV SCH (06:30)
[2018-10-11 07:25] LABS: HEMATOCRIT 22.9 % (42.0-52.0); HEMOGLOBIN 7.3 G/DL (14.2-18.0); MEAN CORPUSCULAR VOLUME 81 FL (80-99); PLATELET COUNT 208 K/UL (150-450); RED BLOOD COUNT 2.82 M/UL (4.70-6.10); RED CELL DISTRIBUTION WIDTH 18.7 % (11.6-14.8); WHITE BLOOD COUNT 4.6 K/UL (4.8-10.8)
--- NOTE | 2018-10-11 07:30 | NUR ---
HAND-OFF: Report given to LONNIE CLAROS.
[2018-10-11 07:37] LABS: ANION GAP 6 mmol/L (5-15); BLOOD UREA NITROGEN 11 mg/dL (7-18); CALCIUM 8.4 MG/DL (8.5-10.1); CARBON DIOXIDE 29 MMOL/L (21-32); CHLORIDE 106 MMOL/L (98-107); CREATININE 0.9 MG/DL (0.55-1.30); POTASSIUM 4.4 MMOL/L (3.5-5.1); SODIUM 141 MMOL/L (136-145)
--- NOTE | 2018-10-11 07:44 | NUR ---
NURSE NOTES: pt in bed with no sob nor in any form of distress noted. preciado still draining dark bloody urine.MD is aware. denies any discomfort at this time. Breathing regular and unlabored. noted with H/H 7.3.9. will follow up with PMD accordingly. Addendum: 10/11/18 at 0950 by HARLAN CALDERON RN NURSE NOTES: Spoke with Dr. Temple regarding H/H and received NNO. will continue to monitor
[2018-10-11 08:00] VITALS: BP 122/60
--- NOTE | 2018-10-11 08:03 | General Progress Note ---
Progress Note Progress Note No events O/N. AFVSS Urine- reddish, some clots PE- abd soft, NT, ND - Bray in place, draining ok Ext WWP A/P- CaP with continual gross hematuria Cysto with prostatic oozing, no bladder mass or other finding noted. Fulgurated same Changed Bray and hand irrigated to clear today- moderate clot Cont same/ finasteride/ abx Kulwant Mendoza M.D. Oct 11, 2018 08:03
[2018-10-11] MEDS: Nuedexta Capsule 20/10mg ORAL SCH (08:46)
[2018-10-11] MEDS: Losartan 50mg tab ORAL SCH (08:48)
[2018-10-11] MEDS: Docusate 100mg cap ORAL SCH ×2 (08:48→17:20)
[2018-10-11] MEDS: Miralax 17gm pkt ORAL SCH (08:49)
[2018-10-11] MEDS: Wixela 100/50 Inhaler - 60 dose INH SCH ×2 (09:46→20:24)
--- NOTE | 2018-10-11 10:20 | NUR ---
NURSE NOTES: D/C IV ON L HAND, STARTED NEW IV ON R WRIST 20G. INTACT AND PATENT. Addendum: 10/12/18 at 0701 by Emperatriz Collins RN WRONG TIME STAMP
--- NOTE | 2018-10-11 10:50 | NUR ---
NURSE NOTES: STARTED 1 UNIT OF BLOOD INFUSION. VVS. NO REACTIONS NOTED THE FIRST 15 MINS. WILL CONTINUE TO MONITOR. Addendum: 10/12/18 at 0702 by Emperatriz Collins RN WRONG TIME STAMP
--- NOTE | 2018-10-11 10:50 | NUR ---
NURSE NOTES: STARTED 1 UNIT OF BLOOD INFUSION. VVS. NO REACTIONS NOTED THE FIRST 15 MINS. WILL CONTINUE TO MONITOR.
[2018-10-11 12:00] VITALS: BP 150/78
[2018-10-11] MEDS: cefTRIAXone 1gm/D5W 55ml IVPB SCH ×2 (14:06)
--- NOTE | 2018-10-11 14:51 | Physician Query ---
Clarification is required for compliance, coding accuracy, and to reflect severity of illness for this patient Dear Dr. Alban Temple Date: 10/11/18 Business Services Coordinator/ CDS Name: Deb Jenkins Clinical Documentation States: 83 yo male presents with a significant anemia progressive over several months period, associated with gross hematuria. He will require transfusion at least 2 units for cardiovascular stabilization...Given the marked iron deficiency the patient likely would require Venofer infusions as well for further stabilization. Labs: 10/06 Hb 5.9 10/07 Hb 6.9 10/08 Hb 8.5 Treatment: IVF, 3 units RBC transfused, IV iron sucrose Please clarify the specific type of anemia below: [] Acute blood loss anemia [] Acute on Chronic blood loss anemia [] Chronic blood loss anemia [] Other ____Acute on subacute [] Unknown Present on Admission: [x] Yes [] No [] Clinically Undetermined Physician signature Date Please also document in your Progress Notes and/or Discharge Summary and indicate if the condition was present on admission. BRANDYD
[2018-10-11 16:00] VITALS: BP 151/76
--- NOTE | 2018-10-11 18:09 | Geriatric Progress Note ---
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 Will transfuse 1u prbc additionally. Call placed to Dr. Mendoza to discuss further management. If hematuria persists will need to d/c with Bray to SNF. Given additional Venofer in am. Continue other tx. Discussed with: patient, hospital staff Subjective Interval Events Patient now wants Flomax. He feels he is not urinating because he refused Flomax. Remains under delusion of not urinating despite being shown output in Bray bag. Urine continues to exhibit bleeding with mild decrease in Hct. MCV is increasing associated with Venofer and transfusions. Otherwise labs normalizing. No other issues per staff. Constitutional: Denies: chills, sweats, fever Respiratory: Denies: shortness of breath Cardiovascular: Denies: chest pain, palpitations Gastrointestinal/Abdominal: Denies: diarrhea, nausea, vomiting Geriatric Geriatric Last 24 Hour Vital Signs Date Time Temp Pulse Resp B/P (MAP) Pulse Ox O2 Delivery O2 Flow Rate FiO2 10/11/18 16:00 97.2 73 18 151/76 (101) 98 10/11/18 12:00 98.1 79 18 150/78 (102) 98 10/11/18 09:48 74 18 94 Room Air 21 10/11/18 09:46 74 16 94 Room Air 21 10/11/18 09:25 Room Air 10/11/18 08:48 122/60 10/11/18 08:48 122/60 10/11/18 08:00 97.8 76 18 122/60 (80) 98 10/11/18 04:00 97.6 68 16 134/68 (90) 97 10/11/18 00:00 97.5 79 18 126/75 (92) 98 10/10/18 21:00 Room Air 10/10/18 20:00 81 18 95 Room Air 21 10/10/18 20:00 97.8 85 20 111/83 (92) 96 10/10/18 19:59 81 18 95 Room Air 21 Intake and Output 10/10/18 10/11/18 19:00 07:00 Intake Total 410 ml 540 ml Output Total 400 ml 900 ml Balance 10 ml -360 ml Intake Oral 300 ml 300 ml IV Total 110 ml 240 ml Output Urine Total 400 ml 900 ml # Bowel Movements 1 Laboratory Tests Test 10/11/18 06:55 White Blood Count 4.6 K/UL (4.8-10.8) L Red Blood Count 2.82 M/UL (4.70-6.10) L Hemoglobin 7.3 G/DL (14.2-18.0) L Hematocrit 22.9 % (42.0-52.0) L Mean Corpuscular Volume 81 FL (80-99) Mean Corpuscular Hemoglobin 25.7 PG (27.0-31.0) L Mean Corpuscular Hemoglobin Concent 31.7 G/DL (32.0-36.0) L Red Cell Distribution Width 18.7 % (11.6-14.8) H Platelet Count 208 K/UL (150-450) Mean Platelet Volume 5.1 FL (6.5-10.1) L Neutrophils (%) (Auto) % (45.0-75.0) Lymphocytes (%) (Auto) % (20.0-45.0) Monocytes (%) (Auto) % (1.0-10.0) Eosinophils (%) (Auto) % (0.0-3.0) Basophils (%) (Auto) % (0.0-2.0) Differential Total Cells Counted 100 Neutrophils % (Manual) 59 % (45-75) Lymphocytes % (Manual) 21 % (20-45) Monocytes % (Manual) 11 % (1-10) H Eosinophils % (Manual) 8 % (0-3) H Basophils % (Manual) 1 % (0-2) Band Neutrophils 0 % (0-8) Platelet Estimate Adequate Platelet Morphology Normal Hypochromasia 3+ Anisocytosis 2+ Sodium Level 141 MMOL/L (136-145) Potassium Level 4.4 MMOL/L (3.5-5.1) Chloride Level 106 MMOL/L (98-107) Carbon Dioxide Level 29 MMOL/L (21-32) Anion Gap 6 mmol/L (5-15) Blood Urea Nitrogen 11 mg/dL (7-18) Creatinine 0.9 MG/DL (0.55-1.30) Estimat Glomerular Filtration Rate mL/min (>60) Glucose Level 102 MG/DL (74-106) Calcium Level 8.4 MG/DL (8.5-10.1) L Current Medications Medications (Trade) Dose Ordered Sig/Alecia Route PRN Reason Start Time Stop Time Status Last Admin Dose Admin Acetaminophen (Tylenol) 500 mg Q4H PRN ORAL For Pain Level <=5 10/07/18 02:30 11/06/18 02:29 10/11/18 03:42 Ceftriaxone Sodium 1 gm/ Dextrose 55 ml @ 110 mls/hr Q24H IVPB 10/07/18 15:00 10/14/18 14:59 10/11/18 14:06 Clonidine HCl (Catapres Tab) 0.1 mg DAILY ORAL 10/07/18 09:00 11/06/18 08:59 10/11/18 08:48 Dextromethorphan/ Quinidine (Nuedexta Capsule) 1 cap DAILY ORAL 10/10/18 15:30 10/16/18 09:01 10/11/18 08:46 Dextromethorphan/ Quinidine (Nuedexta Capsule) 1 cap Q12HR ORAL 10/16/18 21:00 11/15/18 20:59 Divalproex Sodium (Depakote) 250 mg Q12HR ORAL 10/07/18 09:00 11/06/18 08:59 10/11/18 08:47 Docusate Sodium (Colace) 100 mg TWICE A DAY ORAL 10/07/18 09:00 11/06/18 08:59 10/11/18 17:20 Donepezil HCl (Aricept) 10 mg QHS ORAL 10/07/18 21:00 11/06/18 20:59 10/10/18 20:39 Duloxetine HCl (Cymbalta) 80 mg DAILY ORAL 10/07/18 09:00 11/06/18 08:59 10/11/18 08:48 Finasteride (Proscar) 5 mg DAILY ORAL 10/08/18 14:15 11/07/18 14:14 10/11/18 08:48 Levothyroxine Sodium (Synthroid) 150 mcg DAILY@0630 ORAL 10/07/18 06:30 11/06/18 06:29 10/11/18 06:06 Losartan Potassium (Cozaar) 50 mg DAILY ORAL 10/07/18 09:00 11/06/18 08:59 10/11/18 08:48 Polyethylene Glycol (Miralax) 17 gm DAILY ORAL 10/07/18 09:00 11/06/18 08:59 10/11/18 08:49 Ramelteon (Rozerem) 8 mg QHS ORAL 10/08/18 21:00 11/07/18 20:59 10/10/18 20:40 Salmeterol Xinafoate/ Fluticasone (Advair 100/50 Diskus) 1 puffs TWICE A DAY INH 10/07/18 09:00 11/06/18 08:59 10/11/18 09:46 Sodium Chloride ([place] Nasal [place]) 2 spray DAILY PRN NASAL Dryness 10/07/18 02:00 11/06/18 01:59 Tamsulosin HCl (Flomax) 0.4 mg BEDTIME ORAL 10/07/18 21:00 11/06/18 20:59 10/09/18 21:04 Height (Feet): 6 Height (Inches): 0.00 Weight (Pounds): 145 General Appearance: no apparent distress, alert, non-toxic Head: normocephalic, atraumatic Eyes: bilateral anicteric ENT: normal voice Neck: full range of motion, no mass Respiratory: lungs clear, decreased breath sounds Cardiovascular: regular rate, rhythm Gastrointestinal: normal bowel sounds, non tender, soft, no mass, no organomegaly, non-distended Musculoskeletal: no calf tenderness Edema: no edema noted Generalized Neurologic: no new focality Psychiatric: other - delusional thought process as noted Alban Temple MD Oct 11, 2018 18:09
--- NOTE | 2018-10-11 19:17 | NUR ---
HAND-OFF: Report given to LONNIE Awan.
--- NOTE | 2018-10-11 19:20 | NUR ---
NURSE NOTES: RECEIVED PT FROM LONNIE FRAUSTO. PT IS AWAKE, AAOX4, ON ROOM AIR, DENIES SOB AND PAIN AT THE MOMENT. NO ACUTE DISTRESS NOTED. IV ON L HAND 24G IS INTACT AND PATENT. DARK RED URINE NOTED. BED IS LOCKED AT THE LOWEST POSITION, BED ALARMS ACTIVE, SIDE RAILS UPX2, AND CALL LIGHT IS WITHIN REACH. WILL CONTINUE TO MONITOR.
[2018-10-11 20:00] VITALS: BP 123/71
[2018-10-11] MEDS: Oxybutynin 5mg tab ORAL SCH ×2 (21:18→22:00)
[2018-10-11] MEDS: Donepezil 10mg tab ORAL SCH (21:18)
[2018-10-11] MEDS: Tamsulosin 0.4mg cap ORAL SCH (21:19)
[2018-10-11] MEDS: Ramelteon 8mg tab (Approved for Delirium use only) ORAL SCH (21:19)
--- NOTE | 2018-10-11 22:20 | NUR ---
NURSE NOTES: D/C IV ON L HAND, STARTED NEW IV ON R WRIST 20G. INTACT AND PATENT.
[2018-10-12] VITALS: BP 128/82
[2018-10-12] MEDS: Acetaminophen 650mg/20.3ml ORAL PRN ×2 (00:15→21:18)
--- NOTE | 2018-10-12 02:30 | NUR ---
NURSE NOTES: COMPLETED BLOOD TRANSFUSION, PT IN STABLE CONDITION, NO REACTIONS NOTED.
[2018-10-12 04:00] VITALS: BP 134/64
[2018-10-12] MEDS ORDERED: Iron Sucrose 100 MG in NS 55 ML IV SCH (06:00)
[2018-10-12] MEDS: Oxybutynin 5mg tab ORAL SCH ×3 (06:09→21:09)
[2018-10-12 06:19] LABS: BASOPHILS % (AUTO) 1.4 % (0.0-2.0); EOSINOPHILS % (AUTO) 6.6 % (0.0-3.0); HEMATOCRIT 25.7 % (42.0-52.0); HEMOGLOBIN 8.2 G/DL (14.2-18.0); LYMPHOCYTES % (AUTO) 15.9 % (20.0-45.0); MEAN CORPUSCULAR VOLUME 83 FL (80-99); MONOCYTES % (AUTO) 12.5 % (1.0-10.0); NEUTROPHILS % (AUTO) 63.7 % (45.0-75.0); PLATELET COUNT 192 K/UL (150-450); RED CELL DISTRIBUTION WIDTH 18.5 % (11.6-14.8); WHITE BLOOD COUNT 5.3 K/UL (4.8-10.8)
[2018-10-12 06:55] LABS: ALANINE AMINOTRANSFERASE 28 U/L (12-78); ALBUMIN 2.5 G/DL (3.4-5.0); ALBUMIN/GLOBULIN RATIO 0.8 (1.0-2.7); ALKALINE PHOSPHATASE 78 U/L (46-116); ANION GAP 6 mmol/L (5-15); ASPARTATE AMINO TRANSFERASE 25 U/L (15-37); BILIRUBIN,TOTAL 0.7 MG/DL (0.2-1.0); BLOOD UREA NITROGEN 11 mg/dL (7-18); CALCIUM 8.1 MG/DL (8.5-10.1); CARBON DIOXIDE 28 MMOL/L (21-32); CHLORIDE 107 MMOL/L (98-107); CREATININE 0.7 MG/DL (0.55-1.30); POTASSIUM 3.8 MMOL/L (3.5-5.1); SODIUM 141 MMOL/L (136-145)
--- NOTE | 2018-10-12 07:53 | NUR ---
HAND-OFF: Report given to LONNIE CLAROS.
[2018-10-12 08:00] VITALS: BP 133/56
--- NOTE | 2018-10-12 09:05 | NUR ---
PT NOTE Attempted to see patient for PT treatment, patient declining to participate with PT at this time, states "I'm too shaky". Gee FLEMING notified, will re-attempt later as schedule permits.
[2018-10-12] MEDS: Wixela 100/50 Inhaler - 60 dose INH SCH ×2 (09:06→20:28)
[2018-10-12] MEDS: Losartan 50mg tab ORAL SCH (09:36)
[2018-10-12] MEDS: Docusate 100mg cap ORAL SCH ×2 (09:37→17:04)
[2018-10-12] MEDS: Miralax 17gm pkt ORAL SCH (09:37)
[2018-10-12] MEDS: Nuedexta Capsule 20/10mg ORAL SCH (09:37)
--- NOTE | 2018-10-12 10:13 | Geriatric Progress Note ---
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 If bleeding persists, ? further procedure vs. d/c on Bray. ? Need for 3 way to allow for more irrigation at SNF. Otherwise labs improved. Continue current regimen at this time. Discussed with: patient, hospital staff Subjective Interval Events Patient ambulating with P.T. Gait is flat-footed, wide based c/w neuropathic changes. Patient calmer today, but staff reports argumentative about Bray earlier. Intake adequate. Patient currently without complaint. Bray continues to drain bloody urine, with some blood expressed around Bray. P.o. Amicar was not available, but IV loading dose will be given. Constitutional: Denies: chills, sweats Respiratory: Denies: shortness of breath Cardiovascular: Denies: chest pain, palpitations Gastrointestinal/Abdominal: Denies: abdominal pain Geriatric Geriatric Last 24 Hour Vital Signs Date Time Temp Pulse Resp B/P (MAP) Pulse Ox O2 Delivery O2 Flow Rate FiO2 10/12/18 09:37 133/56 10/12/18 09:36 133/56 10/12/18 09:08 77 18 93 Room Air 21 10/12/18 09:07 77 16 92 Room Air 21 10/12/18 08:00 98.6 78 20 133/56 (81) 97 10/12/18 04:00 97.3 73 17 134/64 (87) 10/12/18 00:00 98.4 74 18 128/82 (97) 97 10/11/18 21:00 Room Air 10/11/18 20:24 74 18 95 Room Air 21 10/11/18 20:24 74 18 95 Room Air 21 10/11/18 20:00 98.1 75 24 123/71 (88) 94 10/11/18 16:00 97.2 73 18 151/76 (101) 98 10/11/18 12:00 98.1 79 18 150/78 (102) 98 Intake and Output 10/11/18 10/12/18 19:00 07:00 Intake Total 55 ml 300 ml Output Total 1050 ml Balance 55 ml -750 ml Intake Oral 300 ml IV Total 55 ml Output Urine Total 450 ml Stool Total 600 ml # Bowel Movements 4 Laboratory Tests Test 10/12/18 05:45 White Blood Count 5.3 K/UL (4.8-10.8) Red Blood Count 3.10 M/UL (4.70-6.10) L Hemoglobin 8.2 G/DL (14.2-18.0) L Hematocrit 25.7 % (42.0-52.0) L Mean Corpuscular Volume 83 FL (80-99) Mean Corpuscular Hemoglobin 26.4 PG (27.0-31.0) L Mean Corpuscular Hemoglobin Concent 31.8 G/DL (32.0-36.0) L Red Cell Distribution Width 18.5 % (11.6-14.8) H Platelet Count 192 K/UL (150-450) Mean Platelet Volume 5.5 FL (6.5-10.1) L Neutrophils (%) (Auto) 63.7 % (45.0-75.0) Lymphocytes (%) (Auto) 15.9 % (20.0-45.0) L Monocytes (%) (Auto) 12.5 % (1.0-10.0) H Eosinophils (%) (Auto) 6.6 % (0.0-3.0) H Basophils (%) (Auto) 1.4 % (0.0-2.0) Sodium Level 141 MMOL/L (136-145) Potassium Level 3.8 MMOL/L (3.5-5.1) Chloride Level 107 MMOL/L (98-107) Carbon Dioxide Level 28 MMOL/L (21-32) Anion Gap 6 mmol/L (5-15) Blood Urea Nitrogen 11 mg/dL (7-18) Creatinine 0.7 MG/DL (0.55-1.30) Estimat Glomerular Filtration Rate mL/min (>60) Glucose Level 101 MG/DL (74-106) Calcium Level 8.1 MG/DL (8.5-10.1) L Total Bilirubin 0.7 MG/DL (0.2-1.0) Aspartate Amino Transf (AST/SGOT) 25 U/L (15-37) Alanine Aminotransferase (ALT/SGPT) 28 U/L (12-78) Alkaline Phosphatase 78 U/L (46-116) Total Protein 5.8 G/DL (6.4-8.2) L Albumin 2.5 G/DL (3.4-5.0) L Globulin 3.3 g/dL Albumin/Globulin Ratio 0.8 (1.0-2.7) L Current Medications Medications (Trade) Dose Ordered Sig/Alecia Route PRN Reason Start Time Stop Time Status Last Admin Dose Admin Acetaminophen (Tylenol) 500 mg Q4H PRN ORAL For Pain Level <=5 10/07/18 02:30 11/06/18 02:29 10/12/18 00:15 Aminocaproic Acid 4000 mg/Sodium Chloride 126 ml @ 126 mls/hr ONCE ONCE IV 10/12/18 11:00 10/12/18 11:59 Ceftriaxone Sodium 1 gm/ Dextrose 55 ml @ 110 mls/hr Q24H IVPB 10/07/18 15:00 10/14/18 14:59 10/11/18 14:06 Clonidine HCl (Catapres Tab) 0.1 mg DAILY ORAL 10/07/18 09:00 11/06/18 08:59 10/12/18 09:37 Dextromethorphan/ Quinidine (Nuedexta Capsule) 1 cap DAILY ORAL 10/10/18 15:30 10/16/18 09:01 10/12/18 09:37 Dextromethorphan/ Quinidine (Nuedexta Capsule) 1 cap Q12HR ORAL 10/16/18 21:00 11/15/18 20:59 Divalproex Sodium (Depakote) 250 mg Q12HR ORAL 10/07/18 09:00 11/06/18 08:59 10/12/18 09:37 Docusate Sodium (Colace) 100 mg TWICE A DAY ORAL 10/07/18 09:00 11/06/18 08:59 10/11/18 17:20 Donepezil HCl (Aricept) 10 mg QHS ORAL 10/07/18 21:00 11/06/18 20:59 10/11/18 21:18 Duloxetine HCl (Cymbalta) 80 mg DAILY ORAL 10/07/18 09:00 11/06/18 08:59 10/12/18 09:36 Finasteride (Proscar) 5 mg DAILY ORAL 10/08/18 14:15 11/07/18 14:14 10/12/18 09:36 Levothyroxine Sodium (Synthroid) 150 mcg DAILY@0630 ORAL 10/07/18 06:30 11/06/18 06:29 10/12/18 06:09 Losartan Potassium (Cozaar) 50 mg DAILY ORAL 10/07/18 09:00 11/06/18 08:59 10/12/18 09:36 Oxybutynin Chloride (Ditropan) 5 mg Q8HR ORAL 10/11/18 18:26 11/10/18 18:25 10/12/18 06:09 Polyethylene Glycol (Miralax) 17 gm DAILY ORAL 10/07/18 09:00 11/06/18 08:59 10/11/18 08:49 Ramelteon (Rozerem) 8 mg QHS ORAL 10/08/18 21:00 11/07/18 20:59 10/11/18 21:19 Salmeterol Xinafoate/ Fluticasone (Advair 100/50 Diskus) 1 puffs TWICE A DAY INH 10/07/18 09:00 11/06/18 08:59 10/12/18 09:06 Sodium Chloride ([place] Nasal [place]) 2 spray DAILY PRN NASAL Dryness 10/07/18 02:00 11/06/18 01:59 Tamsulosin HCl (Flomax) 0.4 mg BEDTIME ORAL 10/07/18 21:00 11/06/18 20:59 10/11/18 21:19 Height (Feet): 6 Height (Inches): 0.00 Weight (Pounds): 145 General Appearance: no apparent distress, alert, non-toxic Head: normocephalic, atraumatic Eyes: bilateral anicteric ENT: normal voice Neck: full range of motion, no mass Respiratory: lungs clear, decreased breath sounds Cardiovascular: regular rate, rhythm Gastrointestinal: normal bowel sounds, non tender, soft, no mass, no organomegaly, non-distended Musculoskeletal: no calf tenderness Edema: no edema noted Generalized Neurologic: no new focality Alban Temple MD Oct 12, 2018 10:12
[2018-10-12] MEDS ORDERED: NS IV ONE (11:00)
[2018-10-12] MEDS ORDERED: AMINOCAPROIC ACID IV ONE (11:00)
[2018-10-12 12:00] VITALS: BP 129/71
[2018-10-12] MEDS: cefTRIAXone 1gm/D5W 55ml IVPB SCH ×2 (14:16)
[2018-10-12 16:00] VITALS: BP 142/70
--- NOTE | 2018-10-12 19:19 | NUR ---
HAND-OFF: Report given to LONNIE Awan.
--- NOTE | 2018-10-12 19:20 | NUR ---
NURSE NOTES: RECEIVED PT FROM LONNIE CLAROS. PT IS AWAKE, RESTING IN BED, AAOX3. ON ROOM AIR, NO ACUTE DISTRESS NOTED. DENIES PAIN AT THE MOMENT, ONLY WHEN URINATING. ROCHA CATHETER IS INTACT AND DRAINING WELL, ROCHA ANCHOR PRESENT. DARK RED URINE NOTED DRAINING FROM ROCHA CATHETER. AWARE. IV ON RIGHT WRIST 20G IS INTACT AND PATENT. BED IS LOCKED AT THE LOWEST POSITION, BED ALARMS ACTIVE, SIDE RAILS UP X2 AND CALL LIGHT IS WITHIN REACH. WILL CONTINUE TO MONITOR.
[2018-10-12 20:00] VITALS: BP 128/62
[2018-10-12] MEDS: Ramelteon 8mg tab (Approved for Delirium use only) ORAL SCH (20:50)
[2018-10-12] MEDS: Donepezil 10mg tab ORAL SCH (20:51)
[2018-10-12] MEDS: Tamsulosin 0.4mg cap ORAL SCH (20:51)
[2018-10-13] VITALS (7 sets, daily range): BP systolic 113–150; BP diastolic 52–77
--- NOTE | 2018-10-13 | NUR ---
NURSE NOTES: UNABLE TO ADMINISTER PO MEDICATION PER ASPIRATION PRECAUTION. PT IS LETHARGIC AND ASLEEP. VSS. WILL CONTINUE TO MONITOR. Addendum: 10/13/18 at 0120 by Emperatriz Collins RN DISREGARD. INCORRECT PATIENT.
[2018-10-13] MEDS: Acetaminophen 650mg/20.3ml ORAL PRN ×2 (01:22→21:22)
[2018-10-13] MEDS: Oxybutynin 5mg tab ORAL SCH ×3 (05:20→21:22)
[2018-10-13] MEDS ORDERED: Iron Sucrose 100 MG in NS 55 ML IV ONE (06:00)
--- NOTE | 2018-10-13 07:34 | NUR ---
NURSE NOTES: Patient awake, eating breakfast; on room air, no sign of distress and shortness of breath; no sign of chest pain; Bray leaking and drains hematuria; PM RN, Emperatriz is to called and left a message to MD Reis regarding the matter, will follow up on that; patient's Left Hand swollen, MD Temple is aware, PM nurse received order from MD Temple; bed side commode within reach; side rails up x2, breaks engaged, bed at lowest position, bed alarm on. call light within reach, will keep monitoring.
--- NOTE | 2018-10-13 07:38 | NUR ---
NURSE NOTES: RED HARDEN LUMP, AND SWELLING NOTED ON PT'S LEFT ARM. WARM AND PAINFUL TO TOUCH. PT REPORTED THAT IT STARTED AFTER PHLEBOTOMY LINDA HIS BLOOD. NOTIFIED , AND RECEIVED ORDER TO APPLY WARM COMPRESS TID. PT RECEIVED FIRST DOSE OF AMICAR ON 10/12 BUT IS STILL VOIDING BLOOD, AND HIS ROCHA IS LEAKING. AWARE. ALSO LEFT A MESSAGE WITH DR. POWERS. ENDORSED TO AM RN TO FOLLOW UP.
--- NOTE | 2018-10-13 07:46 | NUR ---
HAND-OFF: Report given to LONNIE CASTRO.
[2018-10-13 08:17] LABS: BASOPHILS % (AUTO) 0.6 % (0.0-2.0); EOSINOPHILS % (AUTO) 6.6 % (0.0-3.0); HEMATOCRIT 26.7 % (42.0-52.0); HEMOGLOBIN 8.4 G/DL (14.2-18.0); LYMPHOCYTES % (AUTO) 17.7 % (20.0-45.0); MEAN CORPUSCULAR VOLUME 84 FL (80-99); MONOCYTES % (AUTO) 8.9 % (1.0-10.0); NEUTROPHILS % (AUTO) 66.2 % (45.0-75.0); PLATELET COUNT 203 K/UL (150-450); RED BLOOD COUNT 3.18 M/UL (4.70-6.10); WHITE BLOOD COUNT 4.4 K/UL (4.8-10.8)
[2018-10-13 08:38] LABS: ANION GAP 5 mmol/L (5-15); BLOOD UREA NITROGEN 11 mg/dL (7-18); CALCIUM 8.6 MG/DL (8.5-10.1); CARBON DIOXIDE 30 MMOL/L (21-32); CHLORIDE 106 MMOL/L (98-107); CREATININE 0.7 MG/DL (0.55-1.30); POTASSIUM 3.8 MMOL/L (3.5-5.1); SODIUM 141 MMOL/L (136-145)
[2018-10-13] MEDS: Nuedexta Capsule 20/10mg ORAL SCH (08:50)
[2018-10-13] MEDS: Losartan 50mg tab ORAL SCH (08:51)
[2018-10-13] MEDS: Docusate 100mg cap ORAL SCH ×2 (08:53→17:03)
[2018-10-13] MEDS: Miralax 17gm pkt ORAL SCH (08:53)
[2018-10-13] MEDS: Wixela 100/50 Inhaler - 60 dose INH SCH ×2 (09:00→20:00)
[2018-10-13] MEDS: cefTRIAXone 1gm/D5W 55ml IVPB SCH ×2 (13:57)
--- NOTE | 2018-10-13 14:58 | NUR ---
CASE MANGER REVIEW SI:ENCEPHALOPATHY . DYSURIA VS: BP 136/58, P 65, T 98.4, RR 20, SpO2 94 WBC 4.4, H&H 8.4/26.7 IS:CEFTRIAXONE 5ml IVPB OXYBUTYNIN 5mg CYMBALTA 80mg COZAAR 50mg CLONIDINE 0.1mg DEPAKOTE 250mg IRON SUCROSE 60ml IV MED/SURG STATUS
--- NOTE | 2018-10-13 15:00 | NUR ---
RD ASSESSMENT & RECOMMENDATIONS SEE CARE ACTIVITY FOR COMPLETE ASSESSMENT DAILY ESTIMATED NEEDS: Needs based on General, geriatric/ 74kg 25-30 kcals/kg 8784-9947 total kcals 1-1.3 g protein/kg 74-96 g total protein 25-30 mL/kg 7319-6127 total fluid mLs NUTRITION DIAGNOSIS: Possible swallowing difficulty R/T dysphagia? as evidenced by pt reports chocking on eggs for ten minutes this AM CURRENT DIET:PIOTR, VEGETARIAN PO DIET RECOMMENDATIONS: Maintain NO ADDED SALT, VEGETARIAN/ texture per CONTINUOUS IMPROVEMENT COORDINATOR ADDITIONAL RECOMMENDATIONS: * CONSIDER CONTINUOUS IMPROVEMENT COORDINATOR EVALUATION FOR APPROPRIATE TEXTURE * STANDING WT ABLE FOR ACCURATE CBW * MONITOR FOR CONTINUED GOOD PO INTAKE
--- NOTE | 2018-10-13 17:36 | Geriatric Progress Note ---
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 Await Vascular studies. Message left with Dr. Mendoza re additional interventions vs. d/c to SNF with Bray in place. Additional Venofer for tomorrow. Discussed with: patient, hospital staff Subjective Interval Events Patient with continued bleeding in urine. Nurses noted additional blood from tip of penis external to cath. Order from Dr. Mendoza to change catheter. Current output is gross hematuria. Nurses also noted indurated erythematous area in L forearm. Patient denies pain , tenderness. Warm compresses ordered. Hand is warm, but ? if IV infiltration with element of Amicar related thrombosis. Will order stat vascular studies. Otherwise functionally the same. Labs remain stable for now. Message left for Dr. Mendoza re ? additional interventions vs d/c to SNF with Bray. Constitutional: Denies: chills, sweats, fever Respiratory: Denies: shortness of breath Cardiovascular: Denies: chest pain, palpitations Gastrointestinal/Abdominal: Denies: diarrhea, nausea, vomiting Genitourinary: Denies: dysuria Geriatric Geriatric Last 24 Hour Vital Signs Date Time Temp Pulse Resp B/P (MAP) Pulse Ox O2 Delivery O2 Flow Rate FiO2 10/13/18 16:31 Room Air 10/13/18 16:00 Room Air 10/13/18 16:00 98.1 66 20 137/77 (97) 97 10/13/18 12:00 98.4 65 20 120/62 (81) 97 10/13/18 09:00 66 16 95 Room Air 21 10/13/18 09:00 Room Air 10/13/18 09:00 68 16 94 Room Air 21 10/13/18 08:51 117/63 10/13/18 08:50 117/63 10/13/18 08:00 98.2 67 19 117/63 (81) 96 10/13/18 04:00 98.3 69 18 136/58 (84) 94 10/13/18 00:00 98.1 68 18 150/72 (98) 94 10/12/18 21:00 Room Air 10/12/18 20:30 66 16 93 Room Air 21 10/12/18 20:29 66 16 92 Room Air 21 10/12/18 20:00 98.4 67 24 128/62 (84) 98 Intake and Output 10/12/18 10/13/18 18:59 06:59 Intake Total 1086 ml Output Total 600 ml 150 ml Balance 486 ml -150 ml Intake Oral 960 ml IV Total 126 ml Output Urine Total 600 ml 150 ml # Voids 4 Laboratory Tests Test 10/13/18 06:25 White Blood Count 4.4 K/UL (4.8-10.8) L Red Blood Count 3.18 M/UL (4.70-6.10) L Hemoglobin 8.4 G/DL (14.2-18.0) L Hematocrit 26.7 % (42.0-52.0) L Mean Corpuscular Volume 84 FL (80-99) Mean Corpuscular Hemoglobin 26.4 PG (27.0-31.0) L Mean Corpuscular Hemoglobin Concent 31.5 G/DL (32.0-36.0) L Red Cell Distribution Width 20.0 % (11.6-14.8) H Platelet Count 203 K/UL (150-450) Mean Platelet Volume 5.5 FL (6.5-10.1) L Neutrophils (%) (Auto) 66.2 % (45.0-75.0) Lymphocytes (%) (Auto) 17.7 % (20.0-45.0) L Monocytes (%) (Auto) 8.9 % (1.0-10.0) Eosinophils (%) (Auto) 6.6 % (0.0-3.0) H Basophils (%) (Auto) 0.6 % (0.0-2.0) Sodium Level 141 MMOL/L (136-145) Potassium Level 3.8 MMOL/L (3.5-5.1) Chloride Level 106 MMOL/L (98-107) Carbon Dioxide Level 30 MMOL/L (21-32) Anion Gap 5 mmol/L (5-15) Blood Urea Nitrogen 11 mg/dL (7-18) Creatinine 0.7 MG/DL (0.55-1.30) Estimat Glomerular Filtration Rate mL/min (>60) Glucose Level 93 MG/DL (74-106) Calcium Level 8.6 MG/DL (8.5-10.1) Current Medications Medications (Trade) Dose Ordered Sig/Alecia Route PRN Reason Start Time Stop Time Status Last Admin Dose Admin Acetaminophen (Tylenol) 500 mg Q4H PRN ORAL For Pain Level <=5 10/07/18 02:30 11/06/18 02:29 10/13/18 01:22 Ceftriaxone Sodium 1 gm/ Dextrose 55 ml @ 110 mls/hr Q24H IVPB 10/07/18 15:00 10/14/18 14:59 10/13/18 13:57 Clonidine HCl (Catapres Tab) 0.1 mg DAILY ORAL 10/07/18 09:00 11/06/18 08:59 10/13/18 08:50 Dextromethorphan/ Quinidine (Nuedexta Capsule) 1 cap DAILY ORAL 10/10/18 15:30 10/16/18 09:01 10/13/18 08:50 Dextromethorphan/ Quinidine (Nuedexta Capsule) 1 cap Q12HR ORAL 10/16/18 21:00 11/15/18 20:59 Divalproex Sodium (Depakote) 250 mg Q12HR ORAL 10/07/18 09:00 11/06/18 08:59 10/13/18 08:50 Docusate Sodium (Colace) 100 mg TWICE A DAY ORAL 10/07/18 09:00 11/06/18 08:59 10/11/18 17:20 Donepezil HCl (Aricept) 10 mg QHS ORAL 10/07/18 21:00 11/06/18 20:59 10/12/18 20:51 Duloxetine HCl (Cymbalta) 80 mg DAILY ORAL 10/07/18 09:00 11/06/18 08:59 10/13/18 08:51 Finasteride (Proscar) 5 mg DAILY ORAL 10/08/18 14:15 11/07/18 14:14 10/13/18 08:50 Levothyroxine Sodium (Synthroid) 150 mcg DAILY@0630 ORAL 10/07/18 06:30 11/06/18 06:29 10/13/18 05:20 Losartan Potassium (Cozaar) 50 mg DAILY ORAL 10/07/18 09:00 11/06/18 08:59 10/13/18 08:51 Oxybutynin Chloride (Ditropan) 5 mg Q8HR ORAL 10/11/18 18:26 11/10/18 18:25 10/13/18 13:57 Polyethylene Glycol (Miralax) 17 gm DAILY ORAL 10/07/18 09:00 11/06/18 08:59 10/11/18 08:49 Ramelteon (Rozerem) 8 mg QHS ORAL 10/08/18 21:00 11/07/18 20:59 10/12/18 20:50 Salmeterol Xinafoate/ Fluticasone (Advair 100/50 Diskus) 1 puffs TWICE A DAY INH 10/07/18 09:00 11/06/18 08:59 10/13/18 09:00 Sodium Chloride ([place] Nasal [place]) 2 spray DAILY PRN NASAL Dryness 10/07/18 02:00 11/06/18 01:59 Tamsulosin HCl (Flomax) 0.4 mg BEDTIME ORAL 10/07/18 21:00 11/06/18 20:59 10/12/18 20:51 Height (Feet): 6 Height (Inches): 0.00 Weight (Pounds): 164 General Appearance: no apparent distress, alert, non-toxic Head: normocephalic, atraumatic Eyes: bilateral anicteric ENT: normal voice Neck: full range of motion, no mass Respiratory: lungs clear, decreased breath sounds Cardiovascular: regular rate, rhythm Gastrointestinal: normal bowel sounds, non tender, soft, no mass, no organomegaly, non-distended Musculoskeletal: no calf tenderness Edema: no edema noted Generalized Neurologic: no new focality Alban Temple MD Oct 13, 2018 17:35
--- NOTE | 2018-10-13 19:42 | NUR ---
HAND-OFF: Report given to Chelsy Farfan.
[2018-10-13] MEDS: Tamsulosin 0.4mg cap ORAL SCH (21:22)
[2018-10-13] MEDS: Ramelteon 8mg tab (Approved for Delirium use only) ORAL SCH (21:22)
[2018-10-13] MEDS: Donepezil 10mg tab ORAL SCH (21:22)
[2018-10-14] MEDS: Acetaminophen 650mg/20.3ml ORAL PRN ×3 (01:32→21:20)
[2018-10-14 04:00] VITALS: BP 126/58
[2018-10-14] MEDS ORDERED: Iron Sucrose 100 MG in NS 55 ML IV ONE (06:00)
[2018-10-14] MEDS: Oxybutynin 5mg tab ORAL SCH ×3 (06:23→20:20)
[2018-10-14 06:44] LABS: HEMOGLOBIN 7.6 G/DL (14.2-18.0); MEAN CORPUSCULAR VOLUME 86 FL (80-99); PLATELET COUNT 196 K/UL (150-450); RED BLOOD COUNT 2.81 M/UL (4.70-6.10); RED CELL DISTRIBUTION WIDTH 21.5 % (11.6-14.8); WHITE BLOOD COUNT 4.1 K/UL (4.8-10.8)
--- NOTE | 2018-10-14 07:00 | NUR ---
HAND-OFF: Report given to LONNIE Nguyen.
--- NOTE | 2018-10-14 07:32 | NUR ---
NURSE NOTES: Patient awake, and eating his breakfast; on room air, no sign of distress and shortness of breath; IV Right-wrist flushes well; Katarina leaking, PM nurse Xi is calling MD Mendoza, I will follow up on that; bed at lowest position, side rails up x2, breaks engaged; call light within reach, will keep monitoring.
--- NOTE | 2018-10-14 07:42 | NUR ---
NURSE NOTES: Called Dr. Mendoza to inform him that the preciado catheter is leaking. Endorsed to Wendy to follow up with him.
[2018-10-14 08:00] VITALS: BP 108/57
[2018-10-14] MEDS: Nuedexta Capsule 20/10mg ORAL SCH (08:35)
[2018-10-14] MEDS: Docusate 100mg cap ORAL SCH ×2 (08:41→17:35)
[2018-10-14] MEDS: Miralax 17gm pkt ORAL SCH (08:41)
[2018-10-14] MEDS: Losartan 50mg tab ORAL SCH (08:42)
[2018-10-14] MEDS: Wixela 100/50 Inhaler - 60 dose INH SCH ×2 (10:16→19:22)
--- NOTE | 2018-10-14 11:24 | NUR ---
NURSE NOTES: I received order from MD Mendoza to LILIA Bray. Order carried out, patient tolerated well. Will keep monitoring.
--- NOTE | 2018-10-14 13:26 | Geriatric Progress Note ---
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 bladder retention, ? associated with clots. Will have bladder scan done to r/ o significant retention. May need additional urologic intervention. Hct lower but not requiring transfusion. Note increased MCV suggesting effect of Venofer supplementation. Need to resolve current sxs before return to SNF. Check labs. Discussed with: patient, hospital staff Subjective Interval Events Events reviewed. Catheter removed because of persistent leakage, patient c/o. Now on entering room patient c/o "spasm" in pelvic area. Staff reports otherwise no functional change. Hematuria noted in urinal. Moderate additional drop in Hct. Other labs OK. Constitutional: Denies: chills, sweats, fever Respiratory: Denies: orthopnea, shortness of breath Cardiovascular: Denies: chest pain, palpitations Gastrointestinal/Abdominal: Denies: diarrhea, nausea, vomiting Geriatric Geriatric Last 24 Hour Vital Signs Date Time Temp Pulse Resp B/P (MAP) Pulse Ox O2 Delivery O2 Flow Rate FiO2 10/14/18 10:23 Room Air 10/14/18 10:18 74 18 95 Room Air 21 10/14/18 10:18 74 18 95 Room Air 21 10/14/18 09:00 Room Air 10/14/18 08:00 98.1 67 19 108/57 (74) 94 10/14/18 04:00 98.6 69 22 126/58 (80) 93 10/14/18 02:02 97.9 10/13/18 23:56 97.9 66 22 149/70 (96) 96 10/13/18 21:00 Room Air 10/13/18 20:01 67 18 96 Room Air 21 10/13/18 20:00 98.0 69 18 113/52 (72) 95 10/13/18 20:00 67 18 96 Room Air 21 10/13/18 16:31 Room Air 10/13/18 16:00 Room Air 10/13/18 16:00 98.1 66 20 137/77 (97) 97 Intake and Output 10/13/18 10/14/18 19:00 07:00 Intake Total 960 ml 120 ml Output Total 250 ml Balance 960 ml -130 ml Intake Oral 960 ml 120 ml Output Urine Total 250 ml # Bowel Movements 3 Laboratory Tests Test 10/14/18 05:54 White Blood Count 4.1 K/UL (4.8-10.8) L Red Blood Count 2.81 M/UL (4.70-6.10) L Hemoglobin 7.6 G/DL (14.2-18.0) L Hematocrit 24.0 % (42.0-52.0) L Mean Corpuscular Volume 86 FL (80-99) Mean Corpuscular Hemoglobin 27.0 PG (27.0-31.0) Mean Corpuscular Hemoglobin Concent 31.6 G/DL (32.0-36.0) L Red Cell Distribution Width 21.5 % (11.6-14.8) H Platelet Count 196 K/UL (150-450) Mean Platelet Volume 5.7 FL (6.5-10.1) L Neutrophils (%) (Auto) % (45.0-75.0) Lymphocytes (%) (Auto) % (20.0-45.0) Monocytes (%) (Auto) % (1.0-10.0) Eosinophils (%) (Auto) % (0.0-3.0) Basophils (%) (Auto) % (0.0-2.0) Differential Total Cells Counted 100 Neutrophils % (Manual) 63 % (45-75) Lymphocytes % (Manual) 24 % (20-45) Monocytes % (Manual) 8 % (1-10) Eosinophils % (Manual) 5 % (0-3) H Basophils % (Manual) 0 % (0-2) Band Neutrophils 0 % (0-8) Platelet Estimate Adequate Platelet Morphology Normal Polychromasia 1+ Hypochromasia 1+ Anisocytosis 2+ Current Medications Medications (Trade) Dose Ordered Sig/Alecia Route PRN Reason Start Time Stop Time Status Last Admin Dose Admin Acetaminophen (Tylenol) 500 mg Q4H PRN ORAL For Pain Level <=5 10/07/18 02:30 11/06/18 02:29 10/14/18 01:32 Ceftriaxone Sodium 1 gm/ Dextrose 55 ml @ 110 mls/hr Q24H IVPB 10/07/18 15:00 10/14/18 14:59 10/13/18 13:57 Clonidine HCl (Catapres Tab) 0.1 mg DAILY ORAL 10/07/18 09:00 11/06/18 08:59 10/13/18 08:50 Dextromethorphan/ Quinidine (Nuedexta Capsule) 1 cap DAILY ORAL 10/10/18 15:30 10/16/18 09:01 10/14/18 08:35 Dextromethorphan/ Quinidine (Nuedexta Capsule) 1 cap Q12HR ORAL 10/16/18 21:00 11/15/18 20:59 Divalproex Sodium (Depakote) 250 mg Q12HR ORAL 10/07/18 09:00 11/06/18 08:59 10/14/18 08:37 Docusate Sodium (Colace) 100 mg TWICE A DAY ORAL 10/07/18 09:00 11/06/18 08:59 10/11/18 17:20 Donepezil HCl (Aricept) 10 mg QHS ORAL 10/07/18 21:00 11/06/18 20:59 10/13/18 21:22 Duloxetine HCl (Cymbalta) 80 mg DAILY ORAL 10/07/18 09:00 11/06/18 08:59 10/14/18 08:36 Finasteride (Proscar) 5 mg DAILY ORAL 10/08/18 14:15 11/07/18 14:14 10/14/18 08:37 Levothyroxine Sodium (Synthroid) 150 mcg DAILY@0630 ORAL 10/07/18 06:30 11/06/18 06:29 10/14/18 06:23 Losartan Potassium (Cozaar) 50 mg DAILY ORAL 10/07/18 09:00 11/06/18 08:59 10/13/18 08:51 Oxybutynin Chloride (Ditropan) 5 mg Q8HR ORAL 10/11/18 18:26 11/10/18 18:25 10/14/18 06:23 Polyethylene Glycol (Miralax) 17 gm DAILY ORAL 10/07/18 09:00 11/06/18 08:59 10/11/18 08:49 Ramelteon (Rozerem) 8 mg QHS ORAL 10/08/18 21:00 11/07/18 20:59 10/13/18 21:22 Salmeterol Xinafoate/ Fluticasone (Advair 100/50 Diskus) 1 puffs TWICE A DAY INH 10/07/18 09:00 11/06/18 08:59 10/14/18 10:16 Sodium Chloride ([place] Nasal [place]) 2 spray DAILY PRN NASAL Dryness 10/07/18 02:00 11/06/18 01:59 Tamsulosin HCl (Flomax) 0.4 mg BEDTIME ORAL 10/07/18 21:00 11/06/18 20:59 10/13/18 21:22 Height (Feet): 6 Height (Inches): 0.00 Weight (Pounds): 164 General Appearance: alert, non-toxic Head: normocephalic, atraumatic Eyes: bilateral anicteric ENT: normal voice Neck: full range of motion, no mass Respiratory: lungs clear, decreased breath sounds Cardiovascular: regular rate, rhythm Gastrointestinal: normal bowel sounds, soft, tenderness - or guarding with mild distention in suprapubic area Musculoskeletal: no calf tenderness Neurologic: no new focality Alban Temple MD Oct 14, 2018 13:26
--- NOTE | 2018-10-14 13:48 | NUR ---
NURSE NOTES: MD Temple order a bladder scan for this patient and I call MD Temple office and talk to Ginger with the result, 197cc
--- NOTE | 2018-10-14 14:48 | NUR ---
NURSE NOTES: MD Gordon called while I was my lunch break and left a message for me to call back after returning to floor. I tried to call and I left a voice message and call back number.
--- NOTE | 2018-10-14 15:30 | NUR ---
NURSE NOTES: Patient complains of pain, Tylenol 500mg give, will keep monitoring.
[2018-10-14 16:00] VITALS: BP 145/60
--- NOTE | 2018-10-14 16:16 | Anethesia Preoperative Eval ---
Anesthesia Pre-op PMH/ROS General Date of Evaluation: Oct 14, 2018 Time of Evaluation: 16:03 Anesthesiologist: Hanh ASA Score: ASA 4 Mallampati Score Class I : Soft palate, uvula, fauces, pillars visible Class II: Soft palate, uvula, fauces visible Class III: Soft palate, base of uvula visible Class IV: Only hard plate visible Mallampati Classification: Class III Surgeon: Reji Diagnosis: Hematuria Surgical Procedure: Cystoscopy, Possible TURB Anesthesia History: none Social History: smoking Family History: no anesthesia problems Allergies: Coded Allergies: No Known Allergies (Unverified , 10/06/18) Medications: see eMAR Patient NPO?: Yes Past Medical History Cardiovascular: Reports: HTN Pulmonary: Reports: COPD Gastrointestinal/Genitourinary: Reports: other - BPH, Prostate CA, Hematuria Neurologic/Psychiatric: Reports: dementia Endocrine: Reports: hypothyroidism Hematology/Immune: Reports: anemia Musculoskeletal/Integumentary: Reports: other - Fracture 4th Vertebrae, Weakness Anesthesia Pre-op Phys. Exam Physician Exam Last Vital Signs Date Time Temp Pulse Resp B/P (MAP) Pulse Ox O2 Delivery O2 Flow Rate FiO2 10/14/18 15:56 98.1 10/14/18 10:23 Room Air 10/14/18 10:18 74 18 95 21 10/14/18 08:00 108/57 (74) 10/08/18 14:20 6 Constitutional: NAD Neurologic: CN 2-12 intact Cardiovascular: RRR Respiratory: CTA Gastrointestinal: S/NT/ND Airway Exam Mallampati Score: Class III MO: limited ROM: limited Teeth: missing Anesthesia Pre-op A/P Labs Hematology Test 10/14/18 05:54 White Blood Count 4.1 K/UL (4.8-10.8) L Red Blood Count 2.81 M/UL (4.70-6.10) L Hemoglobin 7.6 G/DL (14.2-18.0) L Hematocrit 24.0 % (42.0-52.0) L Mean Corpuscular Volume 86 FL (80-99) Mean Corpuscular Hemoglobin 27.0 PG (27.0-31.0) Mean Corpuscular Hemoglobin Concent 31.6 G/DL (32.0-36.0) L Red Cell Distribution Width 21.5 % (11.6-14.8) H Platelet Count 196 K/UL (150-450) Mean Platelet Volume 5.7 FL (6.5-10.1) L Neutrophils (%) (Auto) % (45.0-75.0) Lymphocytes (%) (Auto) % (20.0-45.0) Monocytes (%) (Auto) % (1.0-10.0) Eosinophils (%) (Auto) % (0.0-3.0) Basophils (%) (Auto) % (0.0-2.0) Differential Total Cells Counted 100 Neutrophils % (Manual) 63 % (45-75) Lymphocytes % (Manual) 24 % (20-45) Monocytes % (Manual) 8 % (1-10) Eosinophils % (Manual) 5 % (0-3) H Basophils % (Manual) 0 % (0-2) Band Neutrophils 0 % (0-8) Platelet Estimate Adequate Platelet Morphology Normal Polychromasia 1+ Hypochromasia 1+ Anisocytosis 2+ Risk Assessment & Plan Assessment: ASA 4 Plan: GA Status Change Before Surgery: No Pre-Antibiotics Drug: Dyllan Westbrook MD Oct 14, 2018 16:16
--- NOTE | 2018-10-14 16:16 | NUR ---
NURSE NOTES: MD Mendoza planned to do Cystoscopy with possible Fulguration and possible trans-Urethral Resectio, of bladder Tumor. Got consent over the phone from Ender Gipson and Charge nurse, Kiley witness. Consent on file.
[2018-10-14] MEDS: cefTRIAXone 1gm/D5W 55ml IVPB SCH ×2 (17:38)
--- NOTE | 2018-10-14 17:58 | NUR ---
NURSE NOTES: Patient asked for ice bag, patient hold the ice bag on perineal area. Will keep monitoring.
--- NOTE | 2018-10-14 18:24 | NUR ---
NURSE NOTES: I hanged Rocephin IVPB, patient stated its leaking, when I flush it, it works. Patient couldn't let me try another one. Patient stated the founder and chief executive officer to try him. Charge nurse is aware.
--- NOTE | 2018-10-14 19:00 | NUR ---
NURSE NOTES: Received a report from LONNIE Nguyen. Pt is in stable condition. AAOX3. On room air. IV site is patent and intact. Bed in lowest position. Bed alarm is on. Call light within reach. Will continue to monitor.
--- NOTE | 2018-10-14 19:34 | NUR ---
HAND-OFF: Report given to LONNIE Valentino.
[2018-10-14 20:00] VITALS: BP 149/78
[2018-10-14] MEDS: Tamsulosin 0.4mg cap ORAL SCH (20:20)
[2018-10-14] MEDS: Ramelteon 8mg tab (Approved for Delirium use only) ORAL SCH (20:20)
[2018-10-14] MEDS: Donepezil 10mg tab ORAL SCH (20:20)
[2018-10-15] VITALS (15 sets, daily range): BP systolic 128–179; BP diastolic 60–91
[2018-10-15] MEDS: Oxybutynin 5mg tab ORAL SCH ×3 (05:33→21:18)
--- NOTE | 2018-10-15 07:15 | NUR ---
HAND-OFF: Report given to [place].
--- NOTE | 2018-10-15 07:30 | NUR ---
NURSE NOTES: Received pt from LONNIE GRANT. Pt is confused and orient x3. pt is in RA, No SOB or acute respiratory distress noted. pt has intact iv access R Wrist 22G SL. pt is NPO due to cystoscopy. all needs attended, bed is locked and is in the lowest position. call light within easy reach. will continue to monitor.
[2018-10-15 07:56] LABS: BASOPHILS % (AUTO) 1.4 % (0.0-2.0); EOSINOPHILS % (AUTO) 5.2 % (0.0-3.0); HEMATOCRIT 25.4 % (42.0-52.0); HEMOGLOBIN 8.2 G/DL (14.2-18.0); LYMPHOCYTES % (AUTO) 16.4 % (20.0-45.0); MEAN CORPUSCULAR VOLUME 85 FL (80-99); MONOCYTES % (AUTO) 11.8 % (1.0-10.0); NEUTROPHILS % (AUTO) 65.3 % (45.0-75.0); PLATELET COUNT 199 K/UL (150-450); RED BLOOD COUNT 2.97 M/UL (4.70-6.10); RED CELL DISTRIBUTION WIDTH 20.8 % (11.6-14.8); WHITE BLOOD COUNT 4.4 K/UL (4.8-10.8)
[2018-10-15] MEDS: Wixela 100/50 Inhaler - 60 dose INH SCH ×2 (08:22→20:04)
[2018-10-15] MEDS: Miralax 17gm pkt ORAL SCH (09:00)
[2018-10-15] MEDS: Docusate 100mg cap ORAL SCH ×2 (09:00→17:00)
[2018-10-15] MEDS: Nuedexta Capsule 20/10mg ORAL SCH ×2 (09:00→21:17)
[2018-10-15] MEDS: Losartan 50mg tab ORAL SCH (09:00)
[2018-10-15] MEDS: Acetaminophen 650mg/20.3ml ORAL PRN ×2 (09:53→21:23)
--- NOTE | 2018-10-15 10:15 | NUR ---
NURSE NOTES: Pt complained pain 10/10 and ASKED FOR MORPHIN, called DR HOU but he refused, pt is aware. will continue to monitor.
--- NOTE | 2018-10-15 10:49 | NUR ---
NURSE NOTES: pt is stable, and has rectal bleeding, Dr WEBB notified, left 4e to OR.
[2018-10-15] MEDS ORDERED: Lidocaine 1% MPF 10mg/ml 5ml ONE (11:31)
[2018-10-15] MEDS ORDERED: fentaNYL 100 mcg/2 mL IV ONE (11:31)
[2018-10-15] MEDS ORDERED: Propofol 200mg/20ml IV ONE (11:31)
[2018-10-15] MEDS ORDERED: cefOXitin 1gm Inj ONE (11:39)
[2018-10-15] MEDS ORDERED: Zemuron 50mg/5ml Inj IV ONE (11:40)
--- NOTE | 2018-10-15 11:49 | Pre-Procedure Note/Attestation ---
Pre-Procedure Note/Attestation Complete Prior to Procedure Planned Procedure: not applicable Procedure Narrative: cystoscopy, fulguration of bleeding, possible transurethral resection of bladder tumor Indications for Procedure Pre-Operative Diagnosis: Gross hematuria. Attestation I attest that I discussed the nature of the procedure; its benefits; risks and complications; and alternatives (and the risks and benefits of such alternatives ), prior to the procedure, with the patient (or the patient's legal player services representative). I attest that, if there was a reasonable possibility of needing a blood transfusion, the patient (or the patient's legal player services representative) was given the [facility] standardized written summary, pursuant to the Alexy Ever Blood Safety Act ([place] Health and Safety Code # 1645, as amended). I attest that I re-evaluated the patient just prior to the surgery and that there has been no change in the patient's H&P, except as documented below: Kulwant Mendoza M.D. Oct 15, 2018 11:49
[2018-10-15] MEDS ORDERED: NS Irrig 1000ml ONE (12:00)
[2018-10-15] MEDS ORDERED: Sterile Water For Irrig 2000ml IRRIG ONE (12:00)
[2018-10-15] MEDS ORDERED: DiphenhydrAMINE 50mg/ml Inj IVP PRN (13:00)
[2018-10-15] MEDS ORDERED: Hydromorphone 0.5mg/0.5ml inj IVP PRN (13:00)
--- NOTE | 2018-10-15 13:02 | Operative Note - PDOC ---
Operative Note Operative Note Date of Operation/Procedure: Oct 15, 2018 Pre-op Diagnosis: Gross hematuria. Procedure: cystoscopy with fulguration of bleeding Post-op Diagnosis: same as pre-op Operative Findings: consistent w/pre-op dx studies Surgeon: Reji Anesthesia: general Specimen: none Complications: none Condition: stable Estimated Blood Loss: none Drains: none Implant(s) used?: No Kulwant Mendoza M.D. Oct 15, 2018 13:02
--- NOTE | 2018-10-15 13:24 | Immediate Post-Op Evaluation ---
Immediate Post-Op Evalulation Immediate Post-Op Evalulation Procedure: Cysto evacuation of clotts, TURP Date of Evaluation: Oct 15, 2018 Time of Evaluation: 13:23 IV Fluids: 300 Blood Products: none Estimated Blood Loss: n/a Urinary Output: n/a Blood Pressure Systolic: 156 Blood Pressure Diastolic: 76 Pulse Rate: 68 Respiratory Rate: 20 O2 Sat by Pulse Oximetry: 98 Temperature (Fahrenheit): 97.6 Pain Score (1-10): 1 Nausea: No Vomiting: No Complications none Patient Status: reacts, patent, none Hydration Status: adequate Scott Butler MD Oct 15, 2018 13:24
--- NOTE | 2018-10-15 13:48 | 48 Hour Post Anesthesia Eval ---
Post Anesthesia Evaluation Procedure: Cysto evacuation of clotts, TURP Date of Evaluation: Oct 15, 2018 Time of Evaluation: 15:10 Blood Pressure Systolic: 148 0: 76 Pulse Rate: 68 Respiratory Rate: 20 Temperature (Fahrenheit): 97.5 O2 Sat by Pulse Oximetry: 98 Airway: patent Nausea: No Vomiting: No Pain Intensity: 2 Hydration Status: adequate Cardiopulmonary Status: stable Mental Status/LOC: patient returned to baseline Follow-up Care/Observations: n/a Post-Anesthesia Complications: none Follow-up care needed: N/A Scott Butler MD Oct 15, 2018 13:48
--- NOTE | 2018-10-15 14:34 | NUR ---
P.T Note: late entry 1100 P.T services deferred due to patient going for procedure. Will follow up tomorrow post procedure.
--- NOTE | 2018-10-15 16:30 | NUR ---
NURSE NOTES: Received pt from AGRICULTURAL AND FORESTRY SUPERVISOR JIMMY DEL VALLE at 1445. pt is confused and orient x3. pt has NC 3LMP. Pt has intact iv access R EJ 20G is running well. pt has Bray cath in place is irrigating well. the irrigation is clear. pt consumed 75% of lunch and tolerate well. no complain of pain. SCD is on. all needs attended, bed is locked and is in the lowest position, call light within easy reach. will continue to monitor.
[2018-10-15] MEDS: cefTRIAXone 1gm/D5W 55ml IVPB SCH ×2 (16:59)
--- NOTE | 2018-10-15 19:06 | Geriatric Progress Note ---
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 Will review with Dr. Mendoza re findings, period to leave Bray in. Recheck labs. Hopefully stabilizes and can be d/c back to SNF. Continue other meds. Discussed with: patient, hospital staff Subjective Interval Events Patient returned from OR after additional fulguration with clear urine! Details of procedure pending Dr. Mendoza's note. Patient also reports feeling better. Labs OK. Constitutional: Denies: chills, pain, sweats, fever Respiratory: Denies: cough, shortness of breath Cardiovascular: Denies: chest pain, palpitations Gastrointestinal/Abdominal: Denies: abdominal pain, diarrhea, nausea, vomiting Genitourinary: Denies: dysuria Geriatric Geriatric Last 24 Hour Vital Signs Date Time Temp Pulse Resp B/P (MAP) Pulse Ox O2 Delivery O2 Flow Rate FiO2 10/15/18 16:00 97.9 77 20 159/68 (98) 93 10/15/18 15:00 97.5 75 20 155/60 (91) 96 10/15/18 14:50 97.4 10/15/18 14:40 97.2 65 17 157/70 100 Nasal Cannula 3 10/15/18 14:25 65 16 156/75 100 Nasal Cannula 3 10/15/18 14:15 67 19 157/74 98 Nasal Cannula 3 10/15/18 14:00 65 16 179/82 100 Nasal Cannula 3 10/15/18 13:55 70 18 174/81 100 Simple Mask 6 10/15/18 13:48 68 20 98 10/15/18 13:40 65 19 168/70 100 Simple Mask 6 10/15/18 13:30 88 26 165/70 100 Simple Mask 6 10/15/18 13:25 65 24 169/71 100 Simple Mask 6 10/15/18 13:24 68 20 98 10/15/18 13:19 97.1 66 22 172/68 100 Simple Mask 6 10/15/18 10:23 97.2 10/15/18 09:00 147/83 10/15/18 09:00 Room Air 10/15/18 08:18 70 20 95 Room Air 21 10/15/18 08:16 65 20 95 Room Air 21 10/15/18 08:00 97.2 75 20 147/83 (104) 95 10/15/18 04:09 97.6 61 20 128/77 (94) 95 10/15/18 00:02 97.9 78 18 145/91 (109) 94 10/14/18 21:00 Room Air 10/14/18 20:00 97.9 74 18 149/78 (101) 95 10/14/18 19:24 76 16 97 Room Air 21 10/14/18 19:22 80 16 97 Room Air 21 Intake and Output 10/14/18 10/15/18 19:00 07:00 Intake Total 790 ml Balance 790 ml Intake Oral 680 ml IV Total 110 ml # Voids 5 4 # Bowel Movements 6 1 Laboratory Tests Test 10/15/18 07:15 White Blood Count 4.4 K/UL (4.8-10.8) L Red Blood Count 2.97 M/UL (4.70-6.10) L Hemoglobin 8.2 G/DL (14.2-18.0) L Hematocrit 25.4 % (42.0-52.0) L Mean Corpuscular Volume 85 FL (80-99) Mean Corpuscular Hemoglobin 27.6 PG (27.0-31.0) Mean Corpuscular Hemoglobin Concent 32.3 G/DL (32.0-36.0) Red Cell Distribution Width 20.8 % (11.6-14.8) H Platelet Count 199 K/UL (150-450) Mean Platelet Volume 5.5 FL (6.5-10.1) L Neutrophils (%) (Auto) 65.3 % (45.0-75.0) Lymphocytes (%) (Auto) 16.4 % (20.0-45.0) L Monocytes (%) (Auto) 11.8 % (1.0-10.0) H Eosinophils (%) (Auto) 5.2 % (0.0-3.0) H Basophils (%) (Auto) 1.4 % (0.0-2.0) Current Medications Medications (Trade) Dose Ordered Sig/Alecia Route PRN Reason Start Time Stop Time Status Last Admin Dose Admin Acetaminophen (Tylenol) 500 mg Q4H PRN ORAL For Pain Level <=5 10/07/18 02:30 11/06/18 02:29 10/15/18 09:53 Ceftriaxone Sodium 1 gm/ Dextrose 55 ml @ 110 mls/hr Q24H IVPB 10/14/18 17:00 10/16/18 17:29 10/15/18 16:59 Clonidine HCl (Catapres Tab) 0.1 mg DAILY ORAL 10/07/18 09:00 11/06/18 08:59 10/13/18 08:50 Dextromethorphan/ Quinidine (Nuedexta Capsule) 1 cap DAILY ORAL 10/10/18 15:30 10/16/18 09:01 10/14/18 08:35 Dextromethorphan/ Quinidine (Nuedexta Capsule) 1 cap Q12HR ORAL 10/15/18 21:00 11/14/18 20:59 Diphenhydramine HCl (Benadryl) 25 mg Q15M PRN IVP Itching 10/15/18 13:00 10/15/18 20:00 Divalproex Sodium (Depakote) 250 mg Q12HR ORAL 10/07/18 09:00 11/06/18 08:59 10/14/18 20:20 Docusate Sodium (Colace) 100 mg TWICE A DAY ORAL 10/07/18 09:00 11/06/18 08:59 10/15/18 17:00 Donepezil HCl (Aricept) 10 mg QHS ORAL 10/07/18 21:00 11/06/18 20:59 10/14/18 20:20 Duloxetine HCl (Cymbalta) 80 mg DAILY ORAL 10/07/18 09:00 11/06/18 08:59 10/14/18 08:36 Finasteride (Proscar) 5 mg DAILY ORAL 10/08/18 14:15 11/07/18 14:14 10/14/18 08:37 Hydromorphone HCl (Dilaudid) 0.5 mg Q15M PRN IVP Severe Pain (Pain Scale 7-10) 10/15/18 13:00 10/15/18 20:00 10/15/18 14:03 Levothyroxine Sodium (Synthroid) 150 mcg DAILY@0630 ORAL 10/07/18 06:30 11/06/18 06:29 10/14/18 06:23 Losartan Potassium (Cozaar) 50 mg DAILY ORAL 10/07/18 09:00 11/06/18 08:59 10/13/18 08:51 Ondansetron HCl (Zofran) 4 mg Q1H PRN IVP Nausea & Vomiting 10/15/18 13:00 10/15/18 20:00 Oxybutynin Chloride (Ditropan) 5 mg Q8HR ORAL 10/11/18 18:26 11/10/18 18:25 10/14/18 20:20 Polyethylene Glycol (Miralax) 17 gm DAILY ORAL 10/07/18 09:00 11/06/18 08:59 10/11/18 08:49 Ramelteon (Rozerem) 8 mg QHS ORAL 10/08/18 21:00 11/07/18 20:59 10/14/18 20:20 Salmeterol Xinafoate/ Fluticasone (Advair 100/50 Diskus) 1 puffs TWICE A DAY INH 10/07/18 09:00 11/06/18 08:59 10/15/18 08:22 Sodium Chloride ([place] Nasal [place]) 2 spray DAILY PRN NASAL Dryness 10/07/18 02:00 11/06/18 01:59 Tamsulosin HCl (Flomax) 0.4 mg BEDTIME ORAL 10/07/18 21:00 11/06/18 20:59 10/14/18 20:20 Height (Feet): 6 Height (Inches): 0.00 Weight (Pounds): 164 General Appearance: no apparent distress, alert, non-toxic Head: normocephalic, atraumatic Eyes: bilateral anicteric ENT: normal voice Neck: full range of motion, no mass Respiratory: lungs clear, decreased breath sounds Cardiovascular: regular rate, rhythm Gastrointestinal: normal bowel sounds, non tender - no suprapubic tenderness., soft, no mass, no organomegaly, non-distended Musculoskeletal: no calf tenderness Edema: no edema noted Generalized Neurologic: no new focality Alban Temple MD Oct 15, 2018 19:06
--- NOTE | 2018-10-15 19:13 | NUR ---
HAND-OFF: Report given to RN AJ.ENDORSED TO F/U FOR IRRIGATION.
--- NOTE | 2018-10-15 19:45 | NUR ---
NURSE NOTES: Pt is in bed, awake and alert. No acute distress noted. Bray cath draining, yellow urine. Continuos bladder irrigation in place. Bed locked low in position,side rails up and call light within reach.Pt will be monitored.
[2018-10-15] MEDS: Ramelteon 8mg tab (Approved for Delirium use only) ORAL SCH (21:17)
[2018-10-15] MEDS: Donepezil 10mg tab ORAL SCH (21:17)
[2018-10-15] MEDS: Tamsulosin 0.4mg cap ORAL SCH (21:17)
--- NOTE | 2018-10-15 21:30 | Operative Note - Dictated ---
DATE OF OPERATION: 10/15/2018 PREOPERATIVE DIAGNOSIS: Persistent gross hematuria. POSTOPERATIVE DIAGNOSIS: Persistent gross hematuria with evidence of bleeding from the bladder neck. PROCEDURE PERFORMED: Cysto-fulguration of bleeding. SURGEON: Kulwant Mendoza M.D. ANESTHESIA: General/LMA. ESTIMATED BLOOD LOSS: Minimal. IV FLUIDS: IV crystalloid only. DRAINS, TUBES, AND CATHETERS: A 20-[place] 3-way catheter to continual bladder irrigation. SPECIMENS: None. COMPLICATIONS: None. OPERATIVE INDICATION: The patient is an 83-year-old gentleman with history of prostate cancer and persistent gross hematuria for 1-month duration. I previously took him for cystoscopy and fulguration of bleeding, but he persisted in bleeding for the next several days. As such, his son was counseled and elected for him to undergo the same procedure again. He was scheduled for this procedure at [facility] on October 15, 2018. OPERATIVE NOTE IN DETAIL: The patient was brought to the operating room and placed on the table in supine position. General anesthesia was then induced. Once the patient had his LMA in place, he was repositioned in dorsal lithotomy, draped and prepped in the usual sterile fashion. Using a 24-Bur[place]ian resectoscope sheath with a Faiza obturator, the urethra was calibrated and the sheath was passed into the bladder. The Faiza was then removed and camera lens and working elements were introduced through the sheath and the bladder was filled. The bladder was entered and inspected. Again, there was no evidence of any tumors, stones, or gross abnormalities within the bladder. There were some enlarged surface blood vessels, but no active bleeding except at the bladder neck toward the dome where there was some venous ooze. This was cauterized using a cautery loop and other engorged surface vessels were also cauterized. The prostate was entered and inspected. There was no significant bleeding like last time, but whatever small spots of bleeding were seen were cauterized. The clots were evacuated through the scope and washed out with an Ellik evacuator. At the conclusion of the procedure, the bladder was not bleeding and the prostate was not bleeding off of irrigation. The bladder was left full and the scope was removed. A 20-[place] 3-way catheter was inserted, inflated, and left to gravity drainage and returned clear irrigant fluid. I was present and scrubbed for the entire duration of this case. All needle, sponge, and instrument counts were reported correct. Kulwant Mendoza M.D. DR: Kristine JOB#: [id number] CC:
[2018-10-16] VITALS: BP 153/79
[2018-10-16] MEDS: Acetaminophen 650mg/20.3ml ORAL PRN ×2 (01:25→20:42)
--- NOTE | 2018-10-16 01:36 | NUR ---
NURSE NOTES: Pt is in bed, awake. No acute distress noted. Continuos bladder irrigation in progress. Bray cath draining yellow urine.
[2018-10-16 04:00] VITALS: BP 137/48
--- NOTE | 2018-10-16 06:00 | NUR ---
NURSE NOTES: Pt wants the logistics specialist to come back later for lab draw.
[2018-10-16] MEDS: Oxybutynin 5mg tab ORAL SCH ×3 (06:49→20:43)
--- NOTE | 2018-10-16 07:30 | NUR ---
HAND-OFF: Report given to LONNIE Early.
--- NOTE | 2018-10-16 07:30 | NUR ---
NURSE NOTES: Received pt from RN AJ. Pt is alert and orient x4. pt is in RA, No SOB or acute respiratory distress noted. pt has intact iv access L EJ 20G SL. Pt has Bray cath in place is irrigating well. Pt is eating breakfast by himself. all needs attended, bed is locked and is in the lowest position. call light within easy reach. will continue to monitor.
[2018-10-16 08:00] VITALS: BP 141/52
[2018-10-16] MEDS: Miralax 17gm pkt ORAL SCH (09:00)
[2018-10-16] MEDS: Docusate 100mg cap ORAL SCH ×2 (09:00→18:00)
[2018-10-16] MEDS: Losartan 50mg tab ORAL SCH (09:13)
[2018-10-16] MEDS: Nuedexta Capsule 20/10mg ORAL SCH ×3 (09:14→20:43)
[2018-10-16] MEDS: Wixela 100/50 Inhaler - 60 dose INH SCH ×2 (09:30→19:24)
[2018-10-16 10:10] LABS: BASOPHILS % (AUTO) 1.6 % (0.0-2.0); EOSINOPHILS % (AUTO) 3.7 % (0.0-3.0); HEMATOCRIT 28.4 % (42.0-52.0); HEMOGLOBIN 8.7 G/DL (14.2-18.0); LYMPHOCYTES % (AUTO) 13.7 % (20.0-45.0); MEAN CORPUSCULAR VOLUME 88 FL (80-99); MONOCYTES % (AUTO) 11.4 % (1.0-10.0); NEUTROPHILS % (AUTO) 69.6 % (45.0-75.0); PLATELET COUNT 265 K/UL (150-450); RED BLOOD COUNT 3.23 M/UL (4.70-6.10); RED CELL DISTRIBUTION WIDTH 22.2 % (11.6-14.8); WHITE BLOOD COUNT 5.3 K/UL (4.8-10.8)
[2018-10-16 10:40] LABS: ALANINE AMINOTRANSFERASE 26 U/L (12-78); ALBUMIN 2.8 G/DL (3.4-5.0); ALBUMIN/GLOBULIN RATIO 0.8 (1.0-2.7); ALKALINE PHOSPHATASE 89 U/L (46-116); ANION GAP 7 mmol/L (5-15); ASPARTATE AMINO TRANSFERASE 24 U/L (15-37); BILIRUBIN,TOTAL 0.4 MG/DL (0.2-1.0); BLOOD UREA NITROGEN 10 mg/dL (7-18); CALCIUM 7.9 MG/DL (8.5-10.1); CARBON DIOXIDE 30 MMOL/L (21-32); CHLORIDE 103 MMOL/L (98-107); CREATININE 0.8 MG/DL (0.55-1.30); POTASSIUM 3.6 MMOL/L (3.5-5.1); SODIUM 140 MMOL/L (136-145)
--- NOTE | 2018-10-16 11:06 | NUR ---
NURSE NOTES: Dr POWERS called and he is aware the urine is clear ordered to hold bladder irrigation for 2 hours and if urine is still clear D/C irrigation. noted and carried out. will continue to monitor.
[2018-10-16 12:00] VITALS: BP 131/73
--- NOTE | 2018-10-16 13:03 | NUR ---
NURSE NOTES: urine is clear and bladder irrigation cancelled as order. will continue to monitor.
[2018-10-16 16:00] VITALS: BP 130/71
[2018-10-16] MEDS ORDERED: NS Irrig 4000ml IRRIG ONE (16:37)
[2018-10-16] MEDS ORDERED: NS 275ml ONE (16:37)
[2018-10-16] MEDS: cefTRIAXone 1gm/D5W 55ml IVPB SCH ×2 (17:08)
--- NOTE | 2018-10-16 19:30 | NUR ---
HAND-OFF: Report given to RN AJ.
--- NOTE | 2018-10-16 19:45 | NUR ---
NURSE NOTES: Pt is in bed, awake and alert. No acute distress noted. Bray cath draining yellow urine. Bed locked low in position, side rails up and call light with in reach. Bed alarm on. Pt will be monitored.
[2018-10-16 20:00] VITALS: BP 126/65
[2018-10-16] MEDS: Donepezil 10mg tab ORAL SCH (20:43)
[2018-10-16] MEDS: Tamsulosin 0.4mg cap ORAL SCH (20:43)
[2018-10-16] MEDS: Ramelteon 8mg tab (Approved for Delirium use only) ORAL SCH (20:43)
[2018-10-16] MEDS ORDERED: Nuedexta Capsule 20/10mg ORAL SCH (21:00)
--- NOTE | 2018-10-16 21:33 | Geriatric Progress Note ---
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 Hopefully, if no bleeding, will be able to return to SNF on Thursday. Clinically responding well to present regimen. Discussed with: patient, hospital staff Subjective Interval Events Patient calm, reports feeling OK. Urine remains clear, continuous irrigation discontinued by Dr. Mendoza. Ceftriaxone also discontinued. Episode of diarrhea reported, but apparently not persistent. Labs continue to improve with increased Hct. Constitutional: Denies: chills, pain, sweats, fever Respiratory: Denies: shortness of breath Cardiovascular: Denies: chest pain, palpitations Gastrointestinal/Abdominal: Denies: nausea, vomiting Genitourinary: Denies: dysuria Geriatric Geriatric Last 24 Hour Vital Signs Date Time Temp Pulse Resp B/P (MAP) Pulse Ox O2 Delivery O2 Flow Rate FiO2 10/16/18 20:00 97.2 68 19 126/65 (85) 95 10/16/18 19:26 74 18 93 Room Air 21 10/16/18 19:24 74 18 93 Room Air 21 10/16/18 16:00 98.0 66 18 130/71 (90) 97 10/16/18 12:00 97.9 63 16 131/73 (92) 96 10/16/18 09:31 67 18 99 Room Air 21 10/16/18 09:30 65 18 98 Room Air 21 10/16/18 09:13 141/52 10/16/18 09:13 141/52 10/16/18 09:00 Room Air 10/16/18 08:00 97.9 70 20 141/52 (81) 97 10/16/18 04:00 98.5 68 19 137/48 (77) 95 10/16/18 00:00 99.5 73 19 153/79 (103) 94 Intake and Output 10/15/18 10/16/18 19:00 07:00 Intake Total 3655 ml 500 ml Output Total 3225 ml 1800 ml Balance 430 ml -1300 ml Intake Oral 500 ml IV Total 455 ml Other 3200 ml Output Urine Total 3125 ml 1800 ml Estimated Blood Loss 100 ml # Voids 1 # Bowel Movements 1 1 Laboratory Tests Test 10/16/18 09:50 White Blood Count 5.3 K/UL (4.8-10.8) Red Blood Count 3.23 M/UL (4.70-6.10) L Hemoglobin 8.7 G/DL (14.2-18.0) L Hematocrit 28.4 % (42.0-52.0) L Mean Corpuscular Volume 88 FL (80-99) Mean Corpuscular Hemoglobin 26.8 PG (27.0-31.0) L Mean Corpuscular Hemoglobin Concent 30.5 G/DL (32.0-36.0) L Red Cell Distribution Width 22.2 % (11.6-14.8) H Platelet Count 265 K/UL (150-450) Mean Platelet Volume 5.7 FL (6.5-10.1) L Neutrophils (%) (Auto) 69.6 % (45.0-75.0) Lymphocytes (%) (Auto) 13.7 % (20.0-45.0) L Monocytes (%) (Auto) 11.4 % (1.0-10.0) H Eosinophils (%) (Auto) 3.7 % (0.0-3.0) H Basophils (%) (Auto) 1.6 % (0.0-2.0) Sodium Level 140 MMOL/L (136-145) Potassium Level 3.6 MMOL/L (3.5-5.1) Chloride Level 103 MMOL/L (98-107) Carbon Dioxide Level 30 MMOL/L (21-32) Anion Gap 7 mmol/L (5-15) Blood Urea Nitrogen 10 mg/dL (7-18) Creatinine 0.8 MG/DL (0.55-1.30) Estimat Glomerular Filtration Rate mL/min (>60) Glucose Level 71 MG/DL (74-106) L Calcium Level 7.9 MG/DL (8.5-10.1) L Magnesium Level 2.0 MG/DL (1.8-2.4) Total Bilirubin 0.4 MG/DL (0.2-1.0) Aspartate Amino Transf (AST/SGOT) 24 U/L (15-37) Alanine Aminotransferase (ALT/SGPT) 26 U/L (12-78) Alkaline Phosphatase 89 U/L (46-116) Total Protein 6.1 G/DL (6.4-8.2) L Albumin 2.8 G/DL (3.4-5.0) L Globulin 3.3 g/dL Albumin/Globulin Ratio 0.8 (1.0-2.7) L Current Medications Medications (Trade) Dose Ordered Sig/Alecia Route PRN Reason Start Time Stop Time Status Last Admin Dose Admin Acetaminophen (Tylenol) 500 mg Q4H PRN ORAL For Pain Level <=5 10/07/18 02:30 11/06/18 02:29 10/16/18 20:42 Clonidine HCl (Catapres Tab) 0.1 mg DAILY ORAL 10/07/18 09:00 11/06/18 08:59 10/16/18 09:13 Dextromethorphan/ Quinidine (Nuedexta Capsule) 1 cap Q12HR ORAL 10/15/18 21:00 11/14/18 20:59 10/16/18 20:43 Divalproex Sodium (Depakote) 250 mg Q12HR ORAL 10/07/18 09:00 11/06/18 08:59 10/16/18 20:43 Docusate Sodium (Colace) 100 mg TWICE A DAY ORAL 10/07/18 09:00 11/06/18 08:59 10/15/18 17:00 Donepezil HCl (Aricept) 10 mg QHS ORAL 10/07/18 21:00 11/06/18 20:59 10/16/18 20:43 Duloxetine HCl (Cymbalta) 80 mg DAILY ORAL 10/07/18 09:00 11/06/18 08:59 10/16/18 09:13 Finasteride (Proscar) 5 mg DAILY ORAL 10/08/18 14:15 11/07/18 14:14 10/16/18 09:12 Levothyroxine Sodium (Synthroid) 150 mcg DAILY@0630 ORAL 10/07/18 06:30 11/06/18 06:29 10/16/18 06:49 Losartan Potassium (Cozaar) 50 mg DAILY ORAL 10/07/18 09:00 11/06/18 08:59 10/16/18 09:13 Oxybutynin Chloride (Ditropan) 5 mg Q8HR ORAL 10/11/18 18:26 11/10/18 18:25 10/16/18 20:43 Polyethylene Glycol (Miralax) 17 gm DAILY ORAL 10/07/18 09:00 11/06/18 08:59 10/11/18 08:49 Ramelteon (Rozerem) 8 mg QHS ORAL 10/08/18 21:00 11/07/18 20:59 10/16/18 20:43 Salmeterol Xinafoate/ Fluticasone (Advair 100/50 Diskus) 1 puffs TWICE A DAY INH 10/07/18 09:00 11/06/18 08:59 10/16/18 19:24 Sodium Chloride ([place] Nasal [place]) 2 spray DAILY PRN NASAL Dryness 10/07/18 02:00 11/06/18 01:59 Tamsulosin HCl (Flomax) 0.4 mg BEDTIME ORAL 10/07/18 21:00 11/06/18 20:59 10/16/18 20:43 Height (Feet): 6 Height (Inches): 0.00 Weight (Pounds): 164 General Appearance: no apparent distress, alert, non-toxic Head: normocephalic, atraumatic Eyes: bilateral anicteric ENT: normal voice Neck: full range of motion, no mass Respiratory: lungs clear, decreased breath sounds Cardiovascular: regular rate, rhythm Gastrointestinal: normal bowel sounds, non tender, soft, no mass, no organomegaly, non-distended Musculoskeletal: no calf tenderness Edema: no edema noted Generalized Neurologic: no new focality Alban Temple MD Oct 16, 2018 21:32
[2018-10-17] VITALS: BP 114/58
[2018-10-17] MEDS: Acetaminophen 650mg/20.3ml ORAL PRN ×3 (01:21→20:53)
[2018-10-17 04:00] VITALS: BP 149/70
--- NOTE | 2018-10-17 04:26 | NUR ---
NURSE NOTES: Pt is asleep in bed, no acute distress noted. Vitals stable.
[2018-10-17] MEDS: Oxybutynin 5mg tab ORAL SCH ×3 (06:31→20:52)
--- NOTE | 2018-10-17 07:15 | NUR ---
HAND-OFF: Report given to Vero Santos RN.
--- NOTE | 2018-10-17 07:25 | NUR ---
NURSE NOTES: received patient in bed, awake and alert. No acute distress noted. Bray cath draining yellow urine.on fall precaution Bed locked low in position, side rails up and call light with in reach. Bed alarm on. Pt will be monitored. mercedez pressley
[2018-10-17 08:00] VITALS: BP 145/57
[2018-10-17] MEDS: Losartan 50mg tab ORAL SCH (08:13)
[2018-10-17] MEDS: Docusate 100mg cap ORAL SCH ×2 (08:13→17:05)
[2018-10-17] MEDS: Nuedexta Capsule 20/10mg ORAL SCH ×2 (08:13→20:52)
[2018-10-17] MEDS: Miralax 17gm pkt ORAL SCH (08:13)
[2018-10-17 08:39] LABS: BASOPHILS % (AUTO) 1.5 % (0.0-2.0); HEMATOCRIT 27.2 % (42.0-52.0); HEMOGLOBIN 8.5 G/DL (14.2-18.0); LYMPHOCYTES % (AUTO) 17.9 % (20.0-45.0); MEAN CORPUSCULAR VOLUME 87 FL (80-99); MONOCYTES % (AUTO) 8.9 % (1.0-10.0); NEUTROPHILS % (AUTO) 65.7 % (45.0-75.0); PLATELET COUNT 245 K/UL (150-450); RED BLOOD COUNT 3.14 M/UL (4.70-6.10); RED CELL DISTRIBUTION WIDTH 21.2 % (11.6-14.8); WHITE BLOOD COUNT 4.5 K/UL (4.8-10.8)
[2018-10-17] MEDS: Wixela 100/50 Inhaler - 60 dose INH SCH ×2 (09:38→19:34)
[2018-10-17 11:39] VITALS: BP 123/67
[2018-10-17 15:45] VITALS: BP 129/62
--- NOTE | 2018-10-17 15:54 | NUR ---
RESPIRATORY NOTE: EKG done and printout EKG given to Ashley FLEMING.
--- NOTE | 2018-10-17 19:20 | NUR ---
HAND-OFF: Report given to LONNIE Curtis RN.
--- NOTE | 2018-10-17 19:53 | NUR ---
NURSE NOTES: Pt is in bed, awake and alert. No acute distress noted. Bray was removed during last shift, pt is voiding well. Bed locked low in position, side rails up and call light with in reach. Bed alarm on. Pt will be monitored.
[2018-10-17 20:00] VITALS: BP 144/74
[2018-10-17] MEDS: Ramelteon 8mg tab (Approved for Delirium use only) ORAL SCH (20:52)
[2018-10-17] MEDS: Tamsulosin 0.4mg cap ORAL SCH (20:52)
[2018-10-17] MEDS: Donepezil 10mg tab ORAL SCH (20:52)
--- NOTE | 2018-10-17 21:10 | Geriatric Progress Note ---
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 Will d/c to SNF in am. Discussed with: patient, hospital staff Subjective Interval Events Catheter removed, voiding per staff. No evidence of recurrent hematuria. Eating well. No new c/o. Feels well. Labs without significant change. EKG with QTc 454. Constitutional: Denies: chills, pain, sweats, fever Respiratory: Denies: cough, shortness of breath Cardiovascular: Denies: chest pain, palpitations Gastrointestinal/Abdominal: Denies: abdominal pain, nausea, vomiting Genitourinary: Denies: dysuria Geriatric Geriatric Last 24 Hour Vital Signs Date Time Temp Pulse Resp B/P (MAP) Pulse Ox O2 Delivery O2 Flow Rate FiO2 10/17/18 20:00 97.0 65 18 144/74 (97) 95 10/17/18 19:36 65 18 95 Room Air 21 10/17/18 19:34 64 18 95 Room Air 21 10/17/18 15:45 98.9 69 20 129/62 (84) 97 10/17/18 11:39 97.3 91 18 123/67 (85) 95 10/17/18 09:40 73 18 95 Room Air 21 10/17/18 09:38 73 18 95 Room Air 21 10/17/18 08:20 Room Air 10/17/18 08:13 149/70 10/17/18 08:13 149/70 10/17/18 08:00 97.9 76 20 145/57 (86) 95 10/17/18 04:00 97.3 70 19 149/70 (96) 95 10/17/18 00:00 96.8 75 19 114/58 (76) 95 Intake and Output 10/16/18 10/17/18 19:00 07:00 Intake Total 880 ml Output Total 1300 ml 950 ml Balance -420 ml -950 ml Intake Oral 880 ml Output Urine Total 1300 ml 950 ml # Voids 2 # Bowel Movements 2 Laboratory Tests Test 10/17/18 08:09 White Blood Count 4.5 K/UL (4.8-10.8) L Red Blood Count 3.14 M/UL (4.70-6.10) L Hemoglobin 8.5 G/DL (14.2-18.0) L Hematocrit 27.2 % (42.0-52.0) L Mean Corpuscular Volume 87 FL (80-99) Mean Corpuscular Hemoglobin 27.3 PG (27.0-31.0) Mean Corpuscular Hemoglobin Concent 31.4 G/DL (32.0-36.0) L Red Cell Distribution Width 21.2 % (11.6-14.8) H Platelet Count 245 K/UL (150-450) Mean Platelet Volume 5.8 FL (6.5-10.1) L Neutrophils (%) (Auto) 65.7 % (45.0-75.0) Lymphocytes (%) (Auto) 17.9 % (20.0-45.0) L Monocytes (%) (Auto) 8.9 % (1.0-10.0) Eosinophils (%) (Auto) 6.0 % (0.0-3.0) H Basophils (%) (Auto) 1.5 % (0.0-2.0) Current Medications Medications (Trade) Dose Ordered Sig/Alecia Route PRN Reason Start Time Stop Time Status Last Admin Dose Admin Acetaminophen (Tylenol) 500 mg Q4H PRN ORAL For Pain Level <=5 10/07/18 02:30 11/06/18 02:29 10/17/18 20:53 Clonidine HCl (Catapres Tab) 0.1 mg DAILY ORAL 10/07/18 09:00 11/06/18 08:59 10/17/18 08:13 Dextromethorphan/ Quinidine (Nuedexta Capsule) 1 cap Q12HR ORAL 10/15/18 21:00 11/14/18 20:59 10/17/18 20:52 Divalproex Sodium (Depakote) 250 mg Q12HR ORAL 10/07/18 09:00 11/06/18 08:59 10/17/18 20:52 Docusate Sodium (Colace) 100 mg TWICE A DAY ORAL 10/07/18 09:00 11/06/18 08:59 6/9/19 17:05 Donepezil HCl (Aricept) 10 mg QHS ORAL 10/07/18 21:00 11/06/18 20:59 10/17/18 20:52 Duloxetine HCl (Cymbalta) 80 mg DAILY ORAL 10/07/18 09:00 11/06/18 08:59 10/17/18 08:14 Finasteride (Proscar) 5 mg DAILY ORAL 10/08/18 14:15 11/07/18 14:14 10/17/18 08:14 Levothyroxine Sodium (Synthroid) 150 mcg DAILY@0630 ORAL 10/07/18 06:30 11/06/18 06:29 10/17/18 06:31 Losartan Potassium (Cozaar) 50 mg DAILY ORAL 10/07/18 09:00 11/06/18 08:59 10/17/18 08:13 Oxybutynin Chloride (Ditropan) 5 mg Q8HR ORAL 10/11/18 18:26 11/10/18 18:25 10/17/18 20:52 Polyethylene Glycol (Miralax) 17 gm DAILY ORAL 10/07/18 09:00 11/06/18 08:59 10/17/18 08:13 Ramelteon (Rozerem) 8 mg QHS ORAL 10/08/18 21:00 11/07/18 20:59 10/17/18 20:52 Salmeterol Xinafoate/ Fluticasone (Advair 100/50 Diskus) 1 puffs TWICE A DAY INH 10/07/18 09:00 11/06/18 08:59 10/17/18 19:34 Sodium Chloride ([place] Nasal [place]) 2 spray DAILY PRN NASAL Dryness 10/07/18 02:00 11/06/18 01:59 Tamsulosin HCl (Flomax) 0.4 mg BEDTIME ORAL 10/07/18 21:00 11/06/18 20:59 10/17/18 20:52 Height (Feet): 6 Height (Inches): 0.00 Weight (Pounds): 164 General Appearance: no apparent distress, alert, non-toxic Head: normocephalic, atraumatic Eyes: bilateral anicteric ENT: normal voice Neck: full range of motion, no mass Respiratory: lungs clear, decreased breath sounds Cardiovascular: regular rate, rhythm Gastrointestinal: normal bowel sounds, non tender - suprapubic pressure gives patient sense of needing to void., soft, no mass, no organomegaly, non-distended Musculoskeletal: no calf tenderness Edema: no edema noted Generalized Neurologic: no new focality Alban Temple MD Oct 17, 2018 21:10
[2018-10-17] MEDS ORDERED: FINASTERIDE5 MG ORAL (21:14)
[2018-10-17] MEDS ORDERED: FLOMAX0.4 MG ORAL (21:14)
[2018-10-18] VITALS: BP 118/68
[2018-10-18] MEDS: Acetaminophen 650mg/20.3ml ORAL PRN (03:04)
[2018-10-18 04:00] VITALS: BP 152/76
[2018-10-18] MEDS: Oxybutynin 5mg tab ORAL SCH (05:40)
--- NOTE | 2018-10-18 07:05 | NUR ---
HAND-OFF: Report given to Kamilla Rodríguez RN.Informed that pt has a discharge order.
--- NOTE | 2018-10-18 07:25 | NUR ---
NURSE NOTES:BEDSIDE ROUNDS WITH AJ RN.PATIENT AWAKE A/O X2-3,ROOM AIR,BED LOCKED,NO C/O PAIN.ANTICIPATING FOR D/C TODAY TO [facility].
[2018-10-18 08:00] VITALS: BP_SYST 124; BP_SYST 143; BP_DIAS 89; BP_DIAS 98
[2018-10-18] MEDS: Nuedexta Capsule 20/10mg ORAL SCH (08:34)
[2018-10-18] MEDS: Losartan 50mg tab ORAL SCH (08:36)
[2018-10-18] MEDS: Docusate 100mg cap ORAL SCH (08:41)
[2018-10-18] MEDS: Miralax 17gm pkt ORAL SCH (08:41)
--- NOTE | 2018-10-18 09:49 | NUR ---
DISCHARGE PLANNED [facility] RO[facility] [address] SKILLED T [phone] FOR NURSE TO NURSE REPORT [facility] WILL VAN CDL DRIVER AT 1100
--- NOTE | 2018-10-18 10:43 | NUR ---
NURSE NOTES:REPORT GIVEN TO MEAGAN FLEMING.RE:TRANSFER REPORT TO [facility].
[2018-10-18] MEDS: Wixela 100/50 Inhaler - 60 dose INH SCH (11:19)
[2018-10-18 12:00] VITALS: BP 146/75
--- NOTE | 2018-10-18 12:30 | NUR ---
NURSE NOTES:PICKED UP BY [facility],REPORT GIVEN TO KEM(AMBULANCE TECH),PATIENTS BELONGINGS CONFIRMED WITH TECH AND CHARGE NURSE([place])RE:PATIENT HAS ONLY 5.00$(FIVE DOLLARS)ON DISCHARGE.WHILE ON ADMISSION LIST IS 94$(NNINETY FOUR DOLLARS)PATIENT STABLE ON AUDIO ENGINEER
--- NOTE | 2018-10-18 15:09 | Discharge Summary ---
Discharge Summary Discharge Summary _ Date of Admission: October 06, 2018. Date of Discharge: October 18, 2018. Discharge Diagnoses: 1. Symptomatic anemia, requiring transfusion of 4 units prbc. 2. Iron deficiency with saturation 5%, treated with Venofer 100 mg x 6. 3. Approximately 6 week history of persistent gross hematuria, found to be due to venous and superficial prostatic bleeding, treated with cystoscopy and fulguration x 2. 4. Metastatic prostate cancer of uncertain severity with unclear treatment history. 5. Adult failure to thrive due to poor self-care, resolving with prison facility treatment. 6. 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 7. History of spinal compression fractures, foraminal stenosis, and recurrent complaints of low back pain. 8. Bony pathology suggestive of rib fracture versus pathologic fractures. 9. Chronic pain syndrome. 10. Idiopathic peripheral neuropathy with neuropathic pain. 11. 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 12. Depressive syndrome with anxiety improved after discontinuation of benzodiazepines, narcotics, and initiation of Cymbalta. 13. Resolved encephalopathy associated with inappropriate use of benzodiazepines and narcotics. 14. Status post right lung surgery for cancer. 15. Possible history of cirrhosis. 16. Chronic obstructive lung disease. 17. History of proptosis status post surgery. 18. History of thyrotoxicosis status post radioactive iodine ablation. 19. History of shingles. 20. 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 21. Osteoarthritis. 22. Osteoporosis. Discharge Medication: 1. Acetaminophen 500 mg every 4 hours as needed. 2. Advair Diskus 100/51 puff twice daily. 3. Aricept 10 mg nightly. 4. Clonidine 0.1 mg every morning. 5. Depakote extended release 250 mg twice daily. 6. Docusate 100 mg twice daily. 7. Donepezil 10 mg nightly. 8. Duloxetine 80 mg daily. 9. Finasteride 5 mg daily. 10. Levothyroxine 150 mcg daily. 11. Losartan 50 mg daily. 12. MiraLAX 17 g every 24 hours as needed. 13. Saline nasal spray 2 sprays each nostril twice daily as needed. 14. Tamsulosin 0.4 mg nightly. 15. Vitamin D3 3000 units daily. History of Present Illness: Mr. Gipson is an 83-year-old gentleman presented with symptomatic anemia with hematocrit of 17%, in the setting of approximately 4 weeks of persistent gross hematuria. He had a history of prostate cancer, had been receiving treatment through [facility], but follow-up appointments had not been available. Because of the finding of severe anemia and weakness patient was transferred to [facility]. Details of the history and physical examination are per the dictation of October 06, 2018. Hospital Course: For stabilization of the patient's anemia he received ultimately a transfusion of 4 units of packed red blood cells which was staggered over a number of days because of recurrent anemia associated with persistent hematuria. Patient's iron studies also revealed an iron saturation of 5%, and over the course of the hospitalization he ultimately received Venofer 100 mg intravenously x6 doses. Because of the persistent hematuria, Mr. Gipson was seen in urologic consultation by Dr. Kulwant Mendoza. Renal and pelvic ultrasound and subsequently CT scan of the abdomen and pelvis were done and did raise the possibility of a bladder lesion but no other specific source for either upper tract or lower tract bleeding sources. After initial consultation, Dr. Mendoza recommended cystoscopy to identify the source of bleeding and to allow local treatment if indicated. On October 11, Mr. Gipson underwent cystoscopy and fulguration. Dr. Mendoza reported that there is no significant evidence of masses or bleeding lesions in the upper tracts or the bladder, and the apparent source of bleeding were superficial venous sites on the prostate. After the fulguration the patient had a Bray catheter placed both to help tamponade the lesion, and to monitor the urine. Unfortunately the patient continued to bleed, initially relatively slowly but then more briskly. After further discussion and reevaluation, Dr. Mendoza elected to proceed with repeat cystoscopy, done on October 15, 2018. Once again there were no specific lesions except for a venous bleeding site on the dome of the prostate. Dr. Mendoza fulgurated that lesion and the surrounding area. A three-way catheter was placed for continuous irrigation x24 hours, and then subsequently the irrigation was discontinued. Over another 24 hours patient was observed, but no postoperative hematuria was noted after the second procedure. The Bray catheter was removed, the patient was observed had no difficulty urinating, and was deemed stable for discharge back to his prison facility. During the hospitalization, the patient's neuropathic symptoms and chronic pain symptoms were monitored. There is generally well controlled on the patient's duloxetine and Tylenol, although when the patient became more uncomfortable with his hematuria in the Bray catheter he would become more labile and also complained more of pain asking for intravenous morphine. Due to these accelerated symptoms patient was given Nuedexta during the hospitalization with good response. At this time since the patient is more comfortable and not irritated by his Bray catheterization this medication has been stopped. Patient also intermittently complained of difficulty with sleeping, and would display increased confusion, representing a mild encephalopathy. Rozerem was added with good response. This will also be discontinued since it is hoped that the patient will not require encephalopathy prophylaxis at the prison facility at this time. The patient's QT interval was monitored because of the high dose of duloxetine and his other medical problems. At the time of discharge on 80 mg of Cymbalta, the QTC was approximately 450 which would appear to be acceptable in this patient. Patient's other medications and treatments were continued without need for further titration. Mobilization was begun with physical therapy but will did not advance because of the multiple procedures and the use of Bray catheter. At this time the patient is discharged back to [facility] level of care and rehabilitation. The patient will be followed there. Alban Temple MD Oct 18, 2018 15:09
--- NOTE | 2018-10-19 11:06 | Diagnostic Imaging Report ---
APPROVED REPORT CPT Code: 64933 Present Symptoms Comments: LEFT ARM PAIN AND SWELLING. LEFT UPPER EXTREMITY (Deep venous system): Imaging reveals patency of the internal jugular, subclavian, axillary and brachial veins. Doppler indicates normal spontaneous flow within these venous segments.
--- NOTE | 2018-10-19 11:06 | Diagnostic Imaging Report ---
APPROVED REPORT CPT Code: 47817 Symptoms Left Comments LEFT ARM PAIN AND SWELLING. LEFT UPPER EXTREMITY: Imaging of the subclavian, axillary, brachial, radial and ulnar arteries is within normal limits. There is no evidence of stenosis or occlusions within these segments. The Doppler waveforms of the left upper extremity are multiphasic, consistent with normal inflow to the left upper extremity.
--- NOTE | 2018-10-20 21:11 | Cardiology Report ---
APPROVED REPORT EKG Measurement Heart [id number] Normal sinus rhythm Normal ECG
== END 2018-10-18 12:37 | DRG 666 ==
LOC: EDBD 19:01 → EDBEDREQ 19:30 → EMR 19:59 → 4E 20:11 → EDBEDREQ 20:26
PROC: 0V508ZZ Destruction of Prostate, Via Natural or Artificial Opening Endoscopic (ICD-10-PCS; principal; 2018-10-08 13:00)
PROC: 0V508ZZ Destruction of Prostate, Via Natural or Artificial Opening Endoscopic (ICD-10-PCS; 2018-10-15)
PROC: 0T5C8ZZ Destruction of Bladder Neck, Via Natural or Artificial Opening Endoscopic (ICD-10-PCS; 2018-10-15)
DX: N02.8 Recurrent and persistent hematuria with other morphologic changes (principal); C79.51 Secondary malignant neoplasm of bone; G93.40 Encephalopathy, unspecified; C61 Malignant neoplasm of prostate; D50.0 Iron deficiency anemia secondary to blood loss (chronic); J44.9 Chronic obstructive pulmonary disease, unspecified; G62.9 Polyneuropathy, unspecified; M81.0 Age-related osteoporosis without current pathological fracture; G89.4 Chronic pain syndrome; R62.7 Adult failure to thrive; F32.9 Major depressive disorder, single episode, unspecified; F41.9 Anxiety disorder, unspecified; F60.9 Personality disorder, unspecified; F01.50 Vascular dementia, unspecified severity, without behavioral disturbance, psychotic disturbance, mood disturbance, and anxiety
CPT/HCPCS: 36415; 74178; 76770; 80048; 80053; 82728; 83540; 83550; 83690; 83735; 84153; 84439; 84443; 85007; 85025; 85610; 85730; 86850; 86900; 86901; 86920; 87081; 93005; 93931; 93971; 94003; 94150; 94640; 99285